=== PATIENT | female | born 1950 | race Caucasian/White ===

== ENCOUNTER → 2022-06-08 12:21 | Outpatient (CLI) | payer MEDICARE, SELFPAY ==
--- NOTE | ~2022-06-08 | DEXA_ITS ---
Bone Density Report Name: TRACY WILL Age: 72 Sex: Female Ethnicity: White Date of : 1950 Indication: postmenopausal; screening for osteoporosis; height loss; Referring Provider: RUBEN, LUNA Moore Study: Bone densitometry was performed. Exam Date: June 08, 2022 Accession number: [id number] Bone Density: Region BMD T-score Z-score Classification AP Spine (L1-L4) 0.742 -2.8 -0.5 Osteoporosis Femoral Neck (Left) 0.603 -2.2 -0.3 Osteopenia Total Hip (Left) 0.644 -2.4 -0.8 Osteopenia Femoral Neck (Right) 0.598 -2.3 -0.3 Osteopenia Total Hip (Right) 0.679 -2.2 -0.5 Osteopenia Total Hip Mean 0.662 -2.3 -0.7 Osteopenia World Health Organization criteria for BMD impression classify patients as: Normal (T-score at or above -1.0), Osteopenia (T-score between -1.0 and -2.5), or Osteoporosis (T-score at or below -2.5). 10-year Fracture Risk: FRAX not reported because: Some T-score for Spine Total or Hip Total or Femoral Neck at or below -2.5 Clinical Information Provided by Patient: Has used the following medications: Vitamin D, Calcium, MTV Patient maximum height was 67 Menopause Age: 50 Drinks caffeinated beverages Onset of menses at age 13 Number of children 0 Impression: The patient has osteoporosis, based on the Total Spine T-score. Discussion: INCREASED RISK OF FRACTURE. BONE DENSITY IS UNDESIRABLY LOW AT ONE OR MORE SKELETAL SITES, CONSISTENT WITH POSTMENOPAUSAL OSTEOPOROSIS. This patient's lowest T-score meets the World Health Organization's (WHO) criteria for osteoporosis at one or more sites (T-score -2.5 or below). In untreated patients, the risk of osteoporotic fracture increases approximately two-fold for each 1.0 SD decrease in T-score. Low bone density is not the only risk factor for fracture; also consider factors such as patient's age, frailty or poor health, risk of falling, risk of injury, previous osteoporotic fracture, family history of osteoporosis, cigarette smoking, low body weight, etc. Not everyone with low bone mineral density has osteoporosis; osteomalacia and other metabolic bone disorders should also be considered. Patients who have osteoporosis should be evaluated for specific diseases and conditions (secondary causes) that may cause or contribute to bone loss. The [place] Association of Clinical Endocrinologists (AACE) and National Osteoporosis Foundation (NOF) recommend pharmacologic intervention for all postmenopausal women whose T-score is in this range. The patient should follow a healthful lifestyle (good nutrition with adequate calcium and vitamin D, and appropriate weight-bearing exercise). Follow-Up: Consider a repeat BMD and Vertebral Fracture Assessment (VFA) exam in 2 years or sooner if medically necessary, to reassess this patient's status. Repor
== END ==
PROVIDERS: PCP Family Medicine; Visit Provider Family Medicine
DX: M81.0 Age-related osteoporosis without current pathological fracture (principal)
CPT/HCPCS: 77080

== ENCOUNTER 2024-02-20 11:15 | Outpatient (CLI) | payer MEDICARE, SELFPAY ==
--- NOTE | ~2024-02-20 | MR_ITS ---
MRI of the lumbar spine Clinical History: Radiculopathy Technique: Axial T2-weighted images, and sagittal T1-weighted, T2-weighted, and and T2 fat-sat images were acquired. Findings: No fracture identified. There is 6 mm anterolisthesis of L4 over L5. No suspicious bone mar row signal reality seen. At L1-L2, there is no disc bulge or herniation. There is mild facet joint hypertrophy. No central can al stenosis or neural foraminal narrowing. At L2-L3, there is minimal disc bulge and mild facet joint hypertrophy. No central canal stenosis. Th ere is minimal bilateral neural foraminal narrowing, right worse than left. At L3-L4, there is mild diffuse disc bulge with moderate facet arthropathy. There is mild central can al stenosis. There is mild to moderate right neural foraminal narrowing, and mild left neural foramin al narrowing. At L4-L5, there is disc bulge/uncovering with severe facet arthropathy. There is moderate central can al stenosis. There is moderate right neural foraminal narrowing. There is minimal left neural foramin al narrowing. At L5-S1, there is moderate degenerative disc narrowing. There is minimal disc bulge with moderate fa cet arthropathy. No central canal stenosis. There is moderate bilateral neural foraminal narrowing, r ight worse than left. Paravertebral soft tissues are unremarkable. Impression: Moderate degenerative spondylosis overall, as detailed above, probably worst at L4-L5. 6 mm anterolisthesis of L4 over L5. Reviewed, dictated and finalized at [facility]. Impression: Moderate degenerative spondylosis overall, as detailed above, probably worst at L4-L5. 6 mm anterolisthesis of L4 over L5.
== END 2024-02-20 11:16 | disposition home or self-care (01) ==
LOC: GOSHIMG 11:16
PROVIDERS: PCP Family Medicine; Visit Provider Physician Assistant Surgical
DX: M47.896 Other spondylosis, lumbar region (principal); M43.16 Spondylolisthesis, lumbar region
CPT/HCPCS: 72148

== ENCOUNTER 2024-09-23 13:53 | Outpatient (CLI) | payer MEDICARE, SELFPAY ==
--- OUTSIDE RECORDS SUMMARY | 2024-09-23 15:17 | XMS_ITS | Clinical Summary ---
Author Organization [facility] Address [address] [place] [id number] Care Team Providers Care Clinical Support Manager Name Role Phone Luis Venegas MD Primary Care Provider [phone] Allergies Active Allergy Reactions Criticality Noted Date Comments Diltiazem Anaphylaxis,Nausea a nd Vomiting,Fatigue High 10/29/2023 Metoprolol Anaphylaxis,Nausea a nd Vomiting,Fatigue High 10/29/2023 Medications apixaban (ELIQUIS) 5 MG tablet Take 1 tablet (5 mg total) by mouth 2 (two) times daily. Active ibandronate (BONIVA) 150 MG tablet Take 1 tablet (150 mg total) by mouth every 30 (thirty) days. Takes on the of the Active levothyroxine (SYNTHROID) 100 MCG tablet Take 1 tablet (100 mcg total) by mouth every morning. Active magnesium oxide (MAG-OX) 400 (240 Mg) MG tablet Take 1 tablet (400 mg total) by mouth daily. Active ferrous sulfate, 65 mg elemental, 325 (65 FE) MG tablet Take 1 tablet (325 mg total) by mouth daily with breakfast. Active omeprazole (PRILOSEC) 40 MG capsule Take 1 capsule (40 mg total) by mouth daily. 90 capsule 1 12/14/2023 Active amiodarone (PACERONE) 200 MG tablet Take 0.5 tablets (100 mg total) by mouth daily. 45 tablet 2 07/01/2024 Active Active Problems Problem Noted Date Diagnosed Date Age-related osteoporosis wit hout current pathological fracture 11/15/2023 Overview (12/14/2023): Last Assessment & Plan: Refill Boniva and check DEXA Atrial fibrillation ([facility]) 09/25/2023 Atrial flutter ([facility]) 09/24/2023 Paroxysmal atrial fibrillation ([facility]) 09/20/2023 Overview (12/14/2023): Last Assessment & Plan: Status post ablation so far doing well remains on anticoagulation and amiodarone at this time recent thyroid labs reviewed Osteoporosis 09/05/2022 Arthralgia of left knee 04/23/2022 Hypothyroidism 01/20/2020 Overview (12/14/2023): Last Assessment & Plan: Recent thyroid labs reviewed Screen for colon cancer 12/21/2017 Overview (12/14/2023): Added automatically from request for surgery [id number] Encounters Date Type Department Care Team Description 07/01/2024 Telephone [facility] [phone] Ana Guerrero CMA Refill Request (Amiodarone/) 07/01/2024 MyChart Message Enc [facility] [phone] Hilda Dowling PA-C amiodarone from Last 3 Months Immunizations Immunization Administration Dates Next Due MODERNA COVID-19 BIVALENT (12+), MRNA, LNP-S, PF 09/16/2022,04/23/2022 MODERNA COVID-19 (12+) MRNA, LNP-S, PF, 100 MCG/ 0.5 ML DOSE 03/23/2021,07/09/2020 MODERNA COVID-19 (12+), MRNA , LNP-S, PF, 50 MCG/0.5 ML (SPIKEVAX) 03/01/2023 MODERNA COVID-19 ([employer] KADE DAMON), MRNA, LNP-S, PF, 50 MCG/ 0.25 ML DOSE 09/04/2021 Family History Medical History Relation Comments Alcohol Abuse Father Heart Father Hypertension Father Arthritis Mother Cancer Mother Miscarriages / Stillbirths Mother Relation Status Comments Father Mother Social History Tobacco Use Types Packs/Day Years Used Date Smoking Tobacco: Never Smokeless Tobacco: Never Tobacco Cessation:Counseling Given: Not Answered Alcohol Use Standard Drinks/Week Comments Yes 1.7 (1 standard drink = 0.6 oz p ure alcohol) one daily glass of wine B1300 Health Literacy Answer Date Recor ded How often do you need to hav e someone help you when you read instructions, pamphlets, or other written material from your doctor or pharmacy? Never 09/24/2023 [facility] Utilities Answer Date Recorded In the past 12 months has e [employer], gas, oil, or water [employer] threatened to shut off services in your home? Patient declined 09/24/2023 Humiliation, Afraid, Rape, and Kick questionnair e Answer Date Recorded Within the last year, have y ou been afraid of your partner or ex-partner? No 09/24/2023 Within the last year, have y ou been humiliated or emotionally abused in other ways by your partner or ex-partner? Patient declined 09/24/2023 Within the last year, have y ou been kicked, hit, slapped, or otherwise physically hurt by your partner or ex-partner? Patient declined 09/24/2023 Within the last year, have y ou been raped or forced to have any kind of sexual activity by your partner or ex-partner? Patient declined 09/24/2023 Social Connection and Isolation Panel [NHANES] A nswer Date Recorded In a typical week, how many times do you talk on the phone with family, friends, or neighbors? Once a week 09/24/2023 How often do you get togethe r with friends or relatives? Once a week 09/24/2023 How often do you attend yazidi or catholic serv ices? Patient declined 09/24/2023 Do you belong to any clubs o r organizations such as yazidi groups, unions, fraternal or athletic groups, or school groups? Patient declined 09/24/2023 How often do you attend meet ings of the clubs or organizations you belong to? Patient declined 09/24/2023 Are you , , di vorced, , never , or living with a partner? 09/24/2023 AUDIT-C Answer Date Recorded Q1: How often do you have a drink containing alcohol? 4 or more times a week 09/24/2023 Q2: How many drinks containi ng alcohol do you have on a typical day when you are drinking? 1 or 2 Q3: How often do you have si x or more drinks on one occasion? Patient declined 09/24/2023 Overall Financial Resource Strain (CARDIA) Answe r Date Recorded How hard is it for you to pa y for the very basics like food, housing, medical care, and heating? Patient declined 09/24/2023 [facility] - Occupational Stress Questionnaire Answer Date Recorded Do you feel stress - tense, restless, nervous, or anxious, or unable to sleep at night because your mind is troubled all the time - these days? Patient declined 09/24/2023 Exercise Vital Sign Answer Date Recorde d On average, how many days pe r week do you engage in moderate to strenuous exercise (like a brisk walk)? 7 days 09/24/2023 On average, how many minutes do you engage in exercise at this level? 50 min 09/24/2023 Hunger Vital Sign Answer Date Recorded Within the past 12 months, y ou worried that your food would run out before you got the money to buy more. Patient declined Within the past 12 months, t he food you bought just didn't last and you didn't have money to get more. Patient declined PRAPARE - Transportation Answer Date Re corded In the past 12 months, has l ack of transportation kept you from medical appointments or from getting medications? Patient declined 09/24/2023 In the past 12 months, has l ack of transportation kept you from meetings, work, or from getting things needed for daily living? Patient declined 09/24/2023 Housing Stability Vital Sign Answer Emeka e Recorded In the last 12 months, was t here a time when you were not able to pay the mortgage or rent on time? Patient declined 09/24/19 24 In the past 12 months, how m any times have you moved where you were living? 1 09/24/2023 At any time in the past 12 m [facility], were you homeless or living in a longterm (including now)? Patient declined 09/24/2023 Comments Unknown Sex and Gender Information Value Date Recorded Sex Assigned at Not on file Legal Sex Female 6:05 PM CDT Gender Identity Not on file Sexual Orientation Lesbian 11/07/2023 2: 50 PM CDT Last Filed Vital Signs Vital Sign Reading Time Taken Comments Blood Pressure 124/72 06/09/2024 2:25 PM [employer] Pulse 88 06/09/2024 2:25 PM [employer] Temperature 36.2 C (97.2 F) 11/13/2023 6:46 AM CDT Respiratory Rate 19 11/13/2023 2:00 PM CDT Oxygen Saturation 93% 06/09/2024 2:25 PM [employer] Inhaled Oxygen Concentration - - Weight 54.3 kg (119 lb 12.8 oz) 06/09/2024 2:25 PM [employer] Height 170.2 cm (5' 7 ) 06/09/2024 2:25 PM [employer] Body Mass Index 18.76 06/09/2024 2:25 PM [employer] Plan of Treatment Upcoming Encounters Date Type Department Care Team (Late st Contact Info) Description 12/08/2024 3:00 PM CDT Office Visit [facility] [address] [place], [place] [phone] Pebbles Nugent MD [facility]. [facility] [address], [place] [id number] Health Maintenance Due Date Last Done Comments Colorectal Cancer Screening Colonoscopy (10 Years) 1950 Hepatitis C 02/27/1968 DTaP, Tdap and Td Vaccines (1 - Tdap) 1969 Annual Medicare Wellness Visit 2015 Dexa Scan (General) 2015 COVID-19 Vaccine ( season) 2024 03/01/2023, 09/16/2022, 04/23/2022, Additional history exists Mammogram Screening 03/02/2025 03/02/2023, 03/07/2022, 01/21/2021, Additional history exists Pneumococcal Vaccine: 50+ Years Completed 12/09/2015, 03/28/2015, 03/28/2006 Zoster Vaccines Completed 03/23/2020, 12/27, 12/09/2015 RSV Immunization or 60+ Years Completed 02/01/2023 Meningococcal B Vaccine Aged Out No l onger eligible based on patient's age to complete this topic Meningococcal Vaccine Aged Out No dede luis e eligible based on patient's age to complete this topic RSV Immunizations Under 20 Months Aged Out No longer eligible based on patient's age to complete this topic Insurance [employer]ET[employer] Advance Directives * Full Code (Latest Code Status on File) Date Activated Date Inactivated Comments 09/25/2023 5:27 PM 09/26/2023 2:00 PM * Full Code Date Activated Date Inactivated Comments 09/24/2023 8:47 PM 09/25/2023 5:27 PM Care Teams Clinical Support Manager Relationship Specialty Start Date End Date Luis Venegas MD [address] [address] PCP - General INTERNAL MEDICINE 09/24/23
--- OUTSIDE RECORDS SUMMARY | 2024-09-23 15:17 | XMS_ITS | Encounter Summary ---
Author Organization [facility] Address [address] [place] [address] Care Team Providers Care Brewmaster Name Role Phone Luis Venegas MD Primary Care Provider [phone] Encounter Details Date Type Department Care Team (Late st Contact Info) Description 09/27/2023 [employer] Message Enc [facility] [address] Hilda Dowling PA-C after surgery question Social History Tobacco Use Types Packs/Day Years Used Date Smoking Tobacco: Never Smokeless Tobacco: Never Alcohol Use Standard Drinks/Week Comments Yes 0 (1 standard drink = 0.6 oz pur e alcohol) 1x wine daily B1300 Health Literacy Answer Date Recor ded How often do you need to hav e someone help you when you read instructions, pamphlets, or other written material from your doctor or pharmacy? Never 09/24/2023 [facility] Utilities Answer Date Recorded In the past 12 months has [facility] [employer], [employer], or water [employer] threatened to shut off services in your [...] week 09/24/2023 How often do you attend anabaptist or adventist serv ices? Patient declined 09/24/2023 Do you belong to any clubs o r organizations such as anabaptist groups, unions, fraternal or athletic groups, or [...] medical care, and heating? Patient declined 09/24/2023 [facility] - Occupational Stress Questionnaire Answer Date Recorded [...] any time in the past 12 m [facility], were you homeless or living in a [place] facility (including now)? Patient declined 09/24/2023 Comments Unknown Sex and Gender Information Value Date Recorded Sex Assigned at Not on file Legal Sex Female 6:05 PM CDT Gender Identity Not on file Sexual Orientation Lesbian 11/07/2023 2: 50 PM CDT documented as of this encounter Functional Status * Are you deaf or do you have serious difficulty hearing Answer Date of Assessment Author Status No 09/24/2023 11:00 PM CDT Zahira Suazo R N Active * Are you blind or do you have serious difficulty seeing, even when wearing glasses? Answer Date of Assessment Author Status No 09/24/2023 11:00 PM KAMRY[employer] Zahira Suazo R N Active * Do you have serious difficulty walking or climbing stairs? Answer Date of Assessment Author Status No 09/24/2023 11:00 PM KAMRYNT Zahira Suazo R N Active * Do you have difficulty dressing or bathing? Answer Date of Assessment Author Status No 09/24/2023 11:00 PM KAMRYNT Zahira Suazo R N Active * Because of a physical, mental, or emotional condition, do you have difficulty doing errands alone such as visiting a doctor's office or shopping? Answer Date of Assessment Author Status No 09/24/2023 11:00 PM CDT Zahira Suazo R N Active documented as of this encounter Mental Status * Because of a physical, mental, or emotional condition, do you have serious difficulty concentrating, remembering, or making decisions? Answer Entry Date Author Status No 09/24/2023 11:00 PM CDT Zahira Suazo R N Active documented in this encounter Plan of Treatment Upcoming Encounters Date Type Department Care Team (Late st Contact Info) Description 12/08/2024 3:00 PM CDT Office Visit [facility] [address] [place] [address] Pebbles Nugent MD [facility]. [facility] [address] [place], [place] [phone] documented as of this encounter Visit Diagnoses Not on filedocumented in this encounter Care Teams Brewmaster Relationship Specialty Start Date End Date Luis Venegas MD [address] [address] PCP - General INTERNAL MEDICINE 09/24/23 documented as of this encounter
--- OUTSIDE RECORDS SUMMARY | 2024-09-23 15:17 | XMS_ITS | Encounter Summary ---
Author Organization [facility] Address [address] [place] [id number] Care Team Providers Care Professional Services Consultant Name Role Phone Luis Venegas MD Primary Care Provider [phone] Reason for Referral * Imaging (Routine) - Closed Specialty Diagnoses / Procedures Referred By Contac t Referred To Contact RADIOLOGY Diagnoses Atrial fibrillation ([facility] HHS/HCC) Procedures XA A-FIB ABLATION Pebbles Nugent MD [address] [address] Phone: tel: fax: Referral ID Status Reason Start Date Expiration Date Visits Re quested Visits Authorized [id number] Closed 10/05/2023 10/04/2024 1 1 * Imaging (Routine) - Authorized Specialty Diagnoses / Procedures Referred By Contac t Referred To Contact RADIOLOGY Diagnoses Atrial fibrillation ([facility] HHS/HCC) Procedures USE TRANSESOPHAGEAL ECHO Pebbles Nugent MD [address] [address] Phone: tel: fax: Referral ID Status Reason Start Date Expiration Date V isits Requested Visits Authorized [id number] Authorized 10/05/2023 10/04/2024 1 1 Encounter Details Date Type Department Care Team (Late st Contact Info) Description 10/03/2023 [employer] Message Enc [facility] [address] [place] [address] Pebbles Nugent MD Three [facility]. [address] [place] [address] Afib Ablation Social History Tobacco Use Types Packs/Day Years [...] from your doctor or pharmacy? Never 09/24/2023 [facility] Utilities Answer Date Recorded In the past 12 months has e [employer], gas, oil, or water [employer] threatened to shut off services in your [...] week 09/24/2023 How often do you attend scientology or tenriism serv ices? Patient declined 09/24/2023 Do you belong to any clubs o r organizations such as scientology groups, unions, fraternal or athletic groups, or [...] medical care, and heating? Patient declined 09/24/2023 [facility] - Occupational Stress [...] any time in the past 12 m [facility], were you homeless or living in a retirement (including now)? Patient declined 09/24/2023 Comments Unknown [...] CDT Zahira Suazo R N Active * Do you have serious difficulty walking or climbing stairs? Answer Date of Assessment Author Status No 09/24/2023 11:00 PM CDT Zahira Suazo R N Active * Do you have difficulty dressing or bathing? Answer Date of Assessment Author Status No 09/24/2023 11:00 PM CDT Zahira Suazo R N Active * Because [...] R N Active documented in this encounter Progress Notes * Kalyani Spencer - 10/05/2023 4:15 PM CDT Patient messaged back. Afib ablation scheduled for 11/13/23 at 7:30 am. Instruction letter sentto patient thru [facility] * Kalyani Spencer - 10/03/2023 11:14 AM CDT [employer] message sent to patient about scheduling afib ablation for Th11/08/23 at 7:30 am with Sherlyn. documented in this encounter Plan of Treatment Upcoming Encounters Date Type Department Care Team (Late st Contact Info) Description 12/08/2024 3:00 PM CDT Office Visit [facility] THREE [facility], [address] [place] [address] Pebbles Nugent MD Three [facility]. 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 Here for A/Fib ablation. Physical Exam: Vitals: Per nursing record. Abdominal: Normal HEENT: Carotid upstroke normal. Lungs: Clear to auscultation bilaterally. CV: PMI normal, S1/S2 normal. No murmurs noted. Extremities: No edema noted Vascular: No aortic/carotid/femoral bruits noted. Pulses: Femoral: 2+ DP: 2+ PT: 2+ Procedure: Consent was obtained from the patient after a full explanation of the risks and benefits of the procedure. The patient was brought to the electrophysiology lab in the fasting state. The patient was prepped and draped in a sterile fashion. General anesthesia administered by the anesthesia service was used for the procedure. Local anesthesia was infiltrated subcutaneously at the access site. Ultrasound guidance was used to access the veins and noted to be patent. Image was saved and archived Two 8Fr sheaths were inserted into the right femoral vein; two sheaths (7 and 9 Fr) were inserted into the left femoral vein. Invasive blood pressure was monitored with a 20Ga left radial arterial sheath. Vein was accessed with ultrasound and noted to be patent. Images were saved and archived. One decapolar catheter was advanced through the 7Fr sheaths under 3D mapping/ICE guidance into the coronary sinus. An 8Fr phased array ICE catheter was advanced to the heart through the 9Fr vascular sheath. Transseptal access: After initiating a heparin bolus and drip to achieve an ACT >350ms, dual transseptal punctures were performed using 3d Mapping/ICE guidance. Both transseptal sheaths were positioned in the left atrium to facilitate mapping and ablation. There were no immediate complications of transseptal access. An 8F Vizigo/Thermocool STSF catheter was inserted via the right femoral vein sheath and advanced across the interatrial septum to the left atrium. An 8F Octaray catheter was inserted via the right femoral vein sheath and advanced across the interatrial septum to the left atrium. Catheters/wires were advanced to the heart under 3d mapping/ICE guidance. CARTO 3D electroanatomic mapping was utilized. EP study: Baseline values: AH 110 HV 45 ms. VA conduction present at baseline, VAWCL < 400 ms. ICE study: Intracardiac echocardiography was used to facilitate a transseptal catheterization, monitor pulmonary vein flow, assist in ablation catheter positioning, assess in suspected or unusual anatomic features and monitor for procedural complications. AV: The aortic valve is tri-leaflet/sclerotic. There is trace aortic regurgitation. LA: The left atrium is dilated. The LA diameter = 5.5 cm. The left atrial appendage is normal. MV: The mitral valve is normal. There is mild mitral regurgitation. RA: The right atrium is normal. RV: The right ventricle is normal with normal function. TV: The tricuspid valve is normal. There is mild tricuspid regurgitation. PV: The pulmonic valve is normal. There is trace pulmonic regurgitation. Interatrial septum: The IAS is patent with no defect. Two transseptal punctures were performed to access the left atrium. LV: The left ventricle is normal with normal function. Pericardium: There is no pericardial effusion. Post procedure: There is no pericardial effusion. Ablation: Atrial fibrillation: A detailed electroanatomic map of the left atrium was created. The left pulmonary drainage pattern has two ostia and the right has two ostia to the LA. Pre-ablation baseline rhythm was normal sinus rhythm. An esophageal temperature probe was used and energy delivery was titrated accordingly. During ablation of the right sided veins, high output pacing was performed to map to the course of the phrenic nerve and ensure lack of phrenic nerve capture at sites of ablation. A right circumferential and left circumferential pulmonary vein isolation was performed. Multiple additional lesions were required for block in the LPV and RPV at the carinas. Entry and exit block were demonstrated after ablation. Adenosine was given and acute reconnection was noted in the LPV. Additional lesions were delivered here with achievement of entrance/exit block. After shutting off the medication, the ablation catheter was taken back to the right atrium and Heparin was discontinued. A redo cavotricuspid isthmus ablation was performed. Bidirectional block was achieved. Heparin was discontinued, sheaths and catheters were pulled back to the right atrium. Final ICE was performed with no changes from baseline (as noted above). Vascade MVP used for hemostasis and TR band applied for radial hemostasis. The patient was transported to the holding area in stable condition. Complications: None. Estimated blood loss: < 5 ml. Summary: Successful pulmonary vein isolation. Successful RA flutter ablation with cavotricuspid isthmus ablation. Recommendations: Resume Eliquis in PACU. Resume Xarelto tonight. Bed rest for 2 hours post sheath pull. PPI x 45 days for prophylaxis. Followup in clinic in 4-6 weeks. Pebbles Nugent MD PS/vs Interpreted: 11/13/23 Transcribed: 11/13/23 Pebbles Nugent MD [employer]OCI[employer] JUDGE Final Result * TYPE & SCREEN (11/13/2023 6:20 AM CDT) ABO/RH A POSITIVE 11/13/2023 7:33 AM CDT [facility] ANTIBODY SCREEN NEGATIVE 11/13/2023 7:33 AM CDT [facility] SAMPLE EXPIRATION 11/16/2023,2 359 11/13/2023 7:33 AM CDT [facility] 11/13/2023 6:20 AM CDT us Pebbles Nugent MD BLOOD BANK TEST ORDERABLES Final Result Performing Organization Address City/[facility]/ZIP Co de Phone Number [facility] [address] [place] [address], [place] [phone] * (ABNORMAL) PROTIME/INR, VENOUS (11/13/2023 6:20 AM CDT) Pathologist [facility] PROTIME 13.1(H) 10.2 - 12.9 SEC 11/13/2023 7:12 AM CDT [facility] INR 1.1 11/13/2023 7:12 AM CDT [facility] Comment: Recommended INR Therapeutic Goals: 2.0-3.0 Routine Therapy 2.5-3.5 Mechanical Prosthetic Valves (High Risk) 11/13/2023 6:20 AM CDT us Pebbles Nugent MD LABORATORY Final Result [facility] [address] [place] [address], [place] [phone] * (ABNORMAL) CBC W/DIFF AUTOMATED (11/13/2023 6:20 AM CDT) WBC 3.08(L) 4.5 - 11.0 x10'3/uL 11/13/2023 6:54 AM CDT [facility] RBC 4.40 4.20 - 5.40 x10'6/uL 11/13/2023 6:54 AM CDT [facility] HGB 14.0 12.0 - 16.0 G/DL 11/13/2023 6:54 AM CDT [facility] HCT 43.0 38.0 - 48.0 % 11/13/2023 6:54 AM CDT [facility] MCV 97.7 81.0 - 99.0 FL 11/13/2023 6:54 AM CDT [facility] MCH 31.8(H) 27.0 - 31.0 PG 11/13/2023 6:54 AM CDT [facility] MCHC 32.6 32.0 - 36.0 G/DL 11/13/2023 6:54 AM CDT [facility] RDW 13.1 11.5 - 14.5 % 11/13/2023 6:54 AM CDT [facility] PLT 259 130 - 400 x10'3/uL 11/13/2023 6:54 AM CDT [facility] MPV 9.3 9.3 - 12.2 FL 11/13/2023 6:54 AM CDT [facility] DIFFERENTIAL TYPE AUTOMATED DIFFERENTIAL 11/13/2023 6:54 AM CDT [facility] NEUTROPHILS % 55.3 % 11/13/2023 6:54 AM CDT [facility] LYMPHOCYTES % 29.5 % 11/13/2023 6:54 AM CDT [facility] MONOCYTES % 11.4 % 11/13/2023 6:54 AM CDT [facility] EOSINOPHILS 1.9 % 11/13/2023 6:54 AM CDT [facility] BASOPHILS 1.6 % 11/13/2023 6:54 AM CDT [facility] IMMATURE GRANS % 0.3 % 11/13/19 6:54 AM CDT [facility] ABS. NEUTROPHILS 1.70(L) 1.80 - 7.70 x10'3/uL 11/13/2023 6:54 AM CDT [facility] ABS. LYMPHOCYTES 0.91(L) 1.00 - 4.80 x10'3/uL 11/13/2023 6:54 AM CDT [facility] ABS. MONOCYTES 0.35 0.24 - 0.86 x10'3/uL 11/13/2023 6:54 AM CDT [facility] ABS. EOSINOPHILS 0.06 0.04 - 0.36 x10'3/uL 11/13/2023 6:54 AM CDT [facility] ABS. BASOPHILS 0.05 0.01 - 0.08 x10'3/uL 11/13/2023 6:54 AM CDT [facility] ABS. IMMATURE GRANULOCYTES 0.01 0.00 - 0.49 x10'3/uL 11/13/2023 6:54 AM CDT [facility] 11/13/2023 6:20 AM CDT Pebbles Nugent MD LABORATORY Final Result [facility] [address] [place] [address], * (ABNORMAL) BASIC METABOLIC PANEL (11/13/2023 6:20 AM CDT) Pathologist [facility] GLUCOSE 87 70 - 99 MG/DL 11/13/2023 7:08 AM CDT [facility] BUN 21(H) 7 - 18 MG/DL 11/13/2023 7:08 AM CDT [facility] CREATININE S/P/B 0.96 0.55 - 1.02 MG/DL 11/13/2023 7:08 AM CDT [facility] SODIUM S/P/B 142 136 - 145 MMOL/L 11/13/2023 7:08 AM CDT [facility] POTASSIUM S/P/B 4.2 3.5 - 5.1 MMOL/L 11/13/2023 7:08 AM CDT [facility] CHLORIDE S/P/B 108 100 - 108 MMOL/L 11/13/2023 7:08 AM CDT [facility] CO2 30.0 21 - 32 MMOL/L 11/13/2023 7:08 AM T [facility] CALCIUM S/P/B 9.2 8.5 - 10.1 MG/DL 11/13/2023 7:08 AM CDT [facility] ANION GAP 4.0(L) 5 - 15 MMOL/L 11/13/2023 7:08 AM T [facility] BUN CREATININE RATIO 21.9 6 - 26 11/13/2023 7:08 AM T [facility] GFR ESTIMATE 62(L) >90 ML/MIN/1.7 3 M2 11/13/2023 7:08 AM T [facility] Comment: NOTE: eGFR is not calculated for patients <18 years of age. This is an estimated GFR calculation using the new CKD EPI creatinine equation without race and so does not require a correction factor for race. This estimated GFR should not be used for calculating drug doses. 11/13/2023 6:20 AM CDT Pebbles Nugent MD LABORATORY Final Result [facility] [address] [place] [address], documented in this encounter Visit Diagnoses Diagnosis Atrial fibrillation (CMS/HCC HHS/HCC)- Primary Atrial fibrillation Atrial fibrillation (CMS/HCC HHS/HCC) Atrial fibrillation documented in this encounter Care Teams Professional Services Consultant Relationship Specialty Start Date End Date Luis Venegas MD [address] [address] PCP - General INTERNAL MEDICINE 09/24/23 documented as of this encounter
--- OUTSIDE RECORDS SUMMARY | 2024-09-23 15:17 | XMS_ITS | Encounter Summary ---
Author Organization [facility] Care Team Providers Care Title Insurance Agent Name Role Phone Dorian Hill MD Primary Care Provider + Aldair Buchanan MD Primary Care Provider [phone] Luis Venegas MD Primary Care Provider [phone] Encounter Details Date Type Department Care Team (Latest Contact Info) Description 03/05/2018 Orders Only [facility] CLINCONV ProviderEulogio MD [address] [place] [address] Social History Tobacco Use Types Packs/Day Years Used Date Smoking Tobacco: Never Smokeless Tobacco: Never Alcohol Use Standard Drinks/Week Comments Yes 7 (1 standard drink = 0.6 oz pur e alcohol) Comments No Sex and Gender Information Value Date Recorded Sex Assigned at Not on file Legal Sex Female 8:36 PM 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 Historical Provider Final Res ult documented in this encounter Visit Diagnoses Not on filedocumented in this encounter Care Teams Title Insurance Agent Relationship Specialty Start Date End Date Dorian Hill MD [address] [place] [id number] PCP - General 01/03/17 12/29/21 Aldair Buchanan MD [facility] [place] [address] PCP - General Family Medicine 12/30/21 11/12/22 Luis Venegas MD [address] [address] PCP - General Internal Medicine 11/13/22 documented as of this encounter
--- OUTSIDE RECORDS SUMMARY | 2024-09-23 15:18 | XMS_ITS | Data Portability ---
Author Organization [place] [facility], Main Office Address [address] [place] [address] Care Team Providers Care First Responder Name Role Phone SOHAIL SHIN Primary Care Provider [phone] SOHAIL SHIN Referring Provider Assessment Encounter Date Assessment Date Assessment LastModified by Organization Details LastModified Time 08/18/2022 08/18/2022 HPI: Patient returns. I saw her in March last year she has moderately severe medial compartment osteoarthritis. She has recently been dealing with plantar fasciitis in the right foot and has been limping and overloading the left knee where the arthritis is. This started to bother the knee. She came in today wanting a cortisone injection because the knee has been fairly symptomatic for her. She has been taking ibuprofen 200 mg once a day. Her plantar fasciitis has improved at this point is asymptomatic. Physical exam: 72-year-old female alert pleasant. She walks well. She has a mild effusion in the left knee. Range of motion is from 3-135 degrees. Mild tenderness over the medial joint line palpation. No lateral joint line tenderness. Minimal pain patellofemoral grind. No increased swelling in either lower extremity. ChloraPrep was used on skin 20 mg Kenalog and 3 cc of 0.5% ropivacaine was injected into the left knee. Risk factors discussed. Impression: 72-year-old female who has moderately severe medial compartment osteoarthritis in the left knee. This has recently been aggravated from having an episode of plantar fasciitis in right foot. I discussed with her that she may want to utilize the ibuprofen on more regular basis. She is very active individual and by taking the anti-inflammatori es on a more regular basis may help control any symptoms today she gets in the left knee. We discussed that she can repeat cortisone injections often as every 3 months in the future as needed. She will keep that in mind. We will see her back as needed. 20 minutes was spent treatment patient with more than half of this in atna-vr-snym conversation Not available 08/18/2022 12:13:43 06/13/2023 06/13/2023 HPI: Patient returns. Patient is here for cortisone injection left knee. Last shot was in July of this year. Patient was recently diagnosed with AFib late last year and has been on Eliquis. because of that patient has not been able to use anti-inflammatori es. Shot in July did give some relief and patient wished to have today. She did wish to discuss surgical options knee Physical exam: 73-year-old female she is 5 ft 5 118 lb. Has mild effusion left knee. Mild varus alignment. Range of motion is from 7-130 degrees. Mild tenderness over the medial joint line palpation. Hip range of motion causes no discomfort. No swelling in either lower extremity. She walks well without limp today. After ChloraPrep was used on skin 20 mg Kenalog and 3 cc of 0.5% ropivacaine was injected into the left knee. Impression: A 73-year-old female who has severe medial compartment osteoarthritis left knee. The I reminded her she can have cortisone injection as often as every 3 months and she would like to make an appointment for this we will set this up. At some point she may need to have total knee arthroplasty as well we discussed this briefly. 20 minutes was spent in treatment patient more than half of this pkjv-ig-uqmc conversation Not available 06/13/2023 16:38:17 09/12/2023 09/12/2023 HPI: Patient returns. She is here for cortisone injection left knee. Last shot was 3 months ago. She gets good relief. She has moderately severe medial compartment osteoarthritis in the knee. She would like to have another injection today. She is on Eliquis and therefore not a candidate for anti-inflammatori es. She is on for AFib. Physical exam: 73-year-old female very alert pleasant. She has no definite effusion in left knee. Mild varus alignment to the knee. Range motion is from 3-135 degrees. Mild tenderness over the medial joint line to palpation. After alcohol prep 20 mg Kenalog and 3 cc of 0.5% ropivacaine was injected into the left knee. Impression: 73-year-old female who has moderately severe medial compartment osteoarthritis in the left knee. Shots continue give her good benefit. I will see her in 3 months. [email or web address] Not available 09/12/2023 15:27:17 Plan of Treatment Reminders Order Date Submit Date Provider Last Modified By Organization Details Last Modified Time Details Appointments None recorded. Lab None recorded. Referral None recorded. Procedures injection/a spiration joint/bursa (PROC) 2023 024 [email or web address] In-Office Order, Internal Use Only DO Not Attach Compendium DO Not Attach Compendium, Do Not Delete/merge, [id number] 14:56:02 injection/a spiration joint/bursa (PROC) - in office procedure, administere d by provider 2023 024 In-Office Order, Internal Use Only DO Not Attach Compendium DO Not Attach Compendium, Do Not Delete/merge, [id number] 15:53:30 injection/a spiration joint/bursa (PROC) - in office procedure, administere d by provider 2022 023 [email or web address] In-Office Order, Internal Use Only DO Not Attach Compendium DO Not Attach Compendium, Do Not Delete/merge, [id number] 12:10:37 Surgeries None recorded. Imaging XR, knee 2023 024 [email or web address] [facility], [facility] [facility] [address], [place], [address], 4 14:42:37 Medication Orders bupivacaine HCl 0.5 % (5 mg/mL) injection solution 2023 024 [facility] #[id number], [address] [facility], [place], [place], [id number], 4 15:48:29 Kenalog 10 mg/mL suspension for injection 2023 024 [facility]40, [address] [place], [place], [id number], 4 15:48:29 Kenalog 10 mg/mL suspension for injection [address] [facility]80, [address] [place], [place], [id number], 4 16:34:32 ropivacaine (PF) 5 mg/mL (0.5 %) injection solution [address] [facility]55775, [address] [place], [place], [id number], 4 16:34:32 Kenalog 10 mg/mL suspension for injection [address] [facility]76231, [address] [place], [place], [id number], 3 13:34:52 ropivacaine (PF) 5 mg/mL (0.5 %) injection solution [address] [facility]35279, [address] [place], [place], [id number], 3 13:34:52 Patient TargetsNo targets recorded. Patient InstructionsNo instructions recorded. Reason for Referral None Reported. Results Created Date Observation Date Name Description Value Unit Range Abnormal Flag Note LastModifiedBy Organization Detail LastModifiedTime 03/09/20 22 03/07/2022 MAMMO , scree cecilia, bilat eral No observ ation record ed. [id number] [facility] [address] [address], [place], [address], 07/26/2022 22:08:42 04/10/20 22 04/10/2022 elect teresa bernal am ne ECG, 12 leads min No observ ation record ed. [id number] Not Available 07/26/2022 22:08:42 04/24/20 22 XR, knee No observ ation record ed. [id number] [facility] [address] [facility] [address], [place], [address], 07/26/2022 22:08:42 06/09/19 23 06/08/2022 DEXA No observ ation record ed. [id number] [facility] [address] [facility] [address], [place], [address], 07/26/2022 22:08:42 06/13/19 24 XR, knee No observ ation record ed. [facility] [address] [facility] [address], [place], [address], 06/13/2023 16:36:18 02/20/20 24 02/20/2024 MRI, lumba r spine , w/wo contr ast No observ ation record ed. [email or web address] [facility] [address] [facility] [address], [place], [address], 02/20/2024 13:52:56 Result Notes None recorded. Problems Name Problem SNOMED Code Status Onset Date Resolution Date Notes Provider Name and Address Organization Details Recorded Time Hypothyroi dism 93240582 Active 2019 Not Available [facility] 3 22:07:18 Pain of left knee joint 7107894762031 07 Active 2021 Not Available [facility] 3 22:07:18 Osteoporos is 85747315 Active 2022 Adlair Buchanan MD [address] [place] [address] [address], [place], [address] , [facility] 3 08:45:04 Problem Notes None recorded. Procedures Surgical History Date Name Laterality Status Provider Name and Address Organization Details Recorded Time Carpal tunnel completed Not Available [facility] 07/26/2022 22:06:27 Imaging Results Imaging Date Name Status LastModified by Organiz ation Details LastModified Time 06/08/2022 DEXA completed [id number] [facility] [address] [facility] [address], [place], [address], 07/26/2022 22:08:42 04/10/2022 electrocardiog yady, routine ECG, 12 leads min completed [id number] Information not available 07/26/2022 22:08:42 04/24/2022 XR, knee completed [id number] 026 [facility] [address] [facility] [address], [place], [address], 07/26/2022 22:08:42 03/07/2022 MAMMO, screening, bilateral completed [id number] [facility] [address], [place], [address], 07/26/2022 22:08:42 06/13/2023 XR, knee completed [facility] [address] [facility] [address], [place], [address], 06/13/2023 16:36:18 02/20/2024 MRI, lumbar spine, w/wo contrast completed [address] [facility] [address] [facility] [address], [place], [address], 02/20/2024 13:52:56 Procedure Notes None recorded. Medical Equipment None Reported. Allergies No known drug allergies Medications Name Sig Start Date Stop Date Status Note LastModified by Organization Details LastModified Time amoxicillin 500 mg capsule TAKE ONE CAPSULE BY MOUTH EVERY 8 HOURS 06/13 completed Not Available Not Available Not Available ofloxacin 0.3 % eye drops 03/08 completed Not Available Not Available Not Available metoprolol succinate ER 50 mg tablet,exte nded release 24 hr active Not Available Not Available Not Available meloxicam 15 mg tablet TAKE 1 TABLET BY MOUTH EVERY DAY 08/18 completed Not Available Not Available Not Available bupivacaine HCl 0.5 % (5 mg/mL) injection solution Take 15 mg by injection route. 2023 active Not Available Not Available Not Avai lable ketorolac 0.5 % eye drops 03/08 completed Not Available Not Available Not Available levothyroxi ne 100 mcg tablet TAKE 1 TABLET BY MOUTH DAILY active Not Available Not Available No t Available prednisolon e acetate 1 % eye drops,suspe nsion 03/08 completed Not Available Not Available Not Available Kenalog 10 mg/mL suspension for injection Take 20 mg by injection route. 2023 active [facility]: [phone] Not Available Not Available Not Available metoprolol tartrate 50 mg tablet active Not Available Not Available No t Available diltiazem 30 mg tablet Take 1 tablet 3 times a day by oral route. active Not Available Not Available No t Available diltiazem 60 mg tablet active Not Available Not Available Not Available neomycin 3.5 mg/g-polymy stefania B 10,000 unit/g-dexa meth 0.1 % eye oint ADMINISTE R A THIN RIBBON INTO THE RIGHT LOWER EYELID AND BLINK EYE FOUR TIMES DAILY FOR 1 WEEK. active Not Available Not Available No t Available metoprolol tartrate 25 mg tablet active Not Available Not Available No t Available ibandronate 150 mg tablet Take 1 tablet every month by oral route. active Not Available Not Available No t Available ropivacaine (PF) 5 mg/mL (0.5 %) injection solution in office 2023 active Not Available Not Available Not Avai lable Eliquis 5 mg tablet active Not Available Not Available No t Available Shingrix (PF) 50 mcg/0.5 mL intramuscul ar suspension, kit 01/19 completed Not Available Not Available Not Available Fluzone High-Dose 2018- (PF) 180 mcg/0.5 mL intramuscul ar syringe ADM 0.5ML IM UTD 01/19 completed Not Available Not Available Not Available Fluad Quad (6 5yr up)(PF) 60 mcg (15 mcg x 4)/0.5mL IM syringe ADM 0.5ML IM UTD 08/19 completed Not Available Not Available Not Available BinaxNOW COVID-19 Ag Self Test kit TEST DIRECTED TODAY 03/08 completed Not Available Not Available Not Available Paxlovid 300 mg (150 mg x 2)-100 mg tablets in a dose pack FOLLOW PACKAGE DIRECTION S active Not Available Not Available No t Available Vitals Date Recorded Body mass index (BMI) Body height Oxygen saturation Oxygen saturation in Arterial blood by Pulse oximetry Heart rate Body temperature Body weight Systolic blood pressure Diastolic blood pressure Provider Name and Address Organization Details Last Updated DateTime 2 17.7 kg/m2 170.18 cm 97 % 97 % 86 /min 96.8 [degF] 05800.9 4 g 156 mm[Hg] 80 mm[Hg] Not Available [facility] 22:06:35 Date Recorded Body mass index (BMI) Body height Body weight Provider Name and Address Organization Details Last Updated DateTime 04/24/2022 19.3 kg/m2 165.1 cm 45021.71 g Not Available [facility] 07/26/2022 22:06:36 Date Recorded Body height Provider Name an d Address Organization Details Last Updated DateTime 08/18/2022 165.1 cm ALYSSA Atkins [facility] 08/18/2022 11:09:47 Date Recorded Body height Body mass index (BMI) Body weight Provider Name and Address Organization Details Last Updated DateTime 06/13/2023 165.1 cm 19.6 kg/m2 48582.9 g ALYSSA [facility] 06/13/2023 15:30:00 Date Recorded Body height Provider Name an d Address Organization Details Last Updated DateTime 09/12/2023 165.1 cm Zoila Mckinney [facility] 09/12/2023 14:53:04 Social History Question Answer Notes LastModified by Organizat ion Details LastModified Time Tobacco Smoking Status Never Smoker Not Available [facility] 07/26/2022 22:06:06 What Is Your Level Of Alcohol Consumption? None [id number] Information not available 07/26/2022 What Is Your Level Of Caffeine Consumption? Occasional [id number].[id number] Information not available 07/26/2022 In The 14 Days Before Symptom Onset, Have You Had Close Contact With A Laboratory-confirm ed COVID-19 While That Case Was Ill? No [id number].[id number] Information not available 07/26/2022 In The 14 Days Before Symptom Onset, Have You Had Close Contact With A Person Who Is Under Investigation For COVID-19 While That Person Was Ill? No MIGRATION.[id number] Information not available 07/26/2022 What Type Of Diet Are You Following? REGULAR MIGRATION.[id number] Information not available 07/26/2022 Do You Use Any Illicit Or Recreational Drugs? No MIGRATION.[id number] 7314 Information not available 07/26/2022 Has Tobacco Cessation Counseling Been Provided? No MIGRATION.[id number] Information not available 07/26/2022 Do You Have Any Dietary Restrictions? No MIGRATION.[id number] Information not available 07/26/2022 Do You Or Have You Ever Used Any Other Forms Of Tobacco Or Nicotine? No MIGRATION.[id number] Information not available 07/26/2022 Sex: Unknown Functional Status Question Answer Note LastModified by Organizat ion Details LastModified Time What is your exercise level? Moderate [id number] Information not available 07/26/2022 Mental Status None recorded. Family History Relationship Description Onset Age of this Age Resolved Age Notes LastModified by Organization Details LastModified Time Father Hypertensive disorder [id number] Not available 07/26/2022 22:06:28 Father Congestive heart failure [id number] Not available 07/26/2022 22:06:28 Mother Malignant neoplasm of ovary [id number] Not available 07/26/2022 22:06:28 Medical History Condition Response BLINDNESS N RHEUMATIC FEVER N KIDNEY STONES N BLADDER PROBLEMS N MRSA N OTHER # 1 N POLIO N LUNG DISEASE/DISORDER N RADIATION / CHEMOTHERAPY N COPD N Other # 2 N BLOOD DISEASES N SURGERY N EAR OR HEARING PROBLEMS N MUMPS N BOWEL PROBLEMS N FEMALE PROBLEMS / INFECTIONS N DEPRESSION (INCLUDING POST ) N STROKE/TIA N THYROID DISEASE N ULCERS N BENIGN PROSTATIC HYPERPLASIA N MEASLES N CERVICALGIA N TB SKIN TEST N MYOCARDIAL INFARCTION N PARAPELGIA N OBESITY N GERD/NAUSEA N ANEURYSM N URINARY/BLADDER/KIDNEY PROBLEMS N CORONARY ARTERY DISEASE (CAD) N MENIERE'S DISEASE N ADDICTION CONCERNS N ENDOMETRIOSIS N USE OF BLOOD THINNERS N SKIN PROBLEMS N EMPHYSEMA N GASTROINTESTINAL DISORDER N MUSCLE,JOINT OR BONE PROBLEMS N GASTROINTESTINAL BLEEDING N BLOOD CLOTS N ASTHMA N CATARACTS N ERECTILE DYSFUNCTION N GI PROBLEMS N CHF N Low Testosterone N NEUROPATHY N INFERTILITY N AIDS/HIV N FRACTURES N CHEMOTHERAPY / RADIATION N VISION/EYE PROBLEMS N LIVER DISEASE N MALE HYPOGONADISM N HYPERTENSION N ANXIETY DISORDER N BLOOD TRANSFUSION N ANEMIA/BLOOD DISORDER Y CHRONIC EAR INFECTIONS N BRONCHITIS N TUBERCULOSIS N GLAUCOMA N FOOT PROBLEM N DIVERTICULITIS N CHICKENPOX N SLEEP APNEA N ALLERGIES/HAYFEVER N INFECTIOUS DISEASE N HEART ARRHYTHMIA N PROSTATE N INSOMNIA N HIGH CHOLESTEROL / HYPERLIPIDEMIA N HYPERTHYROIDISM N EYE PROBLEMS N EATING DISORDER N NEUROLOGICAL PROBLEMS N EDEMA N CHRONIC PAIN SYNDROME N HYPOTHYROIDISM N CAROTID BLOCKAGE N CONSTIPATION N BACK / NECK PROBLEMS N HAVE YOU BEEN HOSPITALIZED OR SEEN IN [facility] ER IN THE PAST YEAR ? N ATHEROSCLEROSIS N BREAST PROBLEMS N DIALYSIS N ECZEMA N FIBROMYALGIA N OSTEOPOROSIS N ARTHRITIS Y NO SIGNIFICANT PAST MEDICAL HISTORY N APPENDICITIS N DIABETES, TYPE N BAD TEETH N HEARTBURN / REFLUX N ADD/ADHD N AUTISM SPECTRUM DISORDER (ASD) N HEPATITIS / LIVER DISEASE N PULMONARY DISEASE N GOUT N SLEEP DISORDER N ALZHEIMER'S DISEASE N PAIN N HERPES N DEMENTIA N HEADACHES/MIGRAINES N SEIZURES/EPILEPSY N VASCULAR DISEASE N PACEMAKER N DIZZINESS N HEART DISEASE/HEART PROBLEMS N KIDNEY DISEASE N DEVELOPMENTAL OR BEHAVIORAL DISORDERS N MULTIPLE SCLEROSIS N SCARLET FEVER N MENTAL DISORDER/ILLNESS N CARDIAC ARRHYTHMIA N CANCER: SPECIFY N PNEUMONIA N ATRIAL FIBRILLATION N Gall Stones N PULMONARY EMBOLISM N AUTOIMMUNE DISEASE N Gynecological History Statement/Question Response Dislike of Light during Menstrual Headac he N Menses Monthly N Abnormal Pap N Current Control Method None Weight gain N Obstetrics History GPAL:G 0 P 0 0 0 0 Immunizations Vaccine Type Date Status Note Provider Nam e and Address Organization Details Recorded Time COVID-19, mRNA, LNP-S, PF, 100 mcg/0.5mL dose or 50 mcg/0.25mL dose 08/06/2020 completed Not Available [facility] 3 22:08:34 Past Encounters Encounter ID Performer Location Encounter Start Date Encounter Closed Date Diagnosis/Indication Diagnosis SNOMED-CT Code Diagnosis ICD10 Code Diagnosis Note [id number] [facility] [place] [address] 08/19/2020 00:00:00 08/20/2020 05:48:10 [id number] [facility] [place] [address] 02/21/2021 00:00:00 02/21/2021 22:08:46 [id number] [facility] [place] [address] [place] [address] 03/08/2022 00:00:00 05/24/2022 13:29:58 [id number] [facility] [place] [address] [place] [address] 04/07/2022 00:00:00 04/10/2022 08:26:25 [id number] [facility] [address] [place] [address] 04/24/2022 00:00:00 04/24/2022 16:51:10 [id number] POLO Thapa [facility] [address] [place] [address] 08/18/2022 11:06:50 08/18/2022 12:19:04 Pain of left knee joint 1733939912 49871 M25.238 [id number] POLO Thapa [facility] [address] [place] [address] 06/13/2023 15:05:29 06/18/2023 14:42:37 Pain of left knee joint 8320488420 50811 M25.238 [id number] POLO Thapa [facility] [address] [place] [address] 09/12/2023 14:49:27 09/12/2023 15:29:00 Pain of left knee joint 7415699770 90415 M25.562 Health Concerns Section Related Observation LastModified by Organization Detai ls LastModified Time None Recorded Concern Status LastModified by Organization Details LastModified Time None Recorded Advance Directives Directive None Recorded Payers Encounter Date Sequence Insurance Name Policy Number Policy [place] Covered Member ID [place] Member ID Guarantor Name 08/18/2022 1 [employer] (MEDICARE REPLACEMENT PPO) [id number] Fide Cueto [id number] Fide Cueto 06/13/2023 1 [employer] (MEDICARE REPLACEMENT PPO) [id number] Fide Cueto [id number] Fide Cueto 09/12/2023 1 [employer] (MEDICARE REPLACEMENT PPO) [id number] Fide Cueto [id number] Fide Cueto OBGyn Episode No OBEpisode recorded.
--- OUTSIDE RECORDS SUMMARY | 2024-09-23 15:18 | XMS_ITS | Data Portability ---
Author Organization [facility] Address [address] [place] [address] Assessment Encounter Date Assessment Date Assessment LastModified by Organization Details LastModified Time 09/24/2023 09/24/2023 Laboratories don e 04/20/2023 glucose 104 BUN 20, creatinine 0.88, sodium 139 potassium 4.5, chloride 99, carbon 26, calcium 9.5, protein 6.8, albumin 4.7, bilirubin 0.5, alkaline phosphatase 474, AST 26, ALT 20, white blood cell count 5100, hemoglobin 12.0, platelet count 303,000 ECG: On 09/24/2023 shows atrial flutter with rapid ventricular response with a ventricular rate of [address] abnormality. ASSESSMENT History of paroxysmal atrial fibrillation and now currently in atrial flutter with rapid ventricular response, [id number] score of 2 History of intolerance to rate controlling drugs including diltiazem CD 120 mg daily and metoprolol 25 mg tabs. Hypothyroidism on levothyroxine Plan with this degree of tachycardia I recommend that she be admitted to the hospital and because of her intolerance to rate controlling drugs particularly metoprolol she would not be a good candidate for sotalol. I spoke with Dr. Nugent the EP service over at [facility]. He would like her to go to the ER which I agree and he would like to perform atrial flutter ablation on her and cardioversion tomorrow and may later do a atrial fibrillation ablation. This is her best long-term option with her intolerance to rate controlling drugs. She will get an echo in the hospital and my concern that she could have a tachycardia induced cardiomyopathy. She is soft with some Gatorade. CARDIAC TESTING STRESS ECHOCARDIOGRAM 01/02/2023 maximal exercise stress echocardiogram negative for myocardial ischemia Exercise tolerance for age and gender appropriate blood pressure response to exercise Not available 09/24/2023 18:20:56 10/11/2023 10/11/2023 no labs Laboratories done 04/20/2023 glucose 104 BUN 20, creatinine 0.88, sodium 139 potassium 4.5, chloride 99, carbon 26, calcium 9.5, protein 6.8, albumin 4.7, bilirubin 0.5, alkaline phosphatase 474, AST 26, ALT 20, white blood cell count 5100, hemoglobin 12.0, platelet count 303,000 ECG: On 09/24/2023 shows atrial flutter with rapid ventricular response with a ventricular rate of [address] abnormality. ASSESSMENT History of paroxysmal atrial fibrillation and now currently in atrial flutter with rapid ventricular response, [id number] score of 2 Status post atrial flutter ablation on 09/25/2023 remains on amiodarone and Eliquis anticoagulation with paroxysmal atrial fibrillation with resolution of her atrial flutter scheduled for atrial fibrillation on 11/13/2023 Dr. Nugent Aortic regurgitation, moderate by echocardiogram done on 09/26/2023 Mild pulmonary hypertension by echocardiogram done on 09/26/2023 Moderate to severe tricuspid regurgitation echocardiogram done on 09/26/2023 Small pericardial effusion by echocardiogram done on 09/26/2023 History of intolerance to rate controlling drugs including diltiazem CD 120 mg daily and metoprolol 25 mg tabs, tolerating amiodarone. Hypothyroidism on levothyroxine Plan I did speak with Dr. Nugent of the EP service about her duration of her amiodarone he would like her to stay on it 200 milligrams daily and we will plan to discontinue it about 3 months after her atrial fibrillation ablation which is scheduled for 11/13/2023. She is doing much better since her atrial flutter ablation but still having some breakthrough atrial fibrillation by symptoms. She is scheduled to follow up with the EP nurse practitioner on the 29 of October and scheduled for her atrial fibrillation ablation on the 12 of November. She is able to exercise and is feeling much better. I would like her to return in 3 months' time by that time the EP service should have performed her ablation and hopefully she will have much less atrial fibrillation we will re-evaluate her at that time. I did tell her to continue on her Eliquis uninterrupted although they told her to stop it on the morning of the ablation. I would like her to get a CBC, basic metabolic profile and a TSH with reflex prior to her follow-up visit in 3 months' time. I asked her to return sooner if she has any cardiac issues or problems. CARDIAC TESTING ECHOCARDIOGRAM 09/26/2023 performed at [facility] which shows the left ventricle is small with normal LV function with ejection fraction of 60 to 65% RV is normal in size and systolic function, moderate to severe tricuspid regurgitation, moderate aortic regurgitation, mild pulmonary hypertension and a small pericardial effusion without tamponade physiology. STRESS ECHOCARDIOGRAM 01/02/2023 maximal exercise stress echocardiogram negative for myocardial ischemia Exercise tolerance for age and gender appropriate blood pressure response to exercise [email or web address] Not available 10/11/2023 17:19:07 01/14/2024 01/14/2024 LABS: 01/09/24. Glucose 107, BUN 20, creatinine 0.97, EGFR 62, sodium 134, potassium 4.4, chloride 95, carbon dioxide 26, calcium 9.2, TSH 1.610, WBC 4.2, hemoglobin 11.5, hematocrit 35.1, platelet count 237. Laboratories done 04/20/2023 glucose 104 BUN 20, creatinine 0.88, sodium 139 potassium 4.5, chloride 99, carbon 26, calcium 9.5, protein 6.8, albumin 4.7, bilirubin 0.5, alkaline phosphatase 474, AST 26, ALT 20, white blood cell count 5100, hemoglobin 12.0, platelet count 303,000 ECG performed on 01/14/2024 shows sinus rhythm with rate of 73 beats per minute, a normal EKG. Compared to the previous EKG which was last done on 09/24/2023 sinus rhythm has replaced atrial flutter with rapid ventricular response. ASSESSMENT History of paroxysmal atrial fibrillation and now currently in atrial flutter with rapid ventricular response, [id number] score of 2 Status post atrial flutter ablation on 09/25/2023 remains on amiodarone and Eliquis anticoagulation with paroxysmal atrial fibrillation with resolution of her atrial flutter scheduled for atrial fibrillation on 11/13/2023 Dr. Nugent And remains on amiodarone but reduced from 200 mg down to 100 mg daily as managed by EP Aortic regurgitation, moderate by echocardiogram done on 09/26/2023 Mild pulmonary hypertension by echocardiogram done on 09/26/2023 Moderate to severe tricuspid regurgitation echocardiogram done on 09/26/2023 Small pericardial effusion by echocardiogram done on 09/26/2023 History of intolerance to rate controlling drugs including diltiazem CD 120 mg daily and metoprolol 25 mg tabs, tolerating amiodarone. Hypothyroidism on levothyroxine Plan I recommend she keep doing her regular exercise with her swimming. She is scheduled to see Dr. Nugent of the EP service on June 02 and we will discuss amiodarone and possibly cessation of the amiodarone. I asked her to continue for now on amiodarone 100 mg daily and Eliquis 5 mg p.o. b.i.d. she will address the amiodarone with Dr. Nugent in May when she sees him next.. I asked her to return sooner if she has any cardiac issues or problems. I will have her get a complete metabolic profile, CBC and a TSH with reflex prior to her follow-up visit in 6 months' time. I will plan to repeat an echocardiogram to reevaluate her TR in September of 2024 CARDIAC TESTING ECHOCARDIOGRAM 09/26/2023 performed at [facility] which shows the left ventricle is small with normal LV function with ejection fraction of 60 to 65% RV is normal in size and systolic function, moderate to severe tricuspid regurgitation, moderate aortic regurgitation, mild pulmonary hypertension and a small pericardial effusion without tamponade physiology. STRESS ECHOCARDIOGRAM 01/02/2023 maximal exercise stress echocardiogram negative for myocardial ischemia Exercise tolerance for age and gender appropriate blood pressure response to exercise Not available 01/14/2024 17:45:11 07/22/2024 07/22/2024 Laboratories performed on 07/14/2024 TSH 0.832, free T4 1.6 glucose 124, BUN 23, creatinine 0.88, GFR 69, sodium 139, potassium 4.3, chloride 100, bicarb 26, calcium 9.4, total protein 6.9 albumin 4.5, bilirubin 0.2, alkaline phosphatase 109, AST 25, ALT 18, white blood cell count 6300, hemoglobin 13.2, platelet count [id number] LABS: 01/09/24. Glucose 107, BUN 20, creatinine 0.97, EGFR 62, sodium 134, potassium 4.4, chloride 95, carbon dioxide 26, calcium 9.2, TSH 1.610, WBC 4.2, hemoglobin 11.5, hematocrit 35.1, platelet count 237. Laboratories done 04/20/2023 glucose 104 BUN 20, creatinine 0.88, sodium 139 potassium 4.5, chloride 99, carbon 26, calcium 9.5, protein 6.8, albumin 4.7, bilirubin 0.5, alkaline phosphatase 474, AST 26, ALT 20, white blood cell count 5100, hemoglobin 12.0, platelet count 303,000 ECG performed on 07/22/2024 shows sinus rhythm with a rate of 80 beats per minute, 1 isolated PAC, compared to the previous EKG done on 01/14/2024, an isolated PAC is now seen. ASSESSMENT Preoperative cardiac evaluation prior to left total knee arthroplasty, or EKG is normal, she swims for 45 minutes a day without any chest pain or shortness of breath and had a normal stress echocardiogram done on 01/02/2023 with normal LV function she has no cardiac contraindication to the procedure. History of paroxysmal atrial fibrillation and now currently in atrial flutter with rapid ventricular response, [id number] score of 2 Status post atrial flutter ablation on 09/25/2023 Paroxysmal atrial fibrillation with atrial fibrillation ablation on 11/13/[address] Nugent and was taken off of amiodarone on 06/16/2024 by [facility] EP service. Aortic regurgitation, moderate by echocardiogram done on 09/26/2023 Mild pulmonary hypertension by echocardiogram done on 09/26/2023 Moderate to severe tricuspid regurgitation echocardiogram done on 09/26/2023 Small pericardial effusion by echocardiogram done on 09/26/2023 History of intolerance to rate controlling drugs including diltiazem CD 120 mg daily and metoprolol 25 mg tabs, tolerating amiodarone. Hypothyroidism on levothyroxine Plan I recommend she keep doing her regular exercise with her swimming. She has no cardiac contraindication to a left total knee arthroplasty. She will just need to stop her Eliquis 48 hours prior to the procedure and then resume it postop when okay with Orthopedic surgery. I will place her on metoprolol succinate 25 mg daily in light of her history of atrial fibrillation to try to prevent recurrence of atrial fibrillation/flutt er. I recommend she continue on Eliquis 5 mg p.o. b.i.d.. I would like her to return in 3 months' time and we will obtain a 2D echo Doppler prior to her follow-up visit to re-evaluate her aortic and tricuspid regurgitation. I would like her to return in 3 months' time for re-evaluation. I will have her get a screening lipid profile. I asked her to return sooner if she has any cardiac issues or problems or has recurrence of atrial fibrillation. I did ask her since she does have an Apple watch to monitor telemetry at least once every 48 hours and to call me if she goes in atrial fibrillation or flutter. CARDIAC TESTING ECHOCARDIOGRAM 09/26/2023 performed at [facility] which shows the left ventricle is small with normal LV function with ejection fraction of 60 to 65% RV is normal in size and systolic function, moderate to severe tricuspid regurgitation, moderate aortic regurgitation, mild pulmonary hypertension and a small pericardial effusion without tamponade physiology. STRESS ECHOCARDIOGRAM 01/02/2023 maximal exercise stress echocardiogram negative for myocardial ischemia Exercise tolerance for age and gender appropriate blood pressure response to [email or web address] Not available 07/22/2024 17:51:53 Plan of Treatment Reminders Order Date Submit Date Provider Last Modified By Organization Details Last Modified Time Details Appointments ANY 15 2024 03:00P Casey Weinberg MD Not available Not available Not available Lab lipid panel, serum 2024 025 [email or web address] [facility], [address], [place], [address], 08/12/2024 07:34:21 CBC 2023 025 OTIS [facility], [address], [place], [address], 07/15/2024 07:40:52 CMP, serum or plasma 2023 025 OTIS [facility], [address], [place], [address], 07/15/2024 07:40:51 TSH + free T4, serum 2023 024 [email or web address] [facility], [address], [place], [address], 01/29/2024 16:36:40 CBC 2023 024 [facility], [address], [place], [address], 01/10/2024 08:31:24 BMP, serum or plasma 2023 024 [facility], [address], [address], [place], [address], 01/10/2024 08:31:23 TSH, serum, reflex free T4 2023 024 [facility], [address], [place], [address], 01/04/2024 03:05:02 Referral None record ed. Procedures None record ed. Surgeries None record ed. Imaging electr ocardi ogram 2024 025 [email or web address] In-Office Order, Internal Use Only DO Not Attach Compendium DO Not Attach Compendium, Do Not Delete/merge, [id number] 07/23/2024 11:00:47 US, byron ledesmaioanton amveronica c, enrrique te, w/ color flow 2024 025 [facility], [address], [address], [place], [address], 07/23/2024 11:00:47 electr ocardi ogram 2023 024 [email or web address] In-Office Order, Internal Use Only DO Not Attach Compendium DO Not Attach Compendium, Do Not Delete/merge, [id number] 01/16/2024 12:59:15 Medication Orders metopr olol succin ate ER 25 mg tablet ,exten ded releas e 24 hr 2024 025 LIN[facility] #[id number], [address], [place], [place], [id number], 07/22/2024 17:52:23 amioda melodie 200 mg tablet 2023 024 [email or web address] [id number], [address], [place], [place], [phone], 01/14/2024 17:30:26 Patient TargetsNo targets recorded. Patient InstructionsNo instructions recorded. Reason for Referral None Reported. Results Created Date Observation Date Name Description Value Unit Range Abnormal Flag Note LastModifiedBy Organization Detail LastModifiedTime 09/24/19 24 09/24/2023 Thyro tropi n [Unit s/vol ume] in Serum or Plasm a thyrotropin [units/volum e] in serum or plasma 1.45 text: 0.358 - 3.74 uIU/mL TSH 1.450 0.358 - 3.74 uIU/M L 09/23 7:52 PM CDT [facility] Not Available Not Available 07/23/2024 11:03:56 09/24/19 24 09/24/2023 Magne sium [Mass /volu me] in Serum or Plasm a magnesium [mass/volume ] in serum or plasma 2.6 text: 1.8 - 2.4 mg/dL high MAGNE SIUM 2.6 (H) 1.8 - 2.4 MG/DL 09/23 7:52 PM CDT [facility] Not Available Not Available 07/23/2024 11:03:56 09/24/19 24 09/24/2023 Magne sium [Mass /volu me] in Serum or Plasm a interpretati on and review of laboratory results Abnorm al Not Available Not Available 11:03:56 09/24/19 24 09/24/2023 Compr ehens angelita metab olic 2000 panel - Serum or Plasm a glucose [mass/volume ] in serum or plasma 96 text: 70 - 99 mg/dL GLUCO SE 96 70 - 99 MG/DL 09/23 7:52 PM CDT [facility] Not Available Not Available 07/23/2024 11:03:56 09/24/19 24 09/24/2023 Compr ehens angelita metab olic 1999 panel - Serum or Plasm a urea nitrogen [mass/volume ] in serum or plasma 20 text: 7 - 18 mg/dL high BUN 20 (H) 7 - 18 MG/DL 09/23 7:52 PM CDT [facility] Not Available Not Available 07/23/2024 11:03:56 09/24/19 24 09/24/2023 Compr ehens angelita metab olic 1999 panel - Serum or Plasm a creatinine [mass/volume ] in serum or plasma 0.86 text: 0.55 - 1.02 mg/dL CREAT ININE S/P/B 0.86 0.55 - 1.02 MG/DL 09/23 7:52 PM CDT [facility] Not Available Not Available 07/23/2024 11:03:56 09/24/19 24 09/24/2023 Compr ehens angelita metab olic 1999 panel - Serum or Plasm a sodium [moles/volum e] in serum or plasma 137 text: 136 - 145 mmol/L SODIU M S/P/B 137 136 - 145 MMOL/ L 09/23 7:52 PM CDT [facility] Not Available Not Available 07/23/2024 11:03:56 09/24/19 24 09/24/2023 Compr ehens angelita metab olic 1999 panel - Serum or Plasm a potassium [moles/volum e] in serum or plasma 4.1 text: 3.5 - 5.1 mmol/L POTAS SIUM S/P/B 4.1 3.5 - 5.1 MMOL/ L 09/23 7:52 PM CDT [facility] Not Available Not Available 07/23/2024 11:03:56 09/24/19 24 09/24/2023 Compr ehens angelita metab olic 2000 panel - Serum or Plasm a chloride [moles/volum e] in serum or plasma 107 text: 100 - 108 mmol/L CHLOR MONTY S/P/B 107 100 - 108 MMOL/ L 09/23 7:[address] [facility] Not Available Not Available 07/23/2024 11:03:56 09/24/19 24 09/24/2023 Compr ehens angelita metab olic 2000 panel - Serum or Plasm a carbon dioxide, total [moles/volum e] in serum or plasma 27.4 text: 21 - 32 mmol/L CO2 27.4 21 - 32 MMOL/ L 09/23 7:52 PM CDT [facility] Not Available Not Available 07/23/2024 11:03:56 09/24/19 24 09/24/2023 Compr ehens angelita metab olic 2000 panel - Serum or Plasm a calcium [mass/volume ] in serum or plasma 9.4 text: 8.5 - 10.1 mg/dL CALCI UM S/P/B 9.4 8.5 - 10.1 MG/DL 09/23 7:[address] [facility] Not Available Not Available 07/23/2024 11:03:56 09/24/19 24 09/24/2023 Compr ehens angelita metab olic 2000 panel - Serum or Plasm a bilirubin.to khoa [mass/volume ] in serum or plasma 0.7 text: 0.2 - 1.2 mg/dL BILIR UBIN TOTAL S/P/B 0.7 0.2 - 1.2 MG/DL 09/23 7:[address] [facility] Not Available Not Available 07/23/2024 11:03:56 09/24/19 24 09/24/2023 Compr ehens angelita metab olic 2000 panel - Serum or Plasm a protein [mass/volume ] in serum or plasma 7.9 text: 6.4 - 8.2 g/dL TOTAL PROTE IN S/P/B 7.9 6.4 - 8.2 G/DL 09/23 7:[address] [facility] Not Available Not Available 07/23/2024 11:03:56 09/24/19 24 09/24/2023 Compr ehens angelita metab olic 1999 panel - Serum or Plasm a albumin [mass/volume ] in serum or plasma 3.9 text: 3.4 - 5.0 g/dL ALBUM IN S/P/B 3.9 3.4 - 5.0 G/DL 09/23 7:52 PM CDT [facility] Not Available Not Available 07/23/2024 11:03:56 09/24/19 24 09/24/2023 Compr ehens angelita metab olic 1999 panel - Serum or Plasm a aspartate aminotransfe rase [enzymatic activity/vol ume] in serum or plasma 51 U/L low: 15U/Lh igh: 37U/L high AST 51 (H) 15 - 37 U/L 09/23 7:52 PM CDT [facility] Not Available Not Available 07/23/2024 11:03:56 09/24/19 24 09/24/2023 Compr ehens angelita metab olic 1999 panel - Serum or Plasm a alanine aminotransfe rase [enzymatic activity/vol ume] in serum or plasma 73 U/L low: 14U/Lh igh: 55U/L high ALT 73 (H) 14 - 55 U/L 09/23 7:52 PM CDT [facility] Not Available Not Available 07/23/2024 11:03:56 09/24/19 24 09/24/2023 Compr ehens angelita metab olic 1999 panel - Serum or Plasm a alkaline phosphatase [enzymatic activity/vol ume] in serum or plasma 159 U/L low: 50U/Lh igh: 136U/L high ALKAL INE PHOSP HATAS E S/P/B 159 (H) 50 - 136 U/L 09/23 7:52 PM CDT [facility] Not Available Not Available 07/23/2024 11:03:56 09/24/19 24 09/24/2023 Compr ehens angelita metab olic 1999 panel - Serum or Plasm a anion gap in serum or plasma 2.6 text: 5 - 15 mmol/L low ANION GAP 2.6 (L) 5 - 15 MMOL/ L 09/23 7:52 PM CDT [facility] Not Available Not Available 07/23/2024 11:03:56 09/24/19 24 09/24/2023 Compr ehens angelita metab olic 1999 panel - Serum or Plasm a urea nitrogen/cre atinine [mass ratio] in serum or plasma 23.3 low: 6high: 26 BUN CREAT ININE RATIO 23.3 6 - 26 09/23 7:52 PM CDT [facility] Not Available Not Available 07/23/2024 11:03:56 09/24/19 24 09/24/2023 Compr ehens angelita metab olic 2000 panel - Serum or Plasm a albumin/glob ulin [mass ratio] in serum or plasma 1 text: 1.0 - 2.0 ratio A/G RATIO 1.0 1.0 - 2.0 RATIO 09/23 7:52 PM CDT [facility] Not Available Not Available 07/23/2024 11:03:56 09/24/19 24 09/24/2023 Compr ehens angelita metab olic 2000 panel - Serum or Plasm a glomerular filtration rate/1.73 sq M.predicted [volume rate/area] in serum, plasma or blood by creatinine-b ased formula (CKD-epi 2020) 71 text: >90 mL/min /1.73 M2 low GFR ESTIM ATE 71 (L) >90 ML/DE N/1.7 3 M2 09/23 7:52 PM CDT [facility] Not Available Not Available 07/23/2024 11:03:56 09/24/19 24 09/24/2023 Compr ehens angelita metab olic 2000 panel - Serum or Plasm a interpretati on and review of laboratory results Abnorm al Not Available Not Available 11:03:56 09/24/19 24 09/24/2023 aPTT in Plate let poor plasm a by Coagu latio n assay APTT in platelet poor plasma by coagulation assay 36.2 text: 25.1 - 36.5 sec PTT 36.2 25.1 - 36.5 SEC 09/23 7:37 PM CDT [facility] Not Available Not Available 07/23/2024 11:03:56 09/24/19 24 09/24/2023 Proth rombi n time (PT) prothrombin time (PT) 16.2 text: 10.2 - 12.9 sec high PROTI ME 16.2 (H) 10.2 - 12.9 SEC 09/23 7:37 PM CDT [facility] Not Available Not Available 07/23/2024 11:03:56 09/24/19 24 09/24/2023 Proth rombi n time (PT) INR in platelet poor plasma by coagulation assay 1.4 INR 1.4 09/23 7:37 PM CDT [facility] Not Available Not Available 07/23/2024 11:03:56 09/24/19 24 09/24/2023 Proth rombi n time (PT) interpretati on and review of laboratory results Abnorm al Not Available Not Available 11:03:56 09/24/19 24 09/24/2023 CBC W Auto Diffe renti al panel - Blood leukocytes [#/volume] in blood by automated count 5.31 text: 4.5 - 11.0 x10'3/ uL WBC 5.31 4.5 - 11.0 x10'3 /uL 09/23 7:22 PM CDT [facility] Not Available Not Available 07/23/2024 11:03:56 09/24/19 24 09/24/2023 CBC W Auto Diffe renti al panel - Blood erythrocytes [#/volume] in blood by automated count 4.46 text: 4.20 - 5.40 x10'6/ uL RBC 4.46 4.20 - 5.40 x10'6 /uL 09/23 7:22 PM CDT [facility] Not Available Not Available 07/23/2024 11:03:56 09/24/19 24 09/24/2023 CBC W Auto Diffe renti al panel - Blood hemoglobin [mass/volume ] in blood 14.2 text: 12.0 - 16.0 g/dL HGB 14.2 12.0 - 16.0 G/DL 09/23 7:22 PM CDT [facility] Not Available Not Available 07/23/2024 11:03:56 09/24/19 24 09/24/2023 CBC W Auto Diffe renti al panel - Blood hematocrit [volume fraction] of blood 43.2 % low: 38%hig h: 48% HCT 43.2 38.0 - 48.0 % 09/23 7:22 PM CDT [facility] Not Available Not Available 07/23/2024 11:03:56 09/24/19 24 09/24/2023 CBC W Auto Diffe renti al panel - Blood MCV [entitic volume] 96.9 text: 81.0 - 99.0 fL MCV 96.9 81.0 - 99.0 FL 09/23 7:22 PM CDT [facility] Not Available Not Available 07/23/2024 11:03:56 09/24/19 24 09/24/2023 CBC W Auto Diffe renti al panel - Blood MCH [entitic mass] 31.8 pg low: 27pghi gh: 31pg high MCH 31.8 (H) 27.0 - 31.0 PG 09/23 7:22 PM CDT [facility] Not Available Not Available 07/23/2024 11:03:56 09/24/19 24 09/24/2023 CBC W Auto Diffe renti al panel - Blood MCHC [mass/volume ] 32.9 text: 32.0 - 36.0 g/dL MCHC 32.9 32.0 - 36.0 G/DL 09/23 7:22 PM CDT [facility] Not Available Not Available 07/23/2024 11:03:56 09/24/19 24 09/24/2023 CBC W Auto Diffe renti al panel - Blood erythrocyte distribution width [entitic volume] by automated count 12.7 % low: 11.5%h igh: 14.5% RDW 12.7 11.5 - 14.5 % 09/23 7:22 PM CDT [facility] Not Available Not Available 07/23/2024 11:03:56 09/24/19 24 09/24/2023 CBC W Auto Diffe renti al panel - Blood platelets [#/volume] in blood 275 text: 130 - 400 x10'3/ uL PLT 275 130 - 400 x10'3 /uL 09/23 7:22 PM CDT [facility] Not Available Not Available 07/23/2024 11:03:56 09/24/19 24 09/24/2023 CBC W Auto Diffe renti al panel - Blood platelet mean volume [entitic volume] in blood 9.4 text: 9.3 - 12.2 fL MPV 9.4 9.3 - 12.2 FL 09/23 7:22 PM CDT [facility] Not Available Not Available 07/23/2024 11:03:56 09/24/19 24 09/24/2023 CBC W Auto Diffe renti al panel - Blood differential cell count method - blood AUTOMA DARLEEN DIFFER ENTIAL DIFFE RENTI AL TYPE AUTOM ATED DIFFE RENTI AL 09/23 7:22 PM CDT [facility] Not Available Not Available 07/23/2024 11:03:56 09/24/19 24 09/24/2023 CBC W Auto Diffe renti al panel - Blood neutrophils/ 100 leukocytes in blood by automated count 72 % NEUTR OPHIL S % 72.0 % 09/23 7:22 PM CDT [facility] Not Available Not Available 07/23/2024 11:03:56 09/24/19 24 09/24/2023 CBC W Auto Diffe renti al panel - Blood lymphocytes/ 100 leukocytes in blood by automated count 16.8 % LYMPH OCYTE S % 16.8 % 09/23 7:22 PM CDT [facility] Not Available Not Available 07/23/2024 11:03:56 09/24/19 24 09/24/2023 CBC W Auto Diffe renti al panel - Blood monocytes/10 0 leukocytes in blood by automated count 9.2 % MONOC YTES % 9.2 % 09/23 7:22 PM CDT [facility] Not Available Not Available 07/23/2024 11:03:56 09/24/19 24 09/24/2023 CBC W Auto Diffe renti al panel - Blood eosinophils/ 100 leukocytes in blood by automated count 0.6 % EOSIN OPHIL S 0.6 % 09/23 7:22 PM CDT [facility] Not Available Not Available 07/23/2024 11:03:56 09/24/19 24 09/24/2023 CBC W Auto Diffe renti al panel - Blood basophils/10 0 leukocytes in blood by automated count 0.8 % BASOP HILS 0.8 % 09/23 7:22 PM CDT [facility] Not Available Not Available 07/23/2024 11:03:56 09/24/19 24 09/24/2023 CBC W Auto Diffe renti al panel - Blood immature granulocytes /100 leukocytes in blood by automated count 0.6 % IMMAT URE GRANS % 0.6 % 09/23 7:22 PM CDT [facility] Not Available Not Available 07/23/2024 11:03:56 09/24/19 24 09/24/2023 CBC W Auto Diffe renti al panel - Blood neutrophils [#/volume] in blood 3.83 text: 1.80 - 7.70 x10'3/ uL ABS. NEUTR OPHIL S 3.83 1.80 - 7.70 x10'3 /uL 04/29 /2024 7:22 PM CDT [facility] Not Available Not Available 07/23/2024 11:03:56 09/24/19 24 09/24/2023 CBC W Auto Diffe renti al panel - Blood lymphocytes [#/volume] in blood 0.89 text: 1.00 - 4.80 x10'3/ uL low ABS. LYMPH OCYTE S 0.89 (L) 1.00 - 4.80 x10'3 /uL 09/23 7:22 PM CDT [facility] Not Available Not Available 07/23/2024 11:03:56 09/24/19 24 09/24/2023 CBC W Auto Diffe renti al panel - Blood monocytes [#/volume] in blood 0.49 text: 0.24 - 0.86 x10'3/ uL ABS. MONOC YTES 0.49 0.24 - 0.86 x10'3 /uL 09/23 7:22 PM CDT [facility] Not Available Not Available 07/23/2024 11:03:56 09/24/19 24 09/24/2023 CBC W Auto Diffe renti al panel - Blood eosinophils [#/volume] in blood 0.03 text: 0.04 - 0.36 x10'3/ uL low ABS. EOSIN OPHIL S 0.03 (L) 0.04 - 0.36 x10'3 /uL 09/23 7:22 PM CDT [facility] Not Available Not Available 07/23/2024 11:03:56 09/24/19 24 09/24/2023 CBC W Auto Diffe renti al panel - Blood basophils [#/volume] in blood 0.04 text: 0.01 - 0.08 x10'3/ uL ABS. BASOP HILS 0.04 0.01 - 0.08 x10'3 /uL 09/23 7:22 PM CDT [facility] Not Available Not Available 07/23/2024 11:03:56 09/24/19 24 09/24/2023 CBC W Auto Diffe renti al panel - Blood immature granulocytes [#/volume] in blood 0.03 text: 0.00 - 0.49 x10'3/ uL ABS. IMMAT URE GRANU LOCYT ES 0.03 0.00 - 0.49 x10'3 /uL 09/23 7:22 PM CDT [facility] Not Available Not Available 07/23/2024 11:03:56 09/24/19 24 09/24/2023 CBC W Auto Diffe renti al panel - Blood interpretati on and review of laboratory results Abnorm al Not Available Not Available 11:03:56 09/25/19 24 09/25/2023 Gluco se [Mass /volu me] in Blood by Autom ated test strip glucose [mass/volume ] in blood by automated test strip 93 mg/dL low: 70mg/d Lhigh: 99mg/d L GLUCO SE POC 93 70 - 99 mg/dL 09/24 8:51 PM CDT [facility] Not Available Not Available 07/23/2024 11:03:57 09/25/19 24 09/25/2023 Magne sium [Mass /volu me] in Serum or Plasm a magnesium [mass/volume ] in serum or plasma 2.5 text: 1.8 - 2.4 mg/dL high MAGNE SIUM 2.5 (H) 1.8 - 2.4 MG/DL 09/24 7:46 AM CDT [facility] Not Available Not Available 07/23/2024 11:03:57 09/25/19 24 09/25/2023 Magne sium [Mass /volu me] in Serum or Plasm a interpretati on and review of laboratory results Abnorm al Not Available Not Available 11:03:57 09/25/19 24 09/25/2023 Compr ehens angelita metab olic 2000 panel - Serum or Plasm a glucose [mass/volume ] in serum or plasma 101 text: 70 - 99 mg/dL high GLUCO SE 101 (H) 70 - 99 MG/DL 09/24 7:46 AM CDT [facility] Not Available Not Available 07/23/2024 11:03:57 09/25/19 24 09/25/2023 Compr ehens angelita metab olic 1999 panel - Serum or Plasm a urea nitrogen [mass/volume ] in serum or plasma 18 text: 7 - 18 mg/dL BUN 18 7 - 18 MG/DL 09/24 7:46 AM CDT [facility] Not Available Not Available 07/23/2024 11:03:57 09/25/19 24 09/25/2023 Compr ehens angelita metab olic 1999 panel - Serum or Plasm a creatinine [mass/volume ] in serum or plasma 0.86 text: 0.55 - 1.02 mg/dL CREAT ININE S/P/B 0.86 0.55 - 1.02 MG/DL 09/24 7:46 AM CDT [facility] Not Available Not Available 07/23/2024 11:03:57 09/25/19 24 09/25/2023 Compr ehens angelita metab olic 1999 panel - Serum or Plasm a sodium [moles/volum e] in serum or plasma 140 text: 136 - 145 mmol/L SODIU M S/P/B 140 136 - 145 MMOL/ L 09/24 7:46 AM CDT [facility] Not Available Not Available 07/23/2024 11:03:57 09/25/19 24 09/25/2023 Compr ehens angelita metab olic 2000 panel - Serum or Plasm a potassium [moles/volum e] in serum or plasma 3.9 text: 3.5 - 5.1 mmol/L POTAS SIUM S/P/B 3.9 3.5 - 5.1 MMOL/ L 09/24 7:46 AM CDT [facility] Not Available Not Available 07/23/2024 11:03:57 09/25/19 24 09/25/2023 Compr ehens angelita metab olic 2000 panel - Serum or Plasm a chloride [moles/volum e] in serum or plasma 109 text: 100 - 108 mmol/L high CHLOR MONTY S/P/B 109 (H) 100 - 108 MMOL/ L 09/24 7:46 AM CDT [facility] Not Available Not Available 07/23/2024 11:03:57 09/25/19 24 09/25/2023 Compr ehens angelita metab olic 2000 panel - Serum or Plasm a carbon dioxide, total [moles/volum e] in serum or plasma 28.1 text: 21 - 32 mmol/L CO2 28.1 21 - 32 MMOL/ L 09/24 7:46 AM CDT [facility] Not Available Not Available 07/23/2024 11:03:57 09/25/19 24 09/25/2023 Compr ehens angelita metab olic 2000 panel - Serum or Plasm a calcium [mass/volume ] in serum or plasma 9.1 text: 8.5 - 10.1 mg/dL CALCI UM S/P/B 9.1 8.5 - 10.1 MG/DL 09/24 7:46 AM CDT [facility] Not Available Not Available 07/23/2024 11:03:57 09/25/19 24 09/25/2023 Compr ehens angelita metab olic 2000 panel - Serum or Plasm a bilirubin.to khoa [mass/volume ] in serum or plasma 0.7 text: 0.2 - 1.2 mg/dL BILIR UBIN TOTAL S/P/B 0.7 0.2 - 1.2 MG/DL 09/24 7:[address] [facility] Not Available Not Available 07/23/2024 11:03:57 09/25/19 24 09/25/2023 Compr ehens angelita metab olic 2000 panel - Serum or Plasm a protein [mass/volume ] in serum or plasma 7.2 text: 6.4 - 8.2 g/dL TOTAL PROTE IN S/P/B 7.2 6.4 - 8.2 G/DL 09/24 7:46 AM CDT [facility] Not Available Not Available 07/23/2024 11:03:57 09/25/19 24 09/25/2023 Compr ehens angelita metab olic 1999 panel - Serum or Plasm a albumin [mass/volume ] in serum or plasma 3.6 text: 3.4 - 5.0 g/dL ALBUM IN S/P/B 3.6 3.4 - 5.0 G/DL 09/24 7:46 AM CDT [facility] Not Available Not Available 07/23/2024 11:03:57 09/25/19 24 09/25/2023 Compr ehens angelita metab olic 1999 panel - Serum or Plasm a aspartate aminotransfe rase [enzymatic activity/vol ume] in serum or plasma 42 U/L low: 15U/Lh igh: 37U/L high AST 42 (H) 15 - 37 U/L 09/24 7:46 AM CDT [facility] Not Available Not Available 07/23/2024 11:03:57 09/25/19 24 09/25/2023 Compr ehens angelita metab olic 1999 panel - Serum or Plasm a alanine aminotransfe rase [enzymatic activity/vol ume] in serum or plasma 62 U/L low: 14U/Lh igh: 55U/L high ALT 62 (H) 14 - 55 U/L 09/24 7:46 AM CDT [facility] Not Available Not Available 07/23/2024 11:03:57 09/25/19 24 09/25/2023 Compr ehens angelita metab olic 2000 panel - Serum or Plasm a alkaline phosphatase [enzymatic activity/vol ume] in serum or plasma 143 U/L low: 50U/Lh igh: 136U/L high ALKAL INE PHOSP HATAS E S/P/B 143 (H) 50 - 136 U/L 09/24 7:46 AM CDT [facility] Not Available Not Available 07/23/2024 11:03:57 09/25/19 24 09/25/2023 Compr ehens angelita metab olic 1999 panel - Serum or Plasm a anion gap in serum or plasma 2.9 text: 5 - 15 mmol/L low ANION GAP 2.9 (L) 5 - 15 MMOL/ L 09/24 7:46 AM CDT [facility] Not Available Not Available 07/23/2024 11:03:57 09/25/19 24 09/25/2023 Compr ehens angelita metab olic 1999 panel - Serum or Plasm a urea nitrogen/cre atinine [mass ratio] in serum or plasma 21.1 low: 6high: 26 BUN CREAT ININE RATIO 21.1 6 - 26 09/24 7:46 AM CDT [facility] Not Available Not Available 07/23/2024 11:03:57 09/25/19 24 09/25/2023 [facility] [employer] angelita metab olic 2000 panel - Serum or Plasm a albumin/glob ulin [mass ratio] in serum or plasma 1 text: 1.0 - 2.0 ratio A/G RATIO 1.0 1.0 - 2.0 RATIO 09/24 7:46 AM T [facility] Not Available Not Available 07/23/2024 11:03:57 09/25/19 24 09/25/2023 [facility] [employer] angelita [employer] olic 2000 panel - Serum or Plasm a glomerular filtration rate/1.73 sq M.predicted [volume rate/area] in serum, plasma or blood by creatinine-b ased formula (CKD-epi 2020) 71 text: >90 mL/min /1.73 M2 low GFR ESTIM ATE 71 (L) >90 ML/DE N/1.7 3 M2 09/24 7:46 AM CDT [facility] Not Available Not Available 07/23/2024 11:03:57 09/25/19 24 09/25/2023 [facility] [employer] angelita metab olic 2000 panel - Serum or Plasm a interpretati on and review of laboratory results Abnorm al Not Available Not Available 11:03:57 09/25/19 24 09/25/2023 CBC W Auto Diffe renti al panel - Blood leukocytes [#/volume] in blood by automated count 4.72 text: 4.5 - 11.0 x10'3/ uL WBC 4.72 4.5 - 11.0 x10'3 /uL 09/24 7:23 AM CDT [facility] Not Available Not Available 07/23/2024 11:03:56 09/25/19 24 09/25/2023 CBC W Auto Diffe renti al panel - Blood erythrocytes [#/volume] in blood by automated count 4.35 text: 4.20 - 5.40 x10'6/ uL RBC 4.35 4.20 - 5.40 x10'6 /uL 09/24 7:23 AM CDT [facility] Not Available Not Available 07/23/2024 11:03:56 09/25/19 24 09/25/2023 CBC W Auto Diffe renti al panel - Blood hemoglobin [mass/volume ] in blood 14 text: 12.0 - 16.0 g/dL HGB 14.0 12.0 - 16.0 G/DL 09/24 7:23 AM CDT [facility] Not Available Not Available 07/23/2024 11:03:56 09/25/19 24 09/25/2023 CBC W Auto Diffe renti al panel - Blood hematocrit [volume fraction] of blood 42.6 % low: 38%hig h: 48% HCT 42.6 38.0 - 48.0 % 09/24 7:23 AM CDT [facility] Not Available Not Available 07/23/2024 11:03:56 09/25/19 24 09/25/2023 CBC W Auto Diffe renti al panel - Blood MCV [entitic volume] 97.9 text: 81.0 - 99.0 fL MCV 97.9 81.0 - 99.0 FL 09/24 7:23 AM CDT [facility] Not Available Not Available 07/23/2024 11:03:56 09/25/19 24 09/25/2023 CBC W Auto Diffe renti al panel - Blood MCH [entitic mass] 32.2 pg low: 27pghi gh: 31pg high MCH 32.2 (H) 27.0 - 31.0 PG 09/24 7:23 AM CDT [facility] Not Available Not Available 07/23/2024 11:03:56 09/25/19 24 09/25/2023 CBC W Auto Diffe renti al panel - Blood MCHC [mass/volume ] 32.9 text: 32.0 - 36.0 g/dL MCHC 32.9 32.0 - 36.0 G/DL 09/24 7:23 AM CDT [facility] Not Available Not Available 07/23/2024 11:03:56 09/25/19 24 09/25/2023 CBC W Auto Diffe renti al panel - Blood erythrocyte distribution width [entitic volume] by automated count 13 % low: 11.5%h igh: 14.5% RDW 13.0 11.5 - 14.5 % 09/24 7:23 AM CDT [facility] Not Available Not Available 07/23/2024 11:03:56 09/25/19 24 09/25/2023 CBC W Auto Diffe renti al panel - Blood platelets [#/volume] in blood 272 text: 130 - 400 x10'3/ uL PLT 272 130 - 400 x10'3 /uL 09/24 7:23 AM CDT [facility] Not Available Not Available 07/23/2024 11:03:56 09/25/19 24 09/25/2023 CBC W Auto Diffe renti al panel - Blood platelet mean volume [entitic volume] in blood 9.4 text: 9.3 - 12.2 fL MPV 9.4 9.3 - 12.2 FL 09/24 7:23 AM CDT [facility] Not Available Not Available 07/23/2024 11:03:56 09/25/19 24 09/25/2023 CBC W Auto Diffe renti al panel - Blood differential cell count method - blood AUTOMA DARLEEN DIFFER ENTIAL DIFFE RENTI AL TYPE AUTOM ATED DIFFE RENTI AL 09/24 7:23 AM CDT [facility] Not Available Not Available 07/23/2024 11:03:56 09/25/19 24 09/25/2023 CBC W Auto Diffe renti al panel - Blood neutrophils/ 100 leukocytes in blood by automated count 69.3 % NEUTR OPHIL S % 69.3 % 09/24 7:23 AM CDT [facility] Not Available Not Available 07/23/2024 11:03:56 09/25/19 24 09/25/2023 CBC W Auto Diffe renti al panel - Blood lymphocytes/ 100 leukocytes in blood by automated count 18 % LYMPH OCYTE S % 18.0 % 09/24 7:23 AM CDT [facility] Not Available Not Available 07/23/2024 11:03:56 09/25/19 24 09/25/2023 CBC W Auto Diffe renti al panel - Blood monocytes/10 0 leukocytes in blood by automated count 10.6 % MONOC YTES % 10.6 % 09/24 7:23 AM CDT [facility] Not Available Not Available 07/23/2024 11:03:56 09/25/19 24 09/25/2023 CBC W Auto Diffe renti al panel - Blood eosinophils/ 100 leukocytes in blood by automated count 0.8 % EOSIN OPHIL S 0.8 % 09/24 7:23 AM CDT [facility] Not Available Not Available 07/23/2024 11:03:56 09/25/19 24 09/25/2023 CBC W Auto Diffe renti al panel - Blood basophils/10 0 leukocytes in blood by automated count 1.1 % BASOP HILS 1.1 % 09/24 7:23 AM CDT [facility] Not Available Not Available 07/23/2024 11:03:56 09/25/19 24 09/25/2023 CBC W Auto Diffe renti al panel - Blood immature granulocytes /100 leukocytes in blood by automated count 0.2 % IMMAT URE GRANS % 0.2 % 09/24 7:23 AM CDT [facility] Not Available Not Available 07/23/2024 11:03:56 09/25/19 24 09/25/2023 CBC W Auto Diffe renti al panel - Blood neutrophils [#/volume] in blood 3.27 text: 1.80 - 7.70 x10'3/ uL ABS. NEUTR OPHIL S 3.27 1.80 - 7.70 x10'3 /uL 09/24 7:23 AM CDT [facility] Not Available Not Available 07/23/2024 11:03:56 09/25/19 24 09/25/2023 CBC W Auto Diffe renti al panel - Blood lymphocytes [#/volume] in blood 0.85 text: 1.00 - 4.80 x10'3/ uL low ABS. LYMPH OCYTE S 0.85 (L) 1.00 - 4.80 x10'3 /uL 09/24 7:23 AM CDT [facility] Not Available Not Available 07/23/2024 11:03:56 09/25/19 24 09/25/2023 CBC W Auto Diffe renti al panel - Blood monocytes [#/volume] in blood 0.5 text: 0.24 - 0.86 x10'3/ uL ABS. MONOC YTES 0.50 0.24 - 0.86 x10'3 /uL 09/24 7:23 AM CDT [facility] Not Available Not Available 07/23/2024 11:03:56 09/25/19 24 09/25/2023 CBC W Auto Diffe renti al panel - Blood eosinophils [#/volume] in blood 0.04 text: 0.04 - 0.36 x10'3/ uL ABS. EOSIN OPHIL S 0.04 0.04 - 0.36 x10'3 /uL 09/24 7:23 AM CDT [facility] Not Available Not Available 07/23/2024 11:03:56 09/25/19 24 09/25/2023 CBC W Auto Diffe renti al panel - Blood basophils [#/volume] in blood 0.05 text: 0.01 - 0.08 x10'3/ uL ABS. BASOP HILS 0.05 0.01 - 0.08 x10'3 /uL 09/24 7:23 AM CDT [facility] Not Available Not Available 07/23/2024 11:03:56 09/25/19 24 09/25/2023 CBC W Auto Diffe renti al panel - Blood immature granulocytes [#/volume] in blood 0.01 text: 0.00 - 0.49 x10'3/ uL ABS. IMMAT URE GRANU LOCYT ES 0.01 0.00 - 0.49 x10'3 /uL 09/24 7:23 AM CDT [facility] Not Available Not Available 07/23/2024 11:03:56 09/25/19 24 09/25/2023 CBC W Auto Diffe renti al panel - Blood interpretati on and review of laboratory results Abnorm al Not Available Not Available 11:03:56 09/26/19 24 09/26/2023 Gluco se [Mass /volu me] in Blood by Autom ated test strip glucose [mass/volume ] in blood by automated test strip 91 mg/dL low: 70mg/d Lhigh: 99mg/d L GLUCO SE POC 91 70 - 99 mg/dL 09/25 6:34 AM T [facility] Not Available Not Available 07/23/2024 11:03:57 11/13/19 24 11/13/2023 Activ ated clott ing time (ACT) of Blood by [place] lat[place] n assay activated clotting time (act) of blood by coagulation assay 253 text: 74 - 125 sec high ACTIV ATED CLOTT ING TIME (ACT) 253 (H) 74 - 125 SEC 11/12 9:36 AM CDT [facility] Not Available Not Available 07/23/2024 11:03:50 11/13/19 24 11/13/2023 Activ ated clott ing time (ACT) of Blood by [place] lat[place] n assay tech code [id number] TECH CODE 603,3 41 11/12 9:36 AM CDT [facility] Not Available Not Available 07/23/2024 11:03:50 11/13/19 24 11/13/2023 Activ ated clott ing time (ACT) of Blood by [place] lat[place] n assay interpretati on and review of laboratory results Abnorm al Not Available Not Available 11:03:50 11/13/19 24 11/13/2023 Gas panel - Arter ial blood service comment [id number] TECH CODE 603,3 41 11/12 9:32 AM CDT [facility] Not Available Not Available 07/23/2024 11:03:50 11/13/19 24 11/13/2023 Gas panel - Arter ial blood pH of blood 7.44 low: 7.35hi gh: 7.45 PH ARTER IAL 7.44 7.35 - 7.45 11/12 9:32 AM CDT [facility] Not Available Not Available 07/23/2024 11:03:50 11/13/19 24 11/13/2023 Gas panel - Arter ial blood carbon dioxide [partial pressure] in blood 35.3 text: 35.0 - 45.0 mm hg PCO2 35.3 35.0 - 45.0 MM HG 11/12 9:32 AM CDT [facility] Not Available Not Available 07/23/2024 11:03:50 11/13/19 24 11/13/2023 Gas panel - Arter ial blood oxygen [partial pressure] in blood 338 text: 80.0 - 100.0 mm hg high PO2 338 (H) 80.0 - 100.0 MM HG 11/12 9:32 AM T [facility] Not Available Not Available 07/23/2024 11:03:50 11/13/19 24 11/13/2023 Gas panel - Arter ial blood base excess in arterial blood by calculation 0 text: mEq/L BE/BA SE EXCES S 0.0 MEQ/L 11/12 9:32 AM T [facility] Not Available Not Available 07/23/2024 11:03:50 11/13/19 24 11/13/2023 Gas panel - Arter ial blood bicarbonate [moles/volum e] in arterial blood 24.1 text: 22.0 - 26.0 mEq/L BICAR B ARTER IAL 24.1 22.0 - 26.0 MEQ/L 11/12 9:32 AM T [facility] Not Available Not Available 07/23/2024 11:03:50 11/13/19 24 11/13/2023 Gas panel - Arter ial blood carbon dioxide, total [moles/volum e] in arterial blood 25 text: mEq/L TOTAL CO2 CAPIL SNEHAL 25 MEQ/L 11/12 9:32 AM T [facility] Not Available Not Available 07/23/2024 11:03:50 11/13/19 24 11/13/2023 Gas panel - Arter ial blood oxygen saturation in arterial blood 100 % low: 90%hig h: 100% O2 Satur ation 100.0 90.0 - 100.0 % 11/12 9:32 AM T [facility] Not Available Not Available 07/23/2024 11:03:50 11/13/19 24 11/13/2023 Gas panel - Arter ial blood sodium [moles/volum e] in arterial blood 142 text: 135.0 - 145.0 mmol/L SODIU M BLOOD GAS 142 135.0 - 145.0 MMOL/ L 11/12 9:32 AM T [facility] Not Available Not Available 07/23/2024 11:03:50 11/13/19 24 11/13/2023 Gas panel - Arter ial blood potassium [moles/volum e] in arterial blood 4.1 text: 3.5 - 4.5 mmol/L POTAS SIUM BLOOD GAS 4.1 3.5 - 4.5 MMOL/ L 11/12 9:32 AM CDT [facility] Not Available Not Available 07/23/2024 11:03:50 11/13/19 24 11/13/2023 Gas panel - Arter ial blood calcium.ioni zed [moles/volum e] in blood 1.2 text: 1.1 - 1.3 mmol/L CALCI UM BLOOD GAS 1.2 1.1 - 1.3 MMOL/ L 11/12 9:32 AM CDT [facility] Not Available Not Available 07/23/2024 11:03:50 11/13/19 24 11/13/2023 Gas panel - Arter ial blood glucose [mass/volume ] in arterial blood 95 text: 70 - 110 mg/dL GLUCO SE POC 95 70 - 110 MG/DL 11/12 9:32 AM T [facility] Not Available Not Available 07/23/2024 11:03:50 11/13/19 24 11/13/2023 Gas panel - Arter ial blood hematocrit [volume fraction] of blood 36 % low: 38%hig h: 48% low HEMAT OCRIT BLOOD GAS 36.0 (L) 38.0 - 48.0 % 11/12 9:32 AM T [facility] Not Available Not Available 07/23/2024 11:03:50 11/13/19 24 11/13/2023 Gas panel - Arter ial blood hemoglobin [mass/volume ] in blood 12.2 text: 12.0 - 16.0 g/dL HEMOG LOBIN BLOOD GAS 12.2 12.0 - 16.0 G/DL 11/12 9:32 AM CDT [facility] Not Available Not Available 07/23/2024 11:03:50 11/13/19 24 11/13/2023 Gas panel - Arter ial blood interpretati on and review of laboratory results Abnorm al Not Available Not Available 11:03:50 11/13/19 24 11/13/2023 Gas panel - Arter ial blood service comment [id number] TECH CODE 603,3 41 11/12 9:15 AM CDT [facility] Not Available Not Available 07/23/2024 11:03:50 11/13/19 24 11/13/2023 Gas panel - Arter ial blood pH of blood 7.43 low: 7.35hi gh: 7.45 PH ARTER IAL 7.43 7.35 - 7.45 11/12 9:15 AM CDT [facility] Not Available Not Available 07/23/2024 11:03:50 11/13/19 24 11/13/2023 Gas panel - Arter ial blood carbon dioxide [partial pressure] in blood 37.3 text: 35.0 - 45.0 mm hg PCO2 37.3 35.0 - 45.0 MM HG 11/12 9:15 AM CDT [facility] Not Available Not Available 07/23/2024 11:03:50 11/13/19 24 11/13/2023 Gas panel - Arter ial blood oxygen [partial pressure] in blood 327 text: 80.0 - 100.0 mm hg high PO2 327 (H) 80.0 - 100.0 MM HG 11/12 9:15 AM CDT [facility] Not Available Not Available 07/23/2024 11:03:50 11/13/19 24 11/13/2023 Gas panel - Arter ial blood base excess in arterial blood by calculation 0 text: mEq/L BE/BA SE EXCES S 0.0 MEQ/L 11/12 9:15 AM CDT [facility] Not Available Not Available 07/23/2024 11:03:50 11/13/19 24 11/13/2023 Gas panel - Arter ial blood bicarbonate [moles/volum e] in arterial blood 24.7 text: 22.0 - 26.0 mEq/L BICAR B ARTER IAL 24.7 22.0 - 26.0 MEQ/L 11/12 9:15 AM CDT [facility] Not Available Not Available 07/23/2024 11:03:50 11/13/19 24 11/13/2023 Gas panel - Arter ial blood carbon dioxide, total [moles/volum e] in arterial blood 26 text: mEq/L TOTAL CO2 CAPIL SNEHAL 26 MEQ/L 11/12 9:15 AM CDT [facility] Not Available Not Available 07/23/2024 11:03:50 11/13/19 24 11/13/2023 Gas panel - Arter ial blood oxygen saturation in arterial blood 100 % low: 90%hig h: 100% O2 Satur ation 100.0 90.0 - 100.0 % 11/12 9:15 AM CDT [facility] Not Available Not Available 07/23/2024 11:03:50 11/13/19 24 11/13/2023 Gas panel - Arter ial blood sodium [moles/volum e] in arterial blood 141 text: 135.0 - 145.0 mmol/L SODIU M BLOOD GAS 141 135.0 - 145.0 MMOL/ L 11/12 9:15 AM CDT [facility] Not Available Not Available 07/23/2024 11:03:50 11/13/19 24 11/13/2023 Gas panel - Arter ial blood potassium [moles/volum e] in arterial blood 4 text: 3.5 - 4.5 mmol/L POTAS SIUM BLOOD GAS 4.0 3.5 - 4.5 MMOL/ L 11/12 9:15 AM CDT [facility] Not Available Not Available 07/23/2024 11:03:50 11/13/19 24 11/13/2023 Gas panel - Arter ial blood calcium.ioni zed [moles/volum e] in blood 1.1 text: 1.1 - 1.3 mmol/L CALCI UM BLOOD GAS 1.1 1.1 - 1.3 MMOL/ L 11/12 9:15 AM CDT [facility] Not Available Not Available 07/23/2024 11:03:50 11/13/19 24 11/13/2023 Gas panel - Arter ial blood glucose [mass/volume ] in arterial blood 96 text: 70 - 110 mg/dL GLUCO SE POC 96 70 - 110 MG/DL 11/12 9:15 AM CDT [facility] Not Available Not Available 07/23/2024 11:03:50 11/13/19 24 11/13/2023 Gas panel - Arter ial blood hematocrit [volume fraction] of blood 36 % low: 38%hig h: 48% low HEMAT OCRIT BLOOD GAS 36.0 (L) 38.0 - 48.0 % 11/12 9:15 AM CDT [facility] Not Available Not Available 07/23/2024 11:03:50 11/13/19 24 11/13/2023 Gas panel - Arter ial blood hemoglobin [mass/volume ] in blood 12.2 text: 12.0 - 16.0 g/dL HEMOG LOBIN BLOOD GAS 12.2 12.0 - 16.0 G/DL 11/12 9:15 AM CDT [facility] Not Available Not Available 07/23/2024 11:03:50 11/13/19 24 11/13/2023 Gas panel - Arter ial blood interpretati on and review of laboratory results Abnorm al Not Available Not Available 11:03:50 11/13/19 24 11/13/2023 Activ ated clott ing time (ACT) of Blood by [employer] lat[employer] n assay activated clotting time (act) of blood by coagulation assay 236 text: 74 - 125 sec high ACTIV ATED CLOTT ING TIME (ACT) 236 (H) 74 - 125 SEC 11/12 9:18 AM CDT [facility] Not Available Not Available 07/23/2024 11:03:50 11/13/19 24 11/13/2023 Activ ated clott ing time (ACT) of Blood by [employer] n assay tech code 802063 TECH CODE 603,3 41 11/12 9:18 AM CDT [facility] Not Available Not Available 07/23/2024 11:03:50 11/13/19 24 11/13/2023 Activ ated clott ing time (ACT) of Blood by [employer]agu latio n assay interpretati on and review of laboratory results Abnorm al Not Available Not Available 11:03:50 11/13/19 24 11/13/2023 Blood type and Indir ect antib adam scree n panel - Blood ABO and Rh group panel - blood A POSITI VE ABO/R H A POSIT ANGELITA 11/12 7:33 AM CDT [facility] Not Available Not Available 07/23/2024 11:03:52 11/13/19 24 11/13/2023 Blood type and Indir ect antib adam scree n panel - Blood blood group antibody screen [presence] in serum or plasma NEGATI VE ANTIB ADAM SCREE N NEGAT ANGELITA 11/12 7:33 AM CDT [facility] Not Available Not Available 07/23/2024 11:03:52 11/13/19 24 11/13/2023 Blood type and Indir ect antib adam scree n panel - Blood specimen expiration date of blood 2023,2 359 SAMPL E EXPIR ATION 11/15 ,2359 11/12 7:33 AM CDT [facility] Not Available Not Available 07/23/2024 11:03:52 11/13/19 24 11/13/2023 Proth rombi n time (PT) prothrombin time (PT) 13.1 text: 10.2 - 12.9 sec high PROTI ME 13.1 (H) 10.2 - 12.9 SEC 11/12 7:[address] [facility] Not Available Not Available 07/23/2024 11:03:52 11/13/19 24 11/13/2023 Proth rombi n time (PT) INR in platelet poor plasma by coagulation assay 1.1 INR 1.1 11/12 7:[address] [facility] Not Available Not Available 07/23/2024 11:03:52 11/13/19 24 11/13/2023 Proth rombi n time (PT) interpretati on and review of laboratory results Abnorm al Not Available Not Available 11:03:52 11/13/19 24 11/13/2023 CBC W Auto Diffe renti al panel - Blood leukocytes [#/volume] in blood by automated count 3.08 text: 4.5 - 11.0 x10'3/ uL low WBC 3.08 (L) 4.5 - 11.0 x10'3 /uL 11/12 6:[address] [facility] Not Available Not Available 07/23/2024 11:03:52 11/13/19 24 11/13/2023 CBC W Auto Diffe renti al panel - Blood erythrocytes [#/volume] in blood by automated count 4.4 text: 4.20 - 5.40 x10'6/ uL RBC 4.40 4.20 - 5.40 x10'6 /uL 11/12 6:[address] [facility] Not Available Not Available 07/23/2024 11:03:52 11/13/19 24 11/13/2023 CBC W Auto Diffe renti al panel - Blood hemoglobin [mass/volume ] in blood 14 text: 12.0 - 16.0 g/dL HGB 14.0 12.0 - 16.0 G/DL 11/12 6:[address] [facility] Not Available Not Available 07/23/2024 11:03:52 11/13/19 24 11/13/2023 CBC W Auto Diffe renti al panel - Blood hematocrit [volume fraction] of blood 43 % low: 38%hig h: 48% HCT 43.0 38.0 - 48.0 % 11/12 6:54 AM CDT [facility] Not Available Not Available 07/23/2024 11:03:52 11/13/19 24 11/13/2023 CBC W Auto Diffe renti al panel - Blood MCV [entitic volume] 97.7 text: 81.0 - 99.0 fL MCV 97.7 81.0 - 99.0 FL 11/12 6:54 AM CDT [facility] Not Available Not Available 07/23/2024 11:03:52 11/13/19 24 11/13/2023 CBC W Auto Diffe renti al panel - Blood MCH [entitic mass] 31.8 pg low: 27pghi gh: 31pg high MCH 31.8 (H) 27.0 - 31.0 PG 11/12 6:54 AM CDT [facility] Not Available Not Available 07/23/2024 11:03:52 11/13/19 24 11/13/2023 CBC W Auto Diffe renti al panel - Blood MCHC [mass/volume ] 32.6 text: 32.0 - 36.0 g/dL MCHC 32.6 32.0 - 36.0 G/DL 11/12 6:54 AM CDT [facility] Not Available Not Available 07/23/2024 11:03:52 11/13/19 24 11/13/2023 CBC W Auto Diffe renti al panel - Blood erythrocyte distribution width [entitic volume] by automated count 13.1 % low: 11.5%h igh: 14.5% RDW 13.1 11.5 - 14.5 % 11/12 6:54 AM CDT [facility] Not Available Not Available 07/23/2024 11:03:52 11/13/19 24 11/13/2023 CBC W Auto Diffe renti al panel - Blood platelets [#/volume] in blood 259 text: 130 - 400 x10'3/ uL PLT 259 130 - 400 x10'3 /uL 11/12 6:54 AM CDT [facility] Not Available Not Available 07/23/2024 11:03:52 11/13/19 24 11/13/2023 CBC W Auto Diffe renti al panel - Blood platelet mean volume [entitic volume] in blood 9.3 text: 9.3 - 12.2 fL MPV 9.3 9.3 - 12.2 FL 11/12 6:54 AM CDT [facility] Not Available Not Available 07/23/2024 11:03:52 11/13/19 24 11/13/2023 CBC W Auto Diffe renti al panel - Blood differential cell count method - blood AUTOMA DARLEEN DIFFER ENTIAL DIFFE RENTI AL TYPE AUTOM ATED DIFFE RENTI AL 11/12 6:54 AM CDT [facility] Not Available Not Available 07/23/2024 11:03:52 11/13/19 24 11/13/2023 CBC W Auto Diffe renti al panel - Blood neutrophils/ 100 leukocytes in blood by automated count 55.3 % NEUTR OPHIL S % 55.3 % 11/12 6:54 AM CDT [facility] Not Available Not Available 07/23/2024 11:03:52 11/13/19 24 11/13/2023 CBC W Auto Diffe renti al panel - Blood lymphocytes/ 100 leukocytes in blood by automated count 29.5 % LYMPH OCYTE S % 29.5 % 11/12 6:54 AM CDT [facility] Not Available Not Available 07/23/2024 11:03:52 11/13/19 24 11/13/2023 CBC W Auto Diffe renti al panel - Blood monocytes/10 0 leukocytes in blood by automated count 11.4 % MONOC YTES % 11.4 % 11/12 6:54 AM CDT [facility] Not Available Not Available 07/23/2024 11:03:52 11/13/19 24 11/13/2023 CBC W Auto Diffe renti al panel - Blood eosinophils/ 100 leukocytes in blood by automated count 1.9 % EOSIN OPHIL S 1.9 % 11/12 6:54 AM CDT [facility] Not Available Not Available 07/23/2024 11:03:52 11/13/19 24 11/13/2023 CBC W Auto Diffe renti al panel - Blood basophils/10 0 leukocytes in blood by automated count 1.6 % BASOP HILS 1.6 % 11/12 6:54 AM CDT [facility] Not Available Not Available 07/23/2024 11:03:52 11/13/19 24 11/13/2023 CBC W Auto Diffe renti al panel - Blood immature granulocytes /100 leukocytes in blood by automated count 0.3 % IMMAT URE GRANS % 0.3 % 11/12 6:54 AM CDT [facility] Not Available Not Available 07/23/2024 11:03:52 11/13/19 24 11/13/2023 CBC W Auto Diffe renti al panel - Blood neutrophils [#/volume] in blood 1.7 text: 1.80 - 7.70 x10'3/ uL low ABS. NEUTR OPHIL S 1.70 (L) 1.80 - 7.70 x10'3 /uL 11/12 6:54 AM CDT [facility] Not Available Not Available 07/23/2024 11:03:52 11/13/19 24 11/13/2023 CBC W Auto Diffe renti al panel - Blood lymphocytes [#/volume] in blood 0.91 text: 1.00 - 4.80 x10'3/ uL low ABS. LYMPH OCYTE S 0.91 (L) 1.00 - 4.80 x10'3 /uL 11/12 6:54 AM CDT [facility] Not Available Not Available 07/23/2024 11:03:52 11/13/19 24 11/13/2023 CBC W Auto Diffe renti al panel - Blood monocytes [#/volume] in blood 0.35 text: 0.24 - 0.86 x10'3/ uL ABS. MONOC YTES 0.35 0.24 - 0.86 x10'3 /uL 11/12 6:54 AM CDT [facility] Not Available Not Available 07/23/2024 11:03:52 11/13/19 24 11/13/2023 CBC W Auto Diffe renti al panel - Blood eosinophils [#/volume] in blood 0.06 text: 0.04 - 0.36 x10'3/ uL ABS. EOSIN OPHIL S 0.06 0.04 - 0.36 x10'3 /uL 11/12 6:54 AM CDT [facility] Not Available Not Available 07/23/2024 11:03:52 11/13/19 24 11/13/2023 CBC W Auto Diffe renti al panel - Blood basophils [#/volume] in blood 0.05 text: 0.01 - 0.08 x10'3/ uL ABS. BASOP HILS 0.05 0.01 - 0.08 x10'3 /uL 11/12 6:54 AM CDT [facility] Not Available Not Available 07/23/2024 11:03:52 11/13/19 24 11/13/2023 CBC W Auto Diffe renti al panel - Blood immature granulocytes [#/volume] in blood 0.01 text: 0.00 - 0.49 x10'3/ uL ABS. IMMAT URE GRANU LOCYT ES 0.01 0.00 - 0.49 x10'3 /uL 11/12 6:54 AM CDT [facility] Not Available Not Available 07/23/2024 11:03:52 11/13/19 24 11/13/2023 CBC W Auto Diffe renti al panel - Blood interpretati on and review of laboratory results Abnorm al Not Available Not Available 11:03:52 11/13/19 24 11/13/2023 Basic metab olic 1999 panel - Serum or Plasm a glucose [mass/volume ] in serum or plasma 87 text: 70 - 99 mg/dL GLUCO SE 87 70 - 99 MG/DL 11/12 7:08 AM T [facility] Not Available Not Available 07/23/2024 11:03:51 11/13/19 24 11/13/2023 Basic metab olic 1999 panel - Serum or Plasm a urea nitrogen [mass/volume ] in serum or plasma 21 text: 7 - 18 mg/dL high BUN 21 (H) 7 - 18 MG/DL 11/12 7:08 AM T [facility] Not Available Not Available 07/23/2024 11:03:51 11/13/19 24 11/13/2023 Basic metab olic 1999 panel - Serum or Plasm a creatinine [mass/volume ] in serum or plasma 0.96 text: 0.55 - 1.02 mg/dL CREAT ININE S/P/B 0.96 0.55 - 1.02 MG/DL 11/12 7:08 AM T [facility] Not Available Not Available 07/23/2024 11:03:51 11/13/19 24 11/13/2023 Basic metab olic 1999 panel - Serum or Plasm a sodium [moles/volum e] in serum or plasma 142 text: 136 - 145 mmol/L SODIU M S/P/B 142 136 - 145 MMOL/ L 11/12 7:08 AM T [facility] Not Available Not Available 07/23/2024 11:03:51 11/13/19 24 11/13/2023 Basic metab olic 1999 panel - Serum or Plasm a potassium [moles/volum e] in serum or plasma 4.2 text: 3.5 - 5.1 mmol/L POTAS SIUM S/P/B 4.2 3.5 - 5.1 MMOL/ L 11/12 7:08 AM CDT [facility] Not Available Not Available 07/23/2024 11:03:51 11/13/19 24 11/13/2023 Basic metab olic 1999 panel - Serum or Plasm a chloride [moles/volum e] in serum or plasma 108 text: 100 - 108 mmol/L CHLOR MONTY S/P/B 108 100 - 108 MMOL/ L 11/12 7:08 AM CDT [facility] Not Available Not Available 07/23/2024 11:03:51 11/13/19 24 11/13/2023 Basic metab olic 1999 panel - Serum or Plasm a carbon dioxide, total [moles/volum e] in serum or plasma 30 text: 21 - 32 mmol/L CO2 30.0 21 - 32 MMOL/ L 11/12 7:08 AM T [facility] Not Available Not Available 07/23/2024 11:03:51 11/13/19 24 11/13/2023 Basic metab olic 1999 panel - Serum or Plasm a calcium [mass/volume ] in serum or plasma 9.2 text: 8.5 - 10.1 mg/dL CALCI UM S/P/B 9.2 8.5 - 10.1 MG/DL 11/12 7:08 AM [facility] Not Available Not Available 07/23/2024 11:03:51 11/13/19 24 11/13/2023 Basic metab olic 1999 panel - Serum or Plasm a anion gap in serum or plasma 4 text: 5 - 15 mmol/L low ANION GAP 4.0 (L) 5 - 15 MMOL/ L 11/12 7:08 AM T [facility] Not Available Not Available 07/23/2024 11:03:51 11/13/19 24 11/13/2023 Basic metab olic 1999 panel - Serum or Plasm a urea nitrogen/cre atinine [mass ratio] in serum or plasma 21.9 low: 6high: 26 BUN CREAT ININE RATIO 21.9 6 - 26 11/12 /2024 7:08 AM CDT [facility] Not Available Not Available 07/23/2024 11:03:51 11/13/1911/13/2023 Basic metab olic 2000 panel - Serum or Plasm a glomerular filtration rate/1.73 sq M.predicted [volume rate/area] in serum, plasma or blood by creatinine-b ased formula (CKD-epi 2020) 62 text: >90 mL/min /1.73 M2 low GFR ESTIM ATE 62 (L) >90 ML/DE N/1.7 3 M2 11/12 7:08 AM CDT [facility] Not Available Not Available 07/23/2024 11:03:51 11/13/19 24 11/13/2023 Basic metab olic 1999 panel - Serum or Plasm a interpretati on and review of laboratory results Abnorm al Not Available Not Available 11:03:51 01/09/20 24 01/10/2024 TSH REFLE X TO T4F TSH 1.610 uIU/m L 0.450- 4.500 Not Available [facility] ([facility]) [address] [place], [address], 01/10/2024 08:31:22 01/09/20 24 01/10/2024 BASIC METAB OLIC PANEL (8) glucose 107 mg/dL 70-99 above high normal Not Available [facility] ([facility]) [address] [place], [address], 01/10/2024 08:31:23 01/09/20 24 01/10/2024 BASIC METAB OLIC PANEL (8) BUN 20 mg/dL 8-27 Not Available [facility] ([facility]) [address] [place], [address], 01/10/2024 08:31:23 01/09/20 24 01/10/2024 BASIC METAB OLIC PANEL (8) creatinine 0.97 mg/dL 0.57-1 .00 Not Available [facility] ([facility]) [address], [place], [address], 01/10/2024 08:31:23 01/09/20 24 01/10/2024 BASIC METAB OLIC PANEL (8) eGFR 62 mL/mi n/1.7 3 >59 Not Available [facility] ([facility]) [address], [place], [address], 01/10/2024 08:31:23 01/09/20 24 01/10/2024 BASIC METAB OLIC PANEL (8) BUN/creatini ne ratio 21 12-28 Not Available [facility] ([facility]) [address], [place], [address], 01/10/2024 08:31:23 01/09/20 24 01/10/2024 BASIC METAB OLIC PANEL (8) sodium 134 mmol/ L 134-14 4 Not Available [facility] ([facility]) [address] [facility], [place], [address], 01/10/2024 08:31:23 01/09/20 24 01/10/2024 BASIC METAB OLIC PANEL (8) potassium 4.4 mmol/ L 3.5-5. 2 Not Available [facility] ([facility]) [address], [place], [address], 01/10/2024 08:31:23 01/09/2001/10/2024 BASIC METAB OLIC PANEL (8) chloride 95 mmol/ L 96-106 below low normal Not Available [facility] ([facility]) [address] [facility], [place], [address], 01/10/2024 08:31:23 01/09/20 24 01/10/2024 BASIC METAB OLIC PANEL (8) carbon dioxide, total 26 mmol/ L 20-29 Not Available [facility] ([facility]) [address] [facility] [place], [address], 01/10/2024 08:31:23 01/09/20 24 01/10/2024 BASIC METAB OLIC PANEL (8) calcium 9.2 mg/dL 8.7-10 .3 Not Available [facility] ([facility]) [address] [facility], [place], [address], 01/10/2024 08:31:23 01/09/20 24 01/10/2024 CBC, PLATE LET, NO DIFFE RENTI AL WBC 4.2 x10e3 /uL 3.4-10 .8 Not Available [facility] ([facility]) [address] [facility], [place], [address], 01/10/2024 08:31:24 01/09/20 24 01/10/2024 CBC, PLATE LET, NO DIFFE RENTI AL RBC 3.55 x10e6 /uL 3.77-5 .28 below low normal Not Available [facility] ([facility]) [address] [facility], [place], [address], 01/10/2024 08:31:24 01/09/20 24 01/10/2024 CBC, PLATE LET, NO DIFFE RENTI AL hemoglobin 11.5 g/dL 11.1-1 5.9 Not Available [facility] ([facility]) [address] [facility], [place], [address], 01/10/2024 08:31:24 01/09/2001/10/2024 CBC, PLATE LET, NO DIFFE RENTI AL hematocrit 35.1 % 34.0-4 6.6 Not Available [facility] ([facility]) [address] [facility], [place], [address], 01/10/2024 08:31:24 01/09/2001/10/2024 CBC, PLATE LET, NO DIFFE RENTI AL MCV 99 fL 79-97 above high normal Not Available [facility] ([facility]) [address] [facility], [place], [address], 01/10/2024 08:31:24 01/09/20 24 01/10/2024 CBC, PLATE LET, NO DIFFE RENTI AL MCH 32.4 pg 26.6-3 3.0 Not Available [facility] ([facility]) [address] [place], [address], 01/10/2024 08:31:24 01/09/20 24 01/10/2024 CBC, PLATE LET, NO DIFFE RENTI AL MCHC 32.8 g/dL 31.5-3 5.7 Not Available [facility] ([facility]) [address] [facility], [place], [address], 01/10/2024 08:31:24 01/09/2001/10/2024 CBC, PLATE LET, NO DIFFE RENTI AL RDW 13.2 % 11.7-1 5.4 Not Available [facility] ([facility]) [address] [place], [address], 01/10/2024 08:31:24 01/09/2001/10/2024 CBC, PLATE LET, NO DIFFE RENTI AL platelets 237 x10e3 /uL 150-45 0 Not Available [facility] ([facility]) [address] [place], [address], 01/10/2024 08:31:24 07/14/1907/15/2024 TSH+F REE T4 TSH 0.832 uIU/m L 0.450- 4.500 Not Available [facility] ([facility]) [address] [place], [address], 07/15/2024 07:40:49 07/14/1907/15/2024 TSH+F REE T4 T4,free(dire ct) 1.60 NG/dL 0.82-1 .77 Not Available [facility] ([facility]) [address] [place], [address], 07/15/2024 07:40:49 07/14/19 25 07/15/2024 CMP14 +EGFR glucose 124 mg/dL 70-99 above high normal Not Available [facility] ([facility]) [address] [place], [address], 07/15/2024 07:40:50 07/14/19 25 07/15/2024 CMP14 +EGFR BUN 23 mg/dL 8-27 Not Available [facility] ([facility]) [address] [place], [address], 07/15/2024 07:40:50 07/14/19 25 07/15/2024 CMP14 +EGFR creatinine 0.88 mg/dL 0.57-1 .00 Not Available [facility] ([facility]) [address] [place], [address], 07/15/2024 07:40:50 07/14/19 25 07/15/2024 CMP14 +EGFR eGFR 69 mL/mi n/1.7 3 >59 Not Available [facility] ([facility]) [address] [place], [address], 07/15/2024 07:40:50 07/14/19 25 07/15/2024 CMP14 +EGFR BUN/creatini ne ratio 26 12-28 Not Available [facility] ([facility]) [address] [place], [address], 07/15/2024 07:40:50 07/14/19 25 07/15/2024 CMP14 +EGFR sodium 139 mmol/ L 134-14 4 Not Available [facility] ([facility]) [address] [place], [address], 07/15/2024 07:40:50 07/14/19 25 07/15/2024 CMP14 +EGFR potassium 4.3 mmol/ L 3.5-5. 2 Not Available [facility] ([facility]) [address] [place], [address], 07/15/2024 07:40:50 07/14/19 25 07/15/2024 CMP14 +EGFR chloride 100 mmol/ L 96-106 Not Available [facility] ([facility]) [address] [place], [address], 07/15/2024 07:40:50 07/14/19 25 07/15/2024 CMP14 +EGFR carbon dioxide, total 26 mmol/ L 20-29 Not Available [facility] ([facility]) [address] [place], [address], 07/15/2024 07:40:50 07/14/19 25 07/15/2024 CMP14 +EGFR calcium 9.4 mg/dL 8.7-10 .3 Not Available [facility] ([facility]) [address] [facility], [place], [address], 07/15/2024 07:40:50 07/14/19 25 07/15/2024 CMP14 +EGFR protein, total 6.9 g/dL 6.0-8. 5 Not Available [facility] ([facility]) [address] [place], [address], 07/15/2024 07:40:50 07/14/19 25 07/15/2024 CMP14 +EGFR albumin 4.5 g/dL 3.8-4. 8 Not Available [facility] ([facility]) [address] [place], [address], 07/15/2024 07:40:50 07/14/19 25 07/15/2024 CMP14 +EGFR globulin, total 2.4 g/dL 1.5-4. 5 Not Available [facility] ([facility]) [address] [place], [address], 07/15/2024 07:40:50 07/14/19 25 07/15/2024 CMP14 +EGFR bilirubin, total 0.2 mg/dL 0.0-1. 2 Not Available [facility] ([facility]) [address] [facility], [place], [address], 07/15/2024 07:40:50 07/14/19 25 07/15/2024 CMP14 +EGFR alkaline phosphatase 109 IU/L 44-121 Not Available [facility] ([facility]) [address] [facility], [place], [address], 07/15/2024 07:40:50 07/14/19 25 07/15/2024 CMP14 +EGFR AST (SGOT) 25 IU/L 0-40 Not Available [facility] ([facility]) [address] [facility], [place], [address], 07/15/2024 07:40:50 07/14/19 25 07/15/2024 CMP14 +EGFR ALT (SGPT) 18 IU/L 0-32 Not Available [facility] ([facility]) [address] [facility], [place], [address], 07/15/2024 07:40:50 07/14/19 25 07/15/2024 CBC, PLATE LET, NO DIFFE RENTI AL WBC 6.3 x10e3 /uL 3.4-10 .8 Not Available [facility] ([facility]) [address] [facility], [place], [address], 07/15/2024 07:40:52 07/14/19 25 07/15/2024 CBC, PLATE LET, NO DIFFE RENTI AL RBC 3.99 x10e6 /uL 3.77-5 .28 Not Available [facility] ([facility]) [address] [place], [address], 07/15/2024 07:40:52 07/14/19 25 07/15/2024 CBC, PLATE LET, NO DIFFE RENTI AL hemoglobin 13.2 g/dL 11.1-1 5.9 Not Available [facility] ([facility]) [address] [place], [address], 07/15/2024 07:40:52 07/14/1907/15/2024 CBC, PLATE LET, NO DIFFE RENTI AL hematocrit 38.9 % 34.0-4 6.6 Not Available [facility] ([facility]) [address] [facility], [place], [address], 07/15/2024 07:40:52 07/14/1907/15/2024 CBC, PLATE LET, NO DIFFE RENTI AL MCV 98 fL 79-97 above high normal Not Available [facility] ([facility]) [address] [place], [address], 07/15/2024 07:40:52 07/14/1907/15/2024 CBC, PLATE LET, NO DIFFE RENTI AL MCH 33.1 pg 26.6-3 3.0 above high normal Not Available [facility] ([facility]) [address] [facility], [place], [address], 07/15/2024 07:40:52 07/14/1907/15/2024 CBC, PLATE LET, NO DIFFE RENTI AL MCHC 33.9 g/dL 31.5-3 5.7 Not Available [facility] ([facility]) [address] [facility], [place], [address], 07/15/2024 07:40:52 07/14/1907/15/2024 CBC, PLATE LET, NO DIFFE RENTI AL RDW 12.1 % 11.7-1 5.4 Not Available [facility] ([facility]) [address] [place], [address], 07/15/2024 07:40:52 07/14/1907/15/2024 CBC, PLATE LET, NO DIFFE RENTI AL platelets 293 x10e3 /uL 150-45 0 Not Available [facility] ([facility]) [address] [place], [address], 07/15/2024 07:40:52 04/17/20 25 09/12/2024 LIPID PANEL cholesterol, total 189 mg/dL 100-19 9 Not Available [facility] ([facility]) [address] [place], [address], 09/12/2024 09:13:44 09/12/19 25 09/12/2024 LIPID PANEL triglyceride s 105 mg/dL 0-149 Not Available [facility] ([facility]) [address] [facility], [place], [address], 09/12/2024 09:13:44 09/12/19 25 09/12/2024 LIPID PANEL HDL cholesterol 76 mg/dL >39 Not Available [facility] ([facility]) [address] [facility], [place], [address], 09/12/2024 09:13:44 09/12/19 25 09/12/2024 LIPID PANEL VLDL cholesterol josr 18 mg/dL 5-40 Not Available [facility] ([facility]) [address] [facility], [place], [address], 09/12/2024 09:13:44 09/12/19 25 09/12/2024 LIPID PANEL LDL chol calc ([facility]) 95 mg/dL 0-99 Not Available [facility] ([facility]) [address] [facility], [place], [address], 09/12/2024 09:13:44 09/25/19 elect rocjeff raymondgr am No observ ation record ed. [email or web address] In-Office Order Internal Use Only DO Not Attach Compendium DO Not Attach Compendium, Do Not Delete/merge, [id number] 09/25/2023 08:47:36 01/14/20 24 01/14/2024 elect carlos graff am No observ ation record ed. OTIS In-Office Order Internal Use Only DO Not Attach Compendium DO Not Attach Compendium, Do Not Delete/merge, [id number] 01/14/2024 17:58:03 01/15/20 24 01/14/2024 [facility] rocar diogr am No observ ation record ed. BARCODE In-Office Order Internal Use Only DO Not Attach Compendium DO Not Attach Compendium, Do Not Delete/merge, [id number] 01/15/2024 15:17:45 07/22/1907/23/2024 elect rocar diogr am No observ ation record ed. OTIS In-Office Order Internal Use Only DO Not Attach Compendium DO Not Attach Compendium, Do Not Delete/merge, [id number] 07/23/2024 07:25:34 07/22/19 [facility] rocjeff diogr am No observ ation record ed. [email or web address] Not Available 07/23 07:29:40 Result Notes None recorded. Problems Name Problem SNOMED Code Status Onset Date Resolution Date Notes Provider Name and Address Organization Details Recorded Time Paroxysmal atrial fibrillatio n 876555263 Active 2023 Saad Weinberg MD Attn: Corrina desir,[address] [place], [address], [place] - [facility] 4 18:09:07 Paroxysmal atrial flutter 149286897 Active 2023 Saad Weinberg MD Attn: Corrina desir,[address] [place], [address], [place] [facility] 4 18:09:08 Hypothyroid ism 03402409 Active 2023 Saad Weinberg MD Attn: Corrina desir,[address] [place], [address], [place] [facility] 4 18:09:09 Atrial fibrillatio n with rapid ventricular response 7394067668324 09 Active 2023 Saad Weinberg MD Attn: Corrina desir,[address] [place], [address], [place] [facility] 4 18:21:53 Aortic valve regurgitati on 16740109 Active 2023 Saad Weinberg MD Attn: Corrina desir[address] [place], [address], [place] [facility] 4 17:17:50 Pulmonary hypertensio n [id number] Active 2023 Saad Weinberg MD Attn: Beckatoni desir,[address] [facility], [place], [address], [place] [facility] 4 17:17:52 Tricuspid valve regurgitati on 993307981 Active 2023 Saad Weinberg MD Attn: Corrina karlee,[address] [facility], [place], [address], [place] [facility] 4 17:17:53 Long-term current use of anticoagula nt 410668638 Active 2023 Saad Weinberg MD Attn: Corrina karlee,[address] [facility], [place], [address], [place] [facility] 4 17:36:38 Long-term current use of amiodarone 4446783984085 06 Active 2023 Saad Weinberg MD Attn: Corrina karlee,[address] [facility], [place], [address], [place] [facility] 4 17:37:03 Pericardial effusion 556481751 Active 2024 Saad Weinberg MD Attn: Corrina karlee,[address] [facility], [place], [address], [place] [facility] 5 17:51:31 Hyperlipide vin screening Active 2024 Saad Weinberg MD Attn: Corrina desir,[address] [facility], [place], [address], [place] [facility] 5 17:52:06 Problem Notes None recorded. Procedures Surgical History None recorded. Imaging Results Imaging Date Name Status LastModified by Organization Details LastModified Time 09/25/2023 electrocardiogram completed [facility] Order Internal Use Only DO Not Attach Compendium DO Not Attach Compendium, Do Not Delete/merge, [id number] 09/25/2023 08:47:36 01/14/2024 electrocardiogram completed [facility] In-Offi ce Order Internal Use Only DO Not Attach Compendium DO Not Attach Compendium, Do Not Delete/merge, [id number] 01/14/2024 17:58:03 01/14/2024 electrocardiogram completed [facility] In-Offi ce Order Internal Use Only DO Not Attach Compendium DO Not Attach Compendium, Do Not Delete/merge, [id number] 01/15/2024 15:17:45 07/23/2024 electrocardiogram completed [facility] In-Offi ce Order Internal Use Only DO Not Attach Compendium DO Not Attach Compendium, Do Not Delete/merge, [id number] 07/23/2024 07:25:34 07/22/2024 electrocardiogram completed [email or web address] Informa tion not available 07/23/2024 07:29:40 Procedure Notes None recorded. Medical Equipment None Reported. Allergies No known drug allergies Medications Name Sig Start Date Stop Date Status Note LastModified by Organization Details LastModified Time amiodarone 200 mg tablet TAKE 1 TABLET BY MOUTH EVERY DAY 01/13 completed Not Available Not Available Not Available metoprolol succinate ER 50 mg tablet,exte nded release 24 hr 10/10 completed Not Available Not Available Not Available omeprazole 40 mg capsule,del ayed release Take by oral route for 90 days. 07/22 completed Not Available Not Available Not Available levothyroxi ne 100 mcg tablet TAKE 1 TABLET DAILY BEFORE BREAKFAST active Not Available Not Available No t Available metoprolol tartrate 50 mg tablet 10/10 completed Not Available Not Available Not Available metoprolol succinate ER 25 mg tablet,exte nded release 24 hr TAKE 1 TABLET BY MOUTH EVERY DAY AT BEDTIME active Not Available Not Available No t Available methylpredn isolone 4 mg tablets in a dose pack FOLLOW PACKAGE DIRECTION S 07/22 completed Not Available Not Available Not Available diltiazem 30 mg tablet Take by oral route for 30 days. 10/10 completed Not Available Not Available Not Available diltiazem 60 mg tablet 10/10 completed Not Available Not Available Not Available neomycin 3.5 mg/g-polymy stefania B 10,000 unit/g-dexa meth 0.1 % eye oint ADMINISTE R A THIN RIBBON INTO THE RIGHT LOWER EYELID AND BLINK EYE FOUR TIMES DAILY FOR 1 WEEK. 09/23 completed Not Available Not Available Not Available amiodarone 100 mg tablet Take 1 tablet every day by oral route. 07/22 completed Not Available Not Available Not Available metoprolol tartrate 25 mg tablet 10/10 completed Not Available Not Available Not Available ibandronate 150 mg tablet TAKE 1 TABLET EVERY 30 DAYS. TAKE IN THE MORNING WITH GLASS OF WATER PRIOR TO FOOD. DON'T LIE DOWN FOR 30 MINUTES. active Not Available Not Available No t Available Eliquis 5 mg tablet TAKE 1 TABLET TWICE A DAY active Not Available Not Available No t Available Vitals Date Recorded Body height Body mass index (BMI) Body weight Heart rate Respiratory rate Oxygen saturation Oxygen saturation in Arterial blood by Pulse oximetry Systolic blood pressure Diastolic blood pressure Provider Name and Address Organization Details Last Updated DateTime 4 170.18 cm 17.6 kg/m2 72883.7 g 136 /min 18 /min 98 % 98 % 130 mm[Hg] 64 mm[Hg] Gaby raza MA [facility] 4 17:13:25 Date Recorded Body height Body mass index (BMI) Body weight Heart rate Oxygen saturation Oxygen saturation in Arterial blood by Pulse oximetry Systolic blood pressure Diastolic blood pressure Provider Name and Address Organization Details Last Updated DateTime 4 170.18 cm 17.6 kg/m2 79978.0 6 g 72 /min 98 % 98 % 110 mm[Hg] 68 mm[Hg] Treasure [place] MA [facility] 4 16:28:09 Date Recorded Body height Body mass index (BMI) Body weight Respiratory rate Heart rate Oxygen saturation Oxygen saturation in Arterial blood by Pulse oximetry Systolic blood pressure Diastolic blood pressure Provider Name and Address Organization Details Last Updated DateTime 4 170.18 cm 18.5 kg/m2 38096.9 g 18 /min 75 /min 99 % 99 % 122 mm[Hg] 76 mm[Hg] Sridhar Banda MA [facility] 4 16:46:20 Date Recorded Body height Provider Name an d Address Organization Details Last Updated DateTime 07/22/2024 170.18 cm Treasure [place] MA [facility] 025 17:06:11 Date Recorded Body mass index (BMI) Body weight Heart rate Oxygen saturation Oxygen saturation in Arterial blood by Pulse oximetry Systolic blood pressure Diastolic blood pressure Provider Name and Address Organization Details Last Updated DateTime 18.5 kg/m2 76030.9 g 83 /min 98 % 98 % 122 mm[Hg] 78 mm[Hg] Ed Jenkins MA [facility] 5 17:18:52 Social History Question Answer Notes LastModified by Organizat ion Details LastModified Time Tobacco Smoking Status Never Smoker Gaby Gama MA null, [facility] 09/24/2023 17:14:16 What Is Your Level Of Alcohol Consumption? None Information not available 10/11/2023 What Is Your Level Of Caffeine Consumption? None Information not available 10/11/2023 What Was The Date Of Your Most Recent Tobacco Screening? 07/22/2024 Information not available 07/22/2024 Do You Use Any Illicit Or Recreational Drugs? No Information not available 10/11/2023 Do You Or Have You Ever Used Any Other Forms Of Tobacco Or Nicotine? No Information not available 10/11/2023 Sex: Unknown Functional Status None recorded. Mental Status None recorded. Family History Nothing Reported. Medical History No medical history recorded. Gynecological HistoryNo gynecological history recorded. Obstetrics History GPAL:G 0 P 0 0 0 0 Past Encounters Encounter ID Performer Location Encounter Start Date Encounter Closed Date Diagnosis/Indication Diagnosis SNOMED-CT Code Diagnosis ICD10 Code Diagnosis Note [id number] Saad Weinberg MD [facility] [place] [facility] [address] [place] [address] 09/24/2023 16:19:41 09/25/2023 11:27:16 Paroxysmal atrial fibrillation 251954754 I48.0 Paroxysmal atrial flutter 338713450 I48.92 Hypothyroidism 19905654 E03.9 Atrial fib rillation with rapid ventricular response 6996816196 34750 I48.91 [id number] Saad Weinberg MD [facility] [place] [facility] [address] [place] [address] 10/11/2023 16:19:25 10/15/2023 09:30:33 Paroxysmal atrial fibrillation 536687146 I48.0 Paroxysmal atrial flutter 466093206 I48.92 Hypothyroidism 99485654 E03.9 Long-term current use of anticoagulant 142592921 Z79.01 Aortic syd ve regurgitation 92999716 I35.1 Pulmonary hypertension 44573483 I27.20 Tricuspid valve regurgitation 080956244 I07.1 [id number] Saad Weinberg MD [facility] [place] [facility] [address] [place] [address] 01/14/2024 16:22:01 01/16/2024 12:59:14 Aortic valve regurgitation 03727855 I35.1 Paroxysmal atrial fibrillation 410424777 I48.0 Paroxysmal atrial flutter 318711711 I48.92 Tricuspid valve regurgitation 328590138 I07.1 Long-term current use of anticoagulant 095322083 Z79.01 Long-term current use of amiodarone 1629996828 92817 Z79.678 [id number] Saad Weinberg MD [facility] [place] [facility] [address] [place] [address] 07/22/2024 16:39:06 07/23/2024 11:00:47 Aortic valve regurgitation 66523312 I35.1 Long-term current use of anticoagulant 031806691 Z79.01 Paroxysmal atrial fibrillation 406775129 I48.0 Paroxysmal atrial flutter 718540649 I48.92 Tricuspid valve regurgitation 408077681 I07.1 Pericardial effusion 373 939320 I31.39 Hyperlipid emia screening 129366329 Z13.220 Health Concerns Section Related Observation LastModified by Organization Detai ls LastModified Time None Recorded Concern Status LastModified by Organization Details LastModified Time None Recorded Advance Directives Directive None Recorded Payers Encounter Date Sequence Insurance Name Policy Number Policy [place] Covered Member ID [place] Member ID Guarantor Name 09/24/2023 1 [employer] (MEDICARE REPLACEMENT PPO) [id number] Fide Cueto [id number] Fide Cueto 10/11/2023 1 [employer] (MEDICARE REPLACEMENT PPO) [id number] Fide Cueto [id number] Fide Cueto 01/14/2024 1 [employer] (MEDICARE REPLACEMENT PPO) [id number] Fide Cueto [id number] Fide Cueto 07/22/2024 1 [employer] (MEDICARE REPLACEMENT PPO) [id number] Fide Cueto [id number] Fide Cueto Notes Date Note Type Note Provider Name and Address Organization Details Recorded Time 09/24/2023 text/html Ms. Cueto i s a 73 year old who was referred for cardiac evaluation and treatment. She is seeing me for second opinion. She has a known history of paroxysmal atrial fibrillation at least since spring of last year. She has paroxysms of atrial fibrillation but she tells me now more more she is in atrial fibrillation that she has normal sinus rhythm. She was symptomatic with some dyspnea and decreased exercise tolerance. To see Dr. Martínez on 09/20/2023 and her heart rate was 140 at that time. I do not have the EKG available to me but he had set her up for an outpatient cardioversion after being placed on antiarrhythmic therapy so I assume they are talking about putting her on sotalol and then cardioverting her. However here in my office today her heart rate is 136 bpm and she is currently in atrial flutter. She complains of some chest tightness when she is on metoprolol but she has not been taking it as she feels poorly when taking the metoprolol. She was felt to have poorly on initial diltiazem CD 120 mg daily. She has been on Eliquis since the fall of last year and assures me she has not missed any doses for more than a month. She tells me she right lower leg exercises rides a bike and and swims and walks her dog but she has now noticed that her exercise capacity is significantly diminished this to what it was just back in the fall . She tells me she seems to go back in and out of the rapid rhythm. She has significant side effects from the rate controlling drugs. She denies any dizziness, syncope, orthopnea, paroxysmal nocturnal dyspnea or lower extremity edema. Saad Weinberg MD Attn: [address] [facility], [place], [address], [facility] 09/24/2023 18:22:07 10/11/2023 text/html Ms. Nory renee a 73 year old returns for follow-up visit . After being sent to [facility] at time of her last visit she did undergo atrial flutter ablation and was converted back to sinus rhythm. However she does have episodes about once a day lasting anywhere from 1 to 2 hours of palpitations which is consistent with her history of atrial fibrillation. She is scheduled to undergo a pulmonary vein isolation/atrial fibrillation with Dr Nugent on November 12 she is now on amiodarone 200 milligrams daily after being loaded with amiodarone with the intent to discontinue in 3 months after her atrial fibrillation ablation. She did have an echocardiogram done at [facility] on 09/26/2023 which shows the left ventricle is small with normal LV function with ejection fraction of 60 to 65% RV is normal in size and systolic function, there is moderate aortic regurgitation, mild pulmonary hypertension moderate to severe tricuspid regurgitation and a small pericardial effusion without tamponade physiology. She is also on Eliquis 5 milligrams 1 p.o. b.i.d. without any significant bleeding although, she does acknowledge she bruises fairly easily. She swims every day for 45 minutes and does run and walk regularly for a couple of miles at a time without any chest pain or any shortness of breath. She is feeling much better since the ablation. She is compliant with her medications. She has not missed any doses of her Eliquis. She denies any dizziness, syncope, orthopnea, paroxysmal nocturnal dyspnea or lower extremity edema. Saad Weinberg MD Attn: Accounting,[address] [facility], [place], [address], [place] [facility] 10/11/2023 17:19:10 01/14/2024 text/html Ms. Nory renee a 73 year old returns for follow-up visit. She did have a pulmonary vein isolation with Dr. Nugent on November 12 and her amiodarone was reduced from 200 mg daily down to 100 mg daily and eventually they plan to discontinue it. she has not had any palpitations consistent with atrial fibrillation and does have a apple watch and does monitor her rhythm on a daily basis without recurrence of atrial fibrillation. She continues on Eliquis 5 mg p.o. b.i.d. without any significant bleeding. She does complain of bruising. She denies any falls or any neurologic complaints. She continues to swim for 45 minutes daily . She is contemplating any a left total knee arthroplasty. She is compliant with her medications. She denies any dizziness, syncope, orthopnea, paroxysmal nocturnal dyspnea or lower extremity edema. Saad Weinberg MD Attn: [address] [place], [address], [facility] 01/14/2024 17:45:26 07/22/2024 text/html Ms. Nory gleason s a 73 year old returns for follow-up visit. She was taken off of amiodarone by the EP service over at [facility] about 4 weeks ago as she had had a atrial fibrillation ablation in October and had an atrial flutter ablation in August of last year. She has not had any palpitations consistent with the atrial fibrillation or flutter. She continues on Eliquis 5 mg p.o. b.i.d. without any significant bleeding. She denies any falls or any neurologic complaints. She continues to swim for 45 minutes daily . She is contemplating any a left total knee arthroplasty. She is compliant with her medications. She denies any dizziness, syncope, orthopnea, paroxysmal nocturnal dyspnea or lower extremity edema. Saad Weinberg MD Attn: [address] [place], [address], [facility] 07/22/2024 17:53:09 OBGyn Episode No OBEpisode recorded.
--- OUTSIDE RECORDS SUMMARY | 2024-09-23 15:18 | XMS_ITS | Encounter Summary ---
Author Organization [facility] Healthcare Address [address] [place] [address] Care Team Providers Care Car Wrecker Name Role Phone Dorian Hill MD Primary Care Provider + Aldair Buchanan MD Primary Care Provider [phone] Luis Venegas MD Primary Care Provider [phone] Encounter Details Date Type Department Care Team (Late st Contact Info) Description 01/21/2020 Telephone [facility] [address] [phone] Viki Dinero, [place] Social History Tobacco Use Types Packs/Day Years Used Date Smoking Tobacco: Never Smokeless Tobacco: Never Alcohol Use Standard Drinks/Week Comments Yes 7 (1 standard drink = 0.6 oz pur e alcohol) Comments No Sex and Gender Information Value Date Recorded Sex Assigned at Not on file Legal Sex Female 8:36 PM [employer] Gender Identity Female 01/22/2024 8:14 PM CDT Sexual Orientation Choose not to disclose 2023 8:14 PM CDT documented as of this encounter Plan of Treatment Not on file documented as of this encounter Visit Diagnoses Not on filedocumented in this encounter Care Teams Car Wrecker Relationship Specialty Start Date End Date Dorian Hill MD [address] [address] PCP - General 01/03/17 12/29/21 Aldair Buchanan MD [facility] [place] [address] PCP - General Family Medicine 12/30/21 11/12/22 Luis Venegas MD [address] [address] PCP - General Internal Medicine 11/13/22 documented as of this encounter
--- OUTSIDE RECORDS SUMMARY | 2024-09-23 15:18 | XMS_ITS | Referral Summary ---
Author Organization [facility] Address [address] [place] [address] Care Team Providers Care Software Educator Name Role Phone Luis Venegas MD Primary Care Provider Encounters Date Type Department Care Team Description 08/03/2024 Results Follow-Up [facility] [address] [place] [address] [address] [facility] [place] [id number] Luis Venegas MD 08/01/2024 2:28 PM INSIGHTS MANAGER - 08/01/2024 11:59 PM INSIGHTS MANAGER Hospital Encounter [facility] at the [address] [id number] Age-related osteoporosis without current pathological fracture Discharge Disposition: Discharge to home or self care from Last 3 Months Allergies Active Allergy Reactions Criticality Noted Date Comments Diltiazem Anaphylaxis,Fatigue, Nausea And Vomiting High 10/29/2023 Metoprolol Anaphylaxis,Fatigue, Nausea And Vomiting High 10/29/2023 Medications apixaban (ELIQUIS) 5 mg tabletIndications :atrial fibrillation Take 1 tablet (5 mg total) by mouth 2 (two) times a day 180 tablet 3 4 Active omeprazole (PriLOSEC) 40 mg capsule Take 1 capsule (40 mg total) by mouth daily 4 Active ferrous sulfate 325 mg (65 mg of elemental iron) tablet Take 1 tablet (325 mg total) by mouth daily Active amiodarone (PACERONE) 200 mg tablet Take 1 tablet (200 mg total) by mouth daily 4 Active magnesium oxide 400 mg magnesium tablet Take 400 mg by mouth daily Active levothyroxine (SYNTHROID) 100 mcg tablet Take 1 tablet (100 mcg total) by mouth daily before breakfast 90 tablet 3 4 04/18/20 25 Active ibandronate (BONIVA) 150 mg tablet TAKE 1 TABLET EVERY 30 DAYS. TAKE IN THE MORNING WITH GLASS OF WATER PRIOR TO FOOD. DON'T LIE DOWN FOR 30 MINUTES. 3 tablet 1 5 Active Active Problems Problem Noted Date Diagnosed Date Hypothyroidism 11/15/2023 Assessment & Plan (11/15/2023 10:19 AM CDT): Recent thyroid labs reviewed Age-related osteoporosis wit hout current pathological fracture 11/15/2023 Assessment & Plan (11/15/2023 10:19 AM CDT): Refill Boniva and check DEXA Paroxysmal atrial fibrillation 09/20/2023 Assessment & Plan (11/15/2023 10:19 AM CDT): Status post ablation so far doing well remains on anticoagulation and amiodarone at this time recent thyroid labs reviewed Screen for colon cancer 12/21/2017 Overview (12/21/2017): Added automatically from request for surgery [id number] Immunizations Immunization Administration Dates Next Due COVID-19 MRNA (MODERNA) .5 M L (50 MCG) VACCINE (12 YEARS AND UP) 03/01/2023 Influenza, Quad, Adjuvantate d, Intramuscular 2020 Influenza, Trivalent, Adjuva nted, Intramuscular 03/16/2018 Influenza, Trivalent, High D ose, Split, Preservative Free, Intramuscular 03/23/2019,03/06/2017,03/16/2016,03/02 Influenza, Trivalent, IM (MDV) 03/27/2012 Influenza, Trivalent, Preser vative Free, Intramuscular 03/28/2006 Influenza, Unspecified 03/01/2023 Moderna Sars-cov-2 Bivalent Vaccine 50 Mcg/0.5 mL (12+ YRS)-Blue/Damico 09/16/2022,04/23/2022 Pneumococcal Conjugate PCV 13 03/28/2015 Pneumococcal Polysaccharide PPV23 12/09/2015,05/2005 ZOSTER LIVE 12/09/2015 ZOSTER Recombinant 03/23/2020,01/18/2020 Social History Tobacco Use Types Packs/Day Years Used Date Smoking Tobacco: Never Smokeless Tobacco: Never Tobacco Cessation:Counseling Given: Not Answered Alcohol Use Standard Drinks/Week Comments Yes 7 (1 standard drink = 0.6 oz pur e alcohol) PHQ-2 Answer Date Recorded PHQ-2 Total Score (If total score is 3 or more points, staff should administer the PHQ-9) 0 04/09/2023 Personal Safety Answer Date Recorded Have you ever been in or are you currently in a harmful physical or emotional relationship or is someone making you feel afraid or unsafe? Denies 01/12/2023 Comments No Sex and Gender Information Value Date Recorded Sex Assigned at Not on file Legal Sex Female 8:36 PM INSIGHTS MANAGER Gender Identity Female 01/22/2024 8:14 PM CDT Sexual Orientation Choose not to disclose 2023 8:14 PM CDT Last Filed Vital Signs Vital Sign Reading Time Taken Comments Blood Pressure 122/74 05/23/2024 11:09 AM INSIGHTS MANAGER Pulse 80 05/23/2024 10:45 AM INSIGHTS MANAGER Temperature 36.4 C (97.6 F) 03/01/2018 2:19 PM CDT Respiratory Rate 16 12/31/2017 11:40 AM CDT Oxygen Saturation 98% 09/20/2023 3:05 PM CDT Inhaled Oxygen Concentration - - Weight 53.5 kg (118 lb) 05/23/2024 10:45 AM INSIGHTS MANAGER Height 170.2 cm (5' 7 ) 05/23/2024 10:45 AM INSIGHTS MANAGER Body Mass Index 18.48 05/23/2024 10:45 AM INSIGHTS MANAGER Plan of Treatment Not on file Procedures Procedure Name Priority Date/Time Associated Diagnosis Comments DEXA AXIAL SKELETON BONE DENSITY 1 OR MORE SITES Schedule Routine, Read Routine (OP Routine) 08/01/2024 2:53 PM INSIGHTS MANAGER Age-related osteoporosis without current pathological fracture SCREENING MAMMOGRAM BILATERAL W HAYES Schedule Routine, Read Routine (OP Routine) 03/03/2024 2:06 PM CDT Screening mammogram, encounter for COLONOSCOPY 12/31/2017 11:09 AM CDT from Last 3 Months or Most Recently Relevant to Health Maintenance Results * Dexa Axial Skeleton Bone Density 1 or 2 Site (08/01/2024 2:53 PM INSIGHTS MANAGER) Anatomical Region Laterality Modality Body N/A Digital Radiogra phy 08/01/2024 3:00 PM INSIGHTS MANAGER Impressions 08/01/2024 4:14 PM INSIGHTS MANAGER 1. The bone mineral density of the lumbar spine is mildly decreased. 2. The bone mineral density of the left femoral neck is mildly decreased. 3. The bone mineral density of the left total hip is mildly decreased. 4. Overall, the above findings are diagnostic of low bone mass (osteopenia) by WHO criteria. 5. Calculation of fracture risk using the FRAX model is not appropriate in certain settings. It was not performed in this patient because the patient met the following condition(s): Interfering medications. General comments regarding interpretation of bone density measurements: A) In children, premenopausal woman and males under age 50 not at increased risk for fractures only Z-scores, not T-scores are used to indicate risk. A Z-score above -2.0 is defined as within the expected range for age and Z-score at or less than -2.0 is below the expected range for age . A Z-score below the expected range for age in a patient with recent fractures and/or chronic corticosteroid treatment is consistent with a diagnosis of osteoporosis. B) In post menopausal women and males over 50, comparison of the measured bone mineral density with the average value in young normal subjects (the T-score ) has been found to be useful in assessing fracture risk. Fracture risk approximately doubles for each 1.0 standard deviation (SD) in individual's hip or spine bone mineral density is below the average value of young normal subjects. The World Health Organization (WHO) has defined T-scores of -1.0 to -2.5 as diagnostic of low bone mass (OSTEOPENIA), and T-scores of -2.5 or lower to be diagnostic of OSTEOPOROSIS, based on the site of lowest bone density. Note that there will be a change in reporting format and reference databases as patients move from the younger population (group A) to the older population (group B) The National Osteoporosis Foundation (www.nof.org) recommends adequate intake of calcium and vitamin D and regular weight-bearing exercise in all patients. They recommend pharmacologic treatment in postmenopausal women and men age 50 and older presenting with any of the followin) Osteoporosis, after appropriate evaluation to exclude secondary causes. 2) A hip or vertebral (clinical or radiographic) fracture, regardless of the bone density. 3) Low bone mass (Osteopenia) and one or more of: other prior fractures, secondary causes associated with high risk of fracture (such as glucocorticoid use or total immobilization), or computed high risk of fracture (10-yr probability of hip fracture >= 3% or a 10-yr probability of any major osteoporosis-related fracture >= 20% based on the [place].-adapted WHO algorithm), available at http://www.shef.ac.uk/FRAX). Dictated by: Aj Lyons M.D. The radiology attending physician has personally reviewed this study, and had reviewed and/or edited this written report and agrees with it. Electronically signed by: Javier Vera M.D. Narrative 08/01/2024 4:14 PM INSIGHTS MANAGER BONE DENSITOMETRY OF THE SPINE AND HIP DATE OF STUDY: 08/01/2024 HISTORY: 74-year-old postmenopausal woman with arthritis undergoing osteoporosis screening. She is being treated with calcium and vitamin D. She also takes ibandronate. Evaluate bone mineral density. Additional risk factors for fracture: none. FINDINGS (SPINE): The bone mineral density of L1-L4 was assessed by dual-energy x-ray absorptiometry. The average bone mineral density within this region is 0.822 gm/sq-cm. This is 0.3 standard deviations above the mean of the average bone mineral density for age- and gender-matched subjects (the Z-score). It is 2.0 standard deviations below the mean peak bone mineral density in young adults (the T-score). FINDINGS (FEMORAL NECK): The bone mineral density of the left femoral neck was assessed by dual-energy x-ray absorptiometry. The average bone mineral density within the femoral neck region is 0.613 gm/sq-cm. This is 0.1 standard deviations below the mean of the average bone mineral density for age- and gender-matched subjects (the Z-score). It is 2.1 standard deviations below the mean peak bone mineral density in young adults (the T-score). FINDINGS (TOTAL HIP): The bone mineral density of the left hip was assessed by dual-energy x-ray absorptiometry. The average bone mineral density within the total hip region is 0.702 gm/sq-cm. This is 0.2 standard deviations below the mean of the average bone mineral density for age- and gender-matched subjects (the Z-score). It is 2.0 standard deviations below the mean peak bone mineral density in young adults (the T-score). SUMMARY OF CURRENT RESULTS: Region BMD T-score Z-score AP Spine (L1-L4) 0.822 -2.0 0.3 Femoral Neck (Left) 0.613 -2.1 -0.1 Total Hip (Left) 0.702 -2.0 -0.2 Procedure Note Javier Vera MD - 08/01/2024 BONE DENSITOMETRY OF THE SPINE AND HIP DATE OF STUDY: 08/01/2024 HISTORY: 74-year-old postmenopausal woman with arthritis undergoing osteoporosis screening. She is being treated with calcium and vitamin D. She also takes ibandronate. Evaluate bone mineral density. Additional risk factors for fracture: none. FINDINGS (SPINE): The bone mineral density of L1-L4 was assessed by dual-energy x-ray absorptiometry. The average bone mineral density within this region is 0.822 gm/sq-cm. This is 0.3 standard deviations above the mean of the average bone mineral density for age- and gender-matched subjects (the Z-score). It is 2.0 standard deviations below the mean peak bone mineral density in young adults (the T-score). FINDINGS (FEMORAL NECK): The bone mineral density of the left femoral neck was assessed by dual-energy x-ray absorptiometry. The average bone mineral density within the femoral neck region is 0.613 gm/sq-cm. This is 0.1 standard deviations below the mean of the average bone mineral density for age- and gender-matched subjects (the Z-score). It is 2.1 standard deviations below the mean peak bone mineral density in young adults (the T-score). FINDINGS (TOTAL HIP): The bone mineral density of the left hip was assessed by dual-energy x-ray absorptiometry. The average bone mineral density within the total hip region is 0.702 gm/sq-cm. This is 0.2 standard deviations below the mean of the average bone mineral density for age- and gender-matched subjects (the Z-score). It is 2.0 standard deviations below the mean peak bone mineral density in young adults (the T-score). SUMMARY OF CURRENT RESULTS: Region BMD T-score Z-score AP Spine (L1-L4) 0.822 -2.0 0.3 Femoral Neck (Left) 0.613 -2.1 -0.1 Total Hip (Left) 0.702 -2.0 -0.2 IMPRESSION: 1. The bone mineral density of the lumbar spine is mildly decreased. 2. The bone mineral density of the left femoral neck is mildly decreased. 3. The bone mineral density of the left total hip is mildly decreased. 4. Overall, the above findings are diagnostic of low bone mass (osteopenia) by WHO criteria. 5. Calculation of fracture risk using the FRAX model is not appropriate in certain settings. It was not performed in this patient because the patient met the following condition(s): Interfering medications. General comments regarding interpretation of bone density measurements: A) In children, premenopausal woman and males under age 50 not at increased risk for fractures only Z-scores, not T-scores are used to indicate risk. A Z-score above -2.0 is defined as within the expected range for age and Z-score at or less than -2.0 is below the expected range for age . A Z-score below the expected range for age in a patient with recent fractures and/or chronic corticosteroid treatment is consistent with a diagnosis of osteoporosis. B) In post menopausal women and males over 50, comparison of the measured bone mineral density with the average value in young normal subjects (the T-score ) has been found to be useful in assessing fracture risk. Fracture risk approximately doubles for each 1.0 standard deviation (SD) in individual's hip or spine bone mineral density is below the average value of young normal subjects. The World Health Organization (WHO) has defined T-scores of -1.0 to -2.5 as diagnostic of low bone mass (OSTEOPENIA), and T-scores of -2.5 or lower to be diagnostic of OSTEOPOROSIS, based on the site of lowest bone density. Note that there will be a change in reporting format and reference databases as patients move from the younger population (group A) to the older population (group B) The National Osteoporosis Foundation (www.nof.org) recommends adequate intake of calcium and vitamin D and regular weight-bearing exercise in all patients. They recommend pharmacologic treatment in postmenopausal women and men age 50 and older presenting with any of the followin) Osteoporosis, after appropriate evaluation to exclude secondary causes. 2) A hip or vertebral (clinical or radiographic) fracture, regardless of the bone density. 3) Low bone mass (Osteopenia) and one or more of: other prior fractures, secondary causes associated with high risk of fracture (such as glucocorticoid use or total immobilization), or computed high risk of fracture (10-yr probability of hip fracture >= 3% or a 10-yr probability of any major osteoporosis-related fracture >= 20% based on the [place].-adapted WHO algorithm), available at http://www.shef.ac.uk/FRAX). Dictated by: Aj Lynos M.D. The radiology attending physician has personally reviewed this study, and had reviewed and/or edited this written report and agrees with it. Electronically signed by: Javier Vera M.D. us Luis Venegas MD IMG DXA PROCEDURES Final Resu lt * Screening Mammogram Bilateral W Hayes (03/03/2024 2:06 PM CDT) Anatomical Region Laterality Modality Breast Bilateral Mammography Narrative 03/03/2024 3:39 PM CDT Mammogram Technique: Bilateral Digital Breast Tomosynthesis, Bilateral C-view 2D Screening mammogram. Views obtained: bilateral craniocaudal and bilateral mediolateral oblique. Computer Aided Detection was performed. Mammogram Findings: The present examination has been compared to prior imaging studies performed at [facility] on 01/21/2021, 03/07/2022 and 03/02/2023. The breasts are extremely dense, which lowers the sensitivity of mammography. There is no suspicious abnormality in either breast. Impression: There is no mammographic evidence of malignancy. Annual screening mammography is recommended. Consider breast MRI for supplemental screening given the patient's extremely dense breast tissue. OVERALL FINAL ASSESSMENT: BI-RADS CATEGORY 1: Negative. Procedure Note Shayla Hurley MD - 03/03/2024 Mammogram Technique: Bilateral Digital Breast Tomosynthesis, Bilateral C-view 2D Screening mammogram. Views obtained: bilateral craniocaudal and bilateral mediolateral oblique. Computer Aided Detection was performed. Mammogram Findings: The present examination has been compared to prior imaging studies performed at [facility] on 01/21/2021, 03/07/2022 and 03/02/2023. The breasts are extremely dense, which lowers the sensitivity of mammography. There is no suspicious abnormality in either breast. Impression: There is no mammographic evidence of malignancy. Annual screening mammography is recommended. Consider breast MRI for supplemental screening given the patient's extremely dense breasttissue. OVERALL FINAL ASSESSMENT: BI-RADS CATEGORY 1: Negative. us Self Screening Mammogram IMG MAMMO PROCEDURES Fi nal Result * COLONOSCOPY (12/31/2017 11:09 AM CDT) Anatomical Region Laterality Modality Other Narrative Procedure Note Diana Rodriguez MD PhD - 12/31/2017 11:09 AM CDT ENDOSCOPY LAB Patient Name: Fide Cueto Procedure Date: 12/31/2017 11:09 AM Date of : 1950 Admit Type: Outpatient Age: 67 Gender: Female Attending MD: Diana Rodriguez MD,PHD Room: [place] [id number] Note Status: Finalized Procedure Date No Time: 12/31/2017 Procedure: Colonoscopy Indications: Screening for colorectal malignant neoplasm, Last colonoscopy: date unknown (unable to locate last colonoscopy report) Providers: Diana Rodriguez MD, PHD Referring MD: Priscilla Hill M.D. Medicines: Monitored Anesthesia Care Complications: No immediate complications. Estimated Blood Loss: Estimated blood loss: none. Procedure: Pre-Anesthesia Assessment: - Immediately prior to administration of medications,the patient was re-assessed for adequacy to receivesedatives. The benefits, risks and alternatives of the procedureand sedation were discussed and informed consent wasobtained. All questions were answered. Please refer to the signed informed consent document in the medical record. Thescope was passed under direct vision. The [id number] introduced through the anus and advanced to the the terminal ileum. The colonoscopy was performed without difficulty. The patient tolerated the procedure well.The quality of the bowel preparation was good. The qualityof the bowel preparation was evaluated using the BBPS([place] Bowel Preparation Scale) with scores of: Right Colon =2, Transverse Colon = 2 and Left Colon = 3. The total BBPS score equals 7. The bowel preparation used was SUPREP. Bowel prep was administered using a split dose. Findings: The perianal and digital rectal examinations were normal. The terminal ileum appeared normal. The entire colon appeared normal on direct and retroflexion views. Impression: - The examined portion of the ileum was normal. - The entire colon is normal on direct and retroflexion views. Recommendation: - Repeat colonoscopy in 10 years for screeningpurposes. Attending Participation: I personally performed the entire procedure. Electronically signed by Diana Rodriguez MD. 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
--- OUTSIDE RECORDS SUMMARY | 2024-09-23 15:18 | XMS_ITS | Encounter Summary ---
Author Organization [facility] Address [address] [facility] [place] [address] Phone Care Team Providers Care Hydraulic Design Engineer Name Role Phone Luis Venegas MD Primary Care Provider [phone] Encounter Details Date Type Department Care Team (Latest Contact Info) Description 04/20/2023 Orders Only [facility] Scanning, Provider Social History Tobacco Use Types Packs/Day Years [...] on file Legal Sex Female 8:36 PM WALL TAPER Gender Identity Female 01/22/2024 8:14 PM CDT Sexual Orientation Choose not to disclose 2023 8:14 PM CDT documented as of this encounter Plan of Treatment Not on file documented as of this encounter Procedures Procedure Name Priority Date/Time Associated Diagnosis Comments CARDIOLOGY DOCUMENT SCAN 04/20/2023 documented in this encounter Results * Cardiology Document Scan (04/20/2023) Anatomical Region Laterality Modality Other us Provider Scanning [facility] CARDIAC SERVICES PROCEDURES Final Result documented in this encounter Visit Diagnoses Not on filedocumented in this encounter Care Teams Hydraulic Design Engineer Relationship Specialty Start Date End Date Luis Venegas MD [address] [address] PCP - General Internal Medicine 11/13/22 documented as of this encounter
--- OUTSIDE RECORDS SUMMARY | 2024-09-23 15:18 | XMS_ITS | Clinical Summary ---
Author Organization [facility] Address [address] [place] [address] Care Team Providers Care Video Machines Mechanic Name Role Phone Luis Venegas MD Primary Care Provider [phone] Allergies Active Allergy Reactions Criticality Noted Date [...] Recent thyroid labs reviewed Age-related osteoporosis wit thomas current pathological fracture 11/15/2023 Assessment & Plan (11/15/2023 10:19 AM CDT): Refill Boniva and check DEXA Paroxysmal atrial fibrillation 09/20/2023 Assessment & Plan (11/15/2023 10:19 AM CDT): Status post ablation so far doing well remains on anticoagulation and amiodarone at this time recent thyroid labs reviewed Screen for colon cancer 12/21/2017 Overview (12/21/2017): Added automatically from request for surgery [id number] Encounters Date Type Department Care Team Description 08/03/2024 Results Follow-Up [facility] [address] [place] [facility] [place] [address] Luis Venegas MD 08/01/2024 2:28 PM ORE WASHER - 08/01/2024 11:59 PM ORE WASHER Hospital Encounter [facility] the [address] [address] Age-related osteoporosis without current pathological fracture Discharge Disposition: Discharge to home or self care from Last 3 Months Immunizations Immunization Administration Dates Next Due COVID-19 [...] 12/09/2015,05/2005 ZOSTER LIVE 12/09/2015 ZOSTER Recombinant 03/23/2020,01/18/2020 Surgical History Surgery Date Site/Laterality Comments OR RPR 1ST FEM HRNA ANY AGE REDUCIBLE Femoral Hernia Repair - (Added by TW Conv) EYE SURGERY CATARACT EXTRACTION Medical History Medical History Date Comments Asymptomatic menopausal state Po stmenopausal status - 49yo (Added by TW Conv) Hypothyroidism Osteoporosis Atrial fibrillation (HCC) Family History Medical History Relation Name Comments Heart failure Father LISA Hypertension Father LISA Cancer Mother CORAZON Relation Name Status Comments Father LISA Mother CORAZON Social History Tobacco Use Types Packs/Day Years [...] on file Legal Sex Female 8:36 PM ORE WASHER Gender Identity Female 01/22/2024 8:14 PM CDT Sexual Orientation Choose not to disclose 2023 8:14 PM CDT Obstetrics History Last Filed Vital Signs Vital Sign Reading Time Taken Comments Blood Pressure 122/74 05/23/2024 11:09 AM ORE WASHER Pulse 80 05/23/2024 10:45 AM ORE WASHER Temperature 36.4 C (97.6 F) 03/01/2018 2:19 PM CDT Respiratory Rate 16 12/31/2017 11:40 AM CDT Oxygen Saturation 98% 09/20/2023 3:05 PM CDT Inhaled Oxygen Concentration - - Weight 53.5 kg (118 lb) 05/23/2024 10:45 AM ORE WASHER Height 170.2 cm (5' 7 ) 05/23/2024 10:45 AM ORE WASHER Body Mass Index 18.48 05/23/2024 10:45 AM ORE WASHER Plan of Treatment Health Maintenance Due Date Last Done Comments Hepatitis C Screening 1950 DTaP/Tdap/Td Vaccine (1 - Tdap) 1961 Hepatitis B Screening 02/27/1968 Covid-19 Vaccine (8 2023-2 5 season) 2024 03/01/2023, 09/16/2022, 04/23/2022, Additional history exists Depression Screening 04/10/2024 04/10/2023 Fall Risk Assessment 04/10/2024 04/10/2023 Well Visit 65+ 04/10/2024 04/10/2023 Influenza Vaccine (Season Ended) 2025 03/01/2023, 2020, 03/23/2019, Additional history exists Breast Cancer Screening-Mammogram 03/03/2025 03/03/2024, 03/02/2023, 03/02/2023, Additional history exists Osteoporosis Screening-Bone Density Scan 08/01/2026 08/01/2024, 06/08/2022 Colon Cancer Screening-Colonoscopy 01/01/2028 12/31/2017 Pneumococcal vaccine 65+ Completed 016, 03/28/2015, 03/28/2006 Colon Cancer Screening-CT Colonography Discontinued 12/31/2017 Colon Cancer Screening-DNA Stool Discontinued 01/01/20 18 Colon Cancer Screening-FIT Discontinued 12/31/2017 Colon Cancer Screening-Sigmoidoscopy Discontinued 12/31/2017 Zoster Vaccine Completed 03/23/2020, 12/27, 12/09/2015 Procedures Procedure Name Priority Date/Time Associated Diagnosis Comments DEXA AXIAL SKELETON BONE DENSITY 1 OR MORE SITES Schedule Routine, Read Routine (OP Routine) 08/01/2024 2:53 PM ORE WASHER Age-related osteoporosis without current pathological fracture SCREENING MAMMOGRAM BILATERAL W HAYES Schedule Routine, Read Routine (OP Routine) 03/03/2024 2:06 PM CDT Screening mammogram, encounter for COLONOSCOPY 12/31/2017 11:09 AM CDT from Last 3 Months or Most Recently Relevant to Health Maintenance Results * Dexa Axial Skeleton Bone Density 1 or 2 Site (08/01/2024 2:53 PM ORE WASHER) Anatomical Region Laterality Modality Body N/A Digital Radiogra phy 08/01/2024 3:00 PM ORE WASHER Impressions 08/01/2024 4:14 PM ORE WASHER 1. The bone mineral density of the [...] Javier Vera M.D. Narrative 08/01/2024 4:14 PM ORE WASHER BONE DENSITOMETRY OF THE SPINE AND HIP [...] it. Electronically signed by: Javier Vera M.D. Luis Venegas MD IMG DXA PROCEDURES Final [...] to prior imaging studies performed at [facility] on 01/21/2021, 03/07/2022 and 03/02/2023. The [...] to prior imaging studies performed at [facility] on 01/21/2021, 03/07/2022 and 03/02/2023. The [...] Female Attending MD: Diana Rodriguez MD,PHD Room: [place] [id number] Note Status: Finalized Procedure Date No Time: [...] Thescope was passed under direct vision. The [id number] introduced through the anus and advanced to the the terminal ileum. The colonoscopy was performed without difficulty. The patient tolerated the procedure well.The quality of the bowel preparation was good. The qualityof the bowel preparation was evaluated using the BBPS(Maxwell Bowel Preparation Scale) with scores of: Right [...] 0 Note Initiated On: 12/31/2017 11:09 AM Diana Rodriguez MD PhD ENDOSCOPY PROCEDURES Johanny l Result from Last 3 Months or Most Recently Relevant to Health Maintenance Insurance [employer] MEDICARE [facility] MEDICARE [facility] Address: [address] [address] [place] [address] [facility] MEDIC[facility] MEDICARE Advance Directives For more information, please contact: [phone] Documents on File Type Date Recorded 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
[2024-09-23 15:44] LABS: Basophils Absolute Auto 0.1 K/mm3 (0.0-0.1); Eosinophils Absolute Auto 0.1 K/mm3 (0-0.3); Eosinophils Percent Auto 1.5 % (0-4.4); Hematocrit 34.3 % (37.0-47.0); Hemoglobin 11.3 g/dL (12.0-15.0); Immature Granulocyte Absolute 0.02 K/mm3 (0.00-0.031); Immature Granulocyte Percent A 0.4 % (0-0.5); Lymphocytes Absolute Auto 0.98 K/mm3 (0.9-3.2); Lymphocytes Percent Auto 20.5 % (18.3-44.2); Mean Corpuscular HGB Conc 32.9 g/dl (32-36); Mean Corpuscular Hemoglobin 32.3 pg (26-34); Mean Platelet Volume 8.8 fl (7.4-10.4); Monocytes Absolute Auto 0.4 K/mm3 (0.1-0.6); Monocytes Percent Auto 8.2 % (2.6-8.5); Neutrophils Absolute Auto 3.3 K/mm3 (1.3-6.7); Neutrophils Percent Auto 68.4 % (45.5-73.1); Platelet Count Result 289 k/mm3 (150-375); Red Cell Distribution Width 12.5 % (11.5-14.5); White Blood Count 4.8 K/mm3 (4.5-10.0)
[2024-09-23 16:03] LABS: Urine Cotinine NEGATIVE
[2024-09-23 16:11] LABS: Hemoglobin A1C 5.4 % (<5.7)
[2024-09-23 16:12] LABS: Albumin Level 4.6 g/dL (3.5-5.1); Anion Gap 9 mmol/L (4-12); Blood Urea Nitrogen 24 mg/dL (7-17); Carbon Dioxide 27 mmol/L (22-30); Chloride 100 mmol/L (98-107); Estimated Glomerular Filt Rate > 60; Glucose 94 mg/dL (65-110); Potassium 3.9 mmol/L (3.4-5.0); Sodium 136 mmol/L (137-145)
== END 2024-09-23 13:54 | disposition home or self-care (01) ==
LOC: ANHSURGERY 14:00
PROVIDERS: PCP Internal Medicine; Visit Provider Orthopaedic Surgery
DX: Z01.818 Encounter for other preprocedural examination (principal); M17.12 Unilateral primary osteoarthritis, left knee
CPT/HCPCS: 80048; 80307; 82040; 83036; 85025; 87081

== ENCOUNTER 2024-10-14 00:17 | Day surgery (SDC) | payer MEDICARE, SELFPAY ==
--- NOTE | 2024-09-23 14:11 | PC.NURSE ---
Addendum entered by Lima Morton RN 09/23/24 15:22: PT TAKES METOPROLOL AT HS. INSTRUCTED TO TAKE NIGHT BEFORE HER USUAL. SHE RELAYS UNDERSTANDING. Original Note: Report to the Outpatient Waiting Room, entrance under the green pavilion located off [facility], at time ___6:00am____ on date __10/14/24 . Planned Procedure Time: __7:30am .? Time changes happen often and if your time is changed the preop area will call you the afternoon before. - You and your visitor will be asked to self-screen and do not enter if you have any COVID symptoms. Please call surgeon if you need to reschedule. - A mask is optional within the hospital at this time. Patients may have clear liquids (water, carbonated beverages, clear teas, apple juice) until 3 hours prior to surgery (4:30AM) with a maximum of 20 ounces. - No food from midnight until time of surgery and no smoking, or chewing tobacco (or any form of nicotine). No chewing gum, candy or mints. Take only the following medications with a SIP of water on the morning of surgery: LEVOTHYROXINE, METOPROLOL DO NOT STOP ANY OF YOUR OTHER PRESCRIPTION MEDICATIONS PRIOR TO SURGERY EXCEPT THE FOLLOWING Medications to discontinue per physician ____HOLD ELIQUIS 2 DAYS PRE-OP - LAST DOSE 10/11/24 HOLD ALL VITAMINS/SUPPLEMENTS 7 DAYS PRE-OP- LAST DOSE 10/07/23 Please no make-up, nail solomon islander, hairspray, perfume, deodorant, or body powder the day of surgery.? No jewelry (including any body piercings) or valuables the day of surgery, leave them at home.? Please take a shower or bath the night before, or the morning of, surgery with an antibacterial soap.? Wear comfortable, loose fitting clothing.? - Jewelry must be removed prior to entering the operating room.? Rings and piercings that are not removed may be cut off. - The hospital will not accept responsibility for valuables.? - Please leave all valuables, including medications, at home the day of surgery. If you are going home after surgery, a licensed tank wagon driver must drive you home.? - NO public transportation without another adult if you receive anesthesia. - We recommend that an adult stay with you for 24 hours following discharge. - We also recommend that you do not drive, make important decision, drink alcoholic beverages, or take any drugs that were not prescribed by your health care provider for at least 24 hours after your discharge time. Follow any additional instructions given to you from your surgeon. Telephone instructions given to ___PATIENT and asked if any additional questions and then verbalized understanding. Patient advised to call surgeon office or pre surgery nurse liaison [phone] if any additional questions.
[2024-09-23 14:39] VITALS: BP 125/67; PULSE 73; RESP 16; TEMP 36.2; O2SAT 99; BMI 19.5
--- NOTE | 2024-10-13 12:45 | P.HP_ITS ---
H&P: HPI History of Present Illness Date/Time: 10/13/24 12:45 Chief Complaint: Left knee DJD Narrative: 74-year-old female who presents today for a left total knee arthroplasty. Patient has been having symptoms in left knee for years. She has been getting cortisone injections fairly regularly, every 3 months for couple years. Last injections were in March of 2024. She feels this point the cortisone inje ctions are not helping with her symptoms. She does have severe medial compartment osteoarthritis in knee. She is unable take anti-inflammatory medication because she is on Eliquis chronically for a flutter. At this point patient is having symptoms fairly regularly every day and she feels she would like to proceed with total knee arthroplasty rather than continue nonsurgical treatment. Review of Systems Review of Systems: All systems reviewed & are unremarkable except as noted in HPI and below PMFSH Past Medical History Medical History Hypertension Surgical History Surgical History H/O prior ablation treatment Family History Family History Father No problems noted. Mother No problems noted. Sibling No problems noted. Social History Social History (Updated 07/30/24 @ 13:49 by Natalie Manning CMA) Smoking status: Never smoker Second hand tobacco smoke exposure: Yes Alcohol intake: current Drinks per week: 7 Alcohol use details: Occasional Substance use: never Substance use type: does not use Current Housing: Decline to Answer Concerned About Future Housing: Decline to Answer Difficulty Paying Gas/Electric Bills: Decline to Answer Difficulty Paying for Meds: Decline to Answer Currently Unemployed: Decline to Answer Education: Decline to Answer Difficulty w/ Childcare or Family Care: Decline to Answer Living arrangements: with family Additional living arrangements comments: [place] 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 Gender identity (if verbalized by the patient): Female Spiritual care concerns: No Meds Home Medications and Allergies Home Medications ?Medication ?Instructions ?Recorded ?Confirmed ?Type apixaban 5 mg tablet (Eliquis) 5 mg PO Q12H 12/26/23 09/23/24 History ibandronate 150 mg tablet 150 mg PO MONTHLY 12/26/23 09/23/24 History levothyroxine 100 mcg tablet 100 mcg PO QAM 12/26/23 09/23/24 History metoprolol succinate 25 mg 25 mg PO HS 07/30/24 09/23/24 History tablet,extended release 24 hr Juice Plus 1 cap PO BID 09/23/24 09/23/24 History acetaminophen 650 mg 1,300 mg PO Q12H PRN pain 09/23/24 09/23/24 History tablet,extended release (8 Hour Pain Reliever) ascorbic acid (vitamin C) 1,000 mg 1 g PO BID 09/23/24 09/23/24 History capsule calcium carbonate 600 mg PO DAILY 09/23/24 09/23/24 History cholecalciferol (vitamin D3) 50 2,000 unit PO BID 09/23/24 09/23/24 History mcg (2,000 unit) capsule ferrous sulfate 325 mg (65 mg 325 mg PO DAILY 09/23/24 09/23/24 History iron) tablet (Feosol) glucosamine HCl 1,500 mg tablet 1,500 mg PO BID 09/23/24 09/23/24 History lactobacillus combination no.4 3 3,000 mmu cells PO DAILY 09/23/24 09/23/24 History billion cell capsule (Probiotic) magnesium oxide 400 mg PO BID 09/23/24 09/23/24 History omega-3 acid ethyl esters 1 cap PO BID 09/23/24 09/23/24 History turmeric 500 mg PO BID 09/23/24 09/23/24 History vitamin E 268 mg (400 unit) capsule 268 mg PO DAILY 09/23/24 09/23/24 History Allergies Allergy/AdvReac Type Severity Reaction Status Date / Time diltiazem AdvReac Intermediate Difficulty Verified 09/23/24 14:18 Breathing Exam Narrative: 74-year-old female very alert pleasant. She is 5 ft 5 117 lb BMI is 19 3. She walks with a mild limp. Range of motion left knee is from 7-135 degrees. There is a moderate effusion. No medial or lateral joint line tenderness to palpation. Moderate degree of medial pseudolaxity to valgus stress with a solid endpoint. She does have a positive Patricia's. Normal sensation left lower extremity. No edema in extremity. 2+ posterior tibial pulse and 1+ dorsalis pedis pulse palpable. Hip range of motion is full without discomfort, negative Stinchfield maneuver. Resp: Auscultation: clear to auscultation bilaterally Cardio: Rate: regular rate Rhythm: regular rhythm Assessment and Plan Assessment and plan (1) Left knee DJD: Qualifiers: Osteoarthritis type: primary Qualified Code(s): M17.12 - Unilateral primary osteoarthritis, left knee Code(s): M17.12 - Unilateral primary osteoarthritis, left knee Status: Acute Assessment and Plan: 74-year-old female who has severe medial compartment osteoarthritis in the left knee with significant symptoms on a daily basis. Again at this point patient feels she would like to proceed with total knee arthroplasty rather than continue nonsurgical treatment. Surgical procedures well as the risks and complications were discussed in detail questions were answered we will proceed. Patient will see her primary care doctor pre-surgical clearance. She has seen her quality control engineering technician and has been cleared without any additional testing. She will stop her Eliquis 48 hours prior to surgery. We will use a lower dose Eliquis for the 1st week and then resume her normal strength Eliquis dosing after that. Patient's nasal swab was negative. Hemoglobin is 11.3 and platelets were 289. Chem panel is all within normal limits creatinine 0.71. Patient will also be on a monitored bed postop.
[2024-10-14] VITALS (14 sets, daily range): BP systolic 111–134; BP diastolic 53–72; PULSE 67–82; RESP 15–18; TEMP 36.3–37.1; O2SAT 97–100; BMI 19.4; BMI 22.6
--- NOTE | ~2024-10-14 | XR_ITS ---
EXAMINATION: [id number] DATE: 10/14/2024 11:24 INDICATION: Postoperative evaluation following left total knee arthroplasty. TECHNIQUE: Anteroposterior and lateral views of the left knee were obtained. COMPARISON: None. FINDINGS: Left total knee arthroplasty without patellar resurfacing appears well seated and in near anatomic al ignment. No fractures identified. Expected postoperative subcutaneous, intramedullary and intra-tres cular gas. IMPRESSION: 1. Left total knee arthroplasty, negative for postoperative purposes. Reviewed, dictated and finalized at location A.
--- OUTSIDE RECORDS SUMMARY | 2024-10-14 00:19 | XMS_ITS | Clinical Summary ---
Author Organization [facility] Address [address] [place] [address] Care Team Providers Care Supervisor Cooler Service Name Role Phone Luis Venegas MD Primary Care Provider [phone] Allergies Active Allergy Reactions Criticality Noted Date [...] Refill Boniva and check DEXA Atrial fibrillation ([facility]) 09/25/2023 Atrial flutter ([facility]) 09/24/2023 Paroxysmal atrial fibrillation ([facility]) 09/20/2023 Overview (12/14/2023): Last Assessment & Plan: Status post ablation so far doing well remains on anticoagulation and amiodarone at this time recent thyroid labs reviewed Osteoporosis 09/05/2022 Arthralgia of left knee 04/23/2022 Hypothyroidism 01/20/2020 Overview (12/14/2023): Last Assessment & Plan: Recent thyroid labs reviewed Screen for colon cancer 12/21/2017 Overview (12/14/2023): Added automatically from request for surgery [id number] Immunizations Immunization Administration Dates Next Due MODERNA COVID-19 BIVALENT (12+), MRNA, LNP-S, PF 09/16/2022,04/23/2022 MODERNA COVID-19 (12+) MRNA, LNP-S, PF, 100 MCG/ 0.5 ML DOSE 03/23/2021,07/09/2020 MODERNA COVID-19 (12+), MRNA , LNP-S, PF, 50 MCG/0.5 ML (SPIKEVAX) 03/01/2023 MODERNA COVID-19 (CLIENT SERVER DEVELOPER KADE DAMON), MRNA, LNP-S, PF, 50 MCG/ [...] from your doctor or pharmacy? Never 09/24/2023 [facility] Utilities Answer Date Recorded In the past 12 months has [facility] [email or web address], [employer], oil, or water [employer] threatened to shut off services in your [...] week 09/24/2023 How often do you attend oriental orthodox or roman catholic serv ices? Patient declined 09/24/2023 Do you belong to any clubs o r organizations such as oriental orthodox groups, unions, fraternal or athletic groups, or [...] medical care, and heating? Patient declined 09/24/2023 [facility] - Occupational Stress Questionnaire Answer Date [...] any time in the past [address] [facility], were you homeless or living in a chcf (including now)? Patient declined 09/24/2023 Comments Unknown Sex and Gender Information Value Date Recorded Sex Assigned at Not on file Legal Sex Female 6:05 PM CDT Gender Identity Not on file Sexual Orientation Lesbian 11/07/2023 2: 50 PM CDT Last Filed Vital Signs Vital Sign Reading Time Taken Comments Blood Pressure 124/72 06/09/2024 2:25 PM NEURO UROLOGIST Pulse 88 06/09/2024 2:25 PM NEURO UROLOGIST Temperature 36.2 C (97.2 F) 11/13/2023 6:46 AM CDT Respiratory Rate 19 11/13/2023 2:00 PM CDT Oxygen Saturation 93% 06/09/2024 2:25 PM NEURO UROLOGIST Inhaled Oxygen Concentration - - Weight 54.3 kg (119 lb 12.8 oz) 06/09/2024 2:25 PM NEURO UROLOGIST Height 170.2 cm (5' 7 ) 06/09/2024 2:25 PM NEURO UROLOGIST Body Mass Index 18.76 06/09/2024 2:25 PM NEURO UROLOGIST Plan of Treatment Upcoming Encounters Date Type Department Care Team (Late st Contact Info) Description 12/08/2024 3:00 PM CDT Office Visit [facility], [facility] [address] [place], [place] [id number] Pebbles Nugent MD [facility]. [facility] [address] [place], [place] [id number] Health Maintenance Due Date Last Done Comments [...] 8:47 PM 09/25/2023 5:27 PM Care Teams Supervisor Cooler Service Relationship Specialty Start Date End Date Luis Veneags MD [address] [address] PCP - General INTERNAL MEDICINE 09/24/23
--- OUTSIDE RECORDS SUMMARY | 2024-10-14 00:19 | XMS_ITS | Data Portability ---
Author Organization [facility] Address [address] [place] [address] Assessment Encounter Date Assessment Date Assessment LastModified [...] in atrial flutter with rapid ventricular response, [id number] score of 2 History of intolerance to [...] Dr. Nugent the EP service over at [facility]. He would like her to go to [...] in atrial flutter with rapid ventricular response, [id number] score of 2 Status post atrial flutter [...] problems. CARDIAC TESTING ECHOCARDIOGRAM 09/26/[address] [facility] which shows the left ventricle is small [...] in atrial flutter with rapid ventricular response, [id number] score of 2 Status post atrial flutter [...] 2024 CARDIAC TESTING ECHOCARDIOGRAM 09/26/[address] [facility] which shows the left ventricle is small [...] cell count 6300, hemoglobin 13.2, platelet count [id number] LABS: 01/09/24. Glucose 107, BUN 20, creatinine [...] in atrial flutter with rapid ventricular response, [id number] score of 2 Status post atrial flutter [...] flutter. CARDIAC TESTING ECHOCARDIOGRAM 09/26/[address] [facility] which shows the left ventricle is small [...] blood pressure response to exercise Not available 07/22/2024 17:51:53 10/08/2024 10/08/2024 Labs completed o n 09/11/2024 Cholesterol 189, Trig 105, HDL 76, LDL 95 Laboratories performed on 07/14/2024 TSH 0.832, free T4 1.6 glucose 124, BUN 23, creatinine 0.88, GFR 69, sodium 139, potassium 4.3, chloride 100, bicarb 26, calcium 9.4, total protein 6.9 albumin 4.5, bilirubin 0.2, alkaline phosphatase 109, AST 25, ALT 18, white blood cell count 6300, hemoglobin 13.2, platelet count [id number] LABS: 01/09/24. Glucose 107, BUN 20, creatinine [...] cardiac evaluation prior to left total knee arthroplasty which was scheduled at [facility] on 10/14/2024, or EKG is normal, she swims for 45 minutes a day without any chest pain or shortness of breath and had a normal stress echocardiogram done on 01/02/2023 with normal LV function she has no cardiac contraindication to the procedure. History of paroxysmal atrial fibrillation with rapid ventricular response, [id number] score of 2 Status post atrial flutter ablation on 09/25/2023 Paroxysmal atrial fibrillation with atrial fibrillation ablation on 11/13/[address] Nugent and was taken off of amiodarone on 06/16/2024 by [facility] consult EP service. Aortic regurgitation, moderate by echocardiogram done on 09/26/2023 but only trace to mild on echocardiogram done on 10/01/2024 Mild pulmonary hypertension by echocardiogram done on 09/26/2023 Moderate to severe tricuspid regurgitation echocardiogram done on 09/26/2023 with moderate tricuspid regurgitation with mild pulmonary hypertension with an RVSP of 44 mm Hg on echocardiogram done on 10/01/2024 Small pericardial effusion by echocardiogram done on 09/26/2023 and resolved on echocardiogram done on 10/01/2024 History of intolerance to rate controlling drugs including diltiazem CD 120 mg daily but is currently controlling the metoprolol succinate 25 mg daily. Hypothyroidism on levothyroxine Plan I recommend she keep doing her regular exercise with her swimming. She has no cardiac contraindication to a left total knee arthroplasty. I just reminded her to stop her Eliquis 48 hours prior to the procedure and then resume it postop when okay with Orthopedic surgery. I asked her to continue on Eliquis 5 mg p.o. b.i.d other than holding it for her surgery and continue on metoprolol succinate 25 mg daily. I will have her return in 6 months' time and obtain a complete metabolic profile and a CBC prior to her follow-up visit. I did ask her since she does have an [employer] watch to monitor telemetry at least once every 48 hours and to call me if she goes in atrial fibrillation or flutter. I asked her to return sooner if she has any cardiac issues or problems. I will plan to repeat another echocardiogram to re-evaluate her aortic regurgitation tricuspid regurgitation and pulmonary hypertension in about a year's time CARDIAC TESTING ECHOCARDIOGRAM 10/01/2024 Normal left ventricular size. Mild concentric left ventricular hypertrophy. There is hyperdynamic left ventricular systolic function. LV ejection fraction is greater than 70%. Left ventricular diastolic function is indeterminate. The average global longitudinal strain rate is normal at -23.7%. Total wall motion score is 1.00. there are no regional wall motion abnormalities. Normal right ventricular size and systolic function. Trace mild aortic valve regurgitation. There is moderate tricuspid regurgitation. The estimated right ventricular systolic pressure is 44 mmHg. Estimated pulmonary artery systolic pressure is consistent with mild pulmonary hypertension. Normal pericardium without evidence of pericardial effusion. The IVC was <2.1 cm and collapsibility >50%. the RA pressure is estimated to be 3 mmHg. ECHOCARDIOGRAM 09/26/[address] [facility] which shows the left ventricle is small [...] blood pressure response to exercise Not available 10/08/2024 17:25:53 Plan of Treatment Reminders Order Date Submit Date Provider Last Modified By Organization Details Last Modified Time Details Appointments ANY 15 2024 03:00P Casey Weinberg MD Not available Not available Not available Lab CMP, serum or plasma 2024 025 [email or web address] [facility], [address], [place], [address], 10/08/2024 17:24:32 CBC w/ auto diff 2024 025 [email or web address] [facility], [address], [place], [address], 10/08/2024 17:24:32 lipid panel, serum 2024 025 [email or web address] [facility], [address], [place], [address], 08/12/2024 07:34:21 CBC 2023 025 [facility] [address], [place], [address], 07/15/2024 07:40:52 CMP, serum or plasma 2023 025 WICHITA [facility], [address], [place], [address], 07/15/2024 07:40:51 TSH + free T4, serum 2023 024 elviaz [facility], [address], [place], [address], 01/29/2024 16:36:40 CBC 2023 024 [facility] [address], [place], [address], 01/10/2024 08:31:24 BMP, serum or plasma 2023 024 [facility], [address] [place] [address], [address], [address], 01/10/2024 08:31:23 TSH, serum, reflex free T4 2023 024 [facility], [address], [place], [address], 01/04/2024 03:05:02 Referral None record ed. Procedures None record ed. Surgeries None record ed. Imaging electr ocardi ogram 2024 025 [facility] In-Office Order, Internal Use Only DO Not Attach Compendium DO Not Attach Compendium, Do Not Delete/merge, [id number] 07/23/2024 11:00:47 US, byron wood am, veronica mendoza c, enrrique te, w/ color flow 2024 025 [facility], [address], [address], [place], [address], 10/08/2024 08:00:17 electr ocardi ogram 2023 024 [facility] In-Office Order, Internal Use Only DO Not Attach Compendium DO Not Attach Compendium, Do Not Delete/merge, [id number] 01/16/2024 12:59:15 Medication Orders Eliqui s 5 mg tablet 2024 025 [email or web address], [place], [address], 10/08/2024 17:24:35 metopr olol succin ate ER 25 mg tablet ,exten ded releas e 24 hr 2024 025 [id number], [address], [place], [id number], 07/22/2024 17:52:23 amioda melodie 200 mg tablet 2023 [facility] [place] [address] [id number], [address], [place], [id number], 01/14/2024 17:30:26 Patient TargetsNo targets recorded. Patient [...] 3.74 uIU/M L 09/23 7:52 PM CDT [facility] Not Available Not Available 07/23/2024 11:03:56 09/24/19 24 09/24/2023 Magne sium [Mass /volu me] in Serum or Plasm a magnesium [mass/volume ] in serum or plasma 2.6 text: 1.8 - 2.4 mg/dL high MAGNE SIUM 2.6 (H) 1.8 - 2.4 MG/DL 09/23 7:52 PM CDT [facility] Not Available Not Available 07/23/2024 [...] - 99 MG/DL 09/23 7:52 PM CDT [facility] Not Available Not Available 07/23/2024 11:03:56 09/24/19 24 09/24/2023 Compr ehens angelita metab olic 2000 panel - Serum or Plasm a urea nitrogen [mass/volume ] in serum or plasma 20 text: 7 - 18 mg/dL high BUN 20 (H) 7 - 18 MG/DL 09/23 7:52 PM CDT [facility] Not Available Not Available 07/23/2024 11:03:56 09/24/19 24 09/24/2023 Compr ehens angelita metab olic 2000 panel - Serum or Plasm a creatinine [mass/volume ] in serum or plasma 0.86 text: 0.55 - 1.02 mg/dL CREAT ININE S/P/B 0.86 0.55 - 1.02 MG/DL 09/23 7:52 PM CDT [facility] Not Available Not Available 07/23/2024 11:03:56 09/24/19 24 09/24/2023 Compr ehens angelita metab olic 1999 panel - Serum or Plasm a sodium [moles/volum e] in serum or plasma 137 text: 136 - 145 mmol/L SODIU M S/P/B 137 136 - 145 MMOL/ L 09/23 7:52 PM CDT [facility] Not Available Not Available 07/23/2024 11:03:56 09/24/19 24 09/24/2023 Compr ehens angelita metab olic 1999 panel - Serum or Plasm a potassium [moles/volum e] in serum or plasma 4.1 text: 3.5 - 5.1 mmol/L POTAS SIUM S/P/B 4.1 3.5 - 5.1 MMOL/ L 09/23 7:52 PM CDT [facility] Not Available Not Available 07/23/2024 11:03:56 09/24/19 24 09/24/2023 Compr ehens angelita metab olic 1999 panel - Serum or Plasm a chloride [moles/volum e] in serum or plasma 107 text: 100 - 108 mmol/L CHLOR MONTY S/P/B 107 100 - 108 MMOL/ L 09/23 7:52 PM CDT [facility] Not Available Not Available 07/23/2024 11:03:56 09/24/19 24 09/24/2023 Compr ehens angelita metab olic 1999 panel - Serum or Plasm a carbon dioxide, total [moles/volum e] in serum or plasma 27.4 text: 21 - 32 mmol/L CO2 27.4 21 - 32 MMOL/ L 09/23 7:52 PM CDT [facility] Not Available Not Available 07/23/2024 11:03:56 09/24/19 24 09/24/2023 Compr ehens angelita metab olic 2000 panel - Serum or Plasm a calcium [mass/volume ] in serum or plasma 9.4 text: 8.5 - 10.1 mg/dL CALCI UM S/P/B 9.4 8.5 - 10.1 MG/DL 09/23 7:52 PM CDT [facility] Not Available Not Available 07/23/2024 11:03:56 09/24/19 24 09/24/2023 Compr ehens angelita metab olic 2000 panel - Serum or Plasm a bilirubin.to khoa [mass/volume ] in serum or plasma 0.7 text: 0.2 - 1.2 mg/dL BILIR UBIN TOTAL S/P/B 0.7 0.2 - 1.2 MG/DL 09/23 7:52 PM CDT [facility] Not Available Not Available 07/23/2024 11:03:56 09/24/19 24 09/24/2023 Compr ehens angelita metab olic 1999 panel - Serum or Plasm a protein [mass/volume ] in serum or plasma 7.9 text: 6.4 - 8.2 g/dL TOTAL PROTE IN S/P/B 7.9 6.4 - 8.2 G/DL 09/23 7:52 PM CDT [facility] Not Available Not Available 07/23/2024 11:03:56 09/24/19 24 09/24/2023 Compr ehens angelita metab olic 2000 panel - Serum or Plasm a albumin [mass/volume ] in serum or plasma 3.9 text: 3.4 - 5.0 g/dL ALBUM IN S/P/B 3.9 3.4 - 5.0 G/DL 09/23 7:52 PM CDT [facility] Not Available Not Available 07/23/2024 11:03:56 09/24/19 24 09/24/2023 Compr ehens angelita metab olic 2000 panel - Serum or Plasm a aspartate aminotransfe rase [enzymatic activity/vol ume] in serum or plasma 51 U/L low: 15U/Lh igh: 37U/L high AST 51 (H) 15 - 37 U/L 09/23 7:52 PM CDT [facility] Not Available Not Available 07/23/2024 11:03:56 09/24/19 24 09/24/2023 Compr ehens angelita metab olic 1999 panel - Serum or Plasm a alanine aminotransfe rase [enzymatic activity/vol ume] in serum or plasma 73 U/L low: 14U/Lh igh: 55U/L high ALT 73 (H) 14 - 55 U/L 09/23 7:52 PM CDT [facility] Not Available Not Available 07/23/2024 11:03:56 09/24/19 24 09/24/2023 Compr ehens angelita metab olic 1999 panel - Serum or Plasm a alkaline phosphatase [enzymatic activity/vol ume] in serum or plasma 159 U/L low: 50U/Lh igh: 136U/L high ALKAL INE PHOSP HATAS E S/P/B 159 (H) 50 - 136 U/L 09/23 7:52 PM CDT [facility] Not Available Not Available 07/23/2024 11:03:56 09/24/19 24 09/24/2023 Compr ehens angelita metab olic 1999 panel - Serum or Plasm a anion gap in serum or plasma 2.6 text: 5 - 15 mmol/L low ANION GAP 2.6 (L) 5 - 15 MMOL/ L 09/23 7:52 PM CDT [facility] Not Available Not Available 07/23/2024 11:03:56 09/24/19 24 09/24/2023 Compr ehens angelita metab olic 1999 panel - Serum or Plasm a urea nitrogen/cre atinine [mass ratio] in serum or plasma 23.3 low: 6high: 26 BUN CREAT ININE RATIO 23.3 6 - 09/23 7:52 PM CDT [facility] Not Available Not Available 07/23/2024 11:03:56 09/24/19 24 09/24/2023 Compr ehens angelita metab olic 2000 panel - Serum or Plasm a albumin/glob ulin [mass ratio] in serum or plasma 1 text: 1.0 - 2.0 ratio A/G RATIO 1.0 1.0 - 2.0 RATIO 09/23 7:52 PM CDT [facility] Not Available Not Available 07/23/2024 11:03:56 09/24/19 24 09/24/2023 Compr ehens angelita metab olic 2000 panel - Serum or Plasm a glomerular filtration rate/1.73 sq M.predicted [volume rate/area] in serum, plasma or blood by creatinine-b ased formula (CKD-epi 2020) 71 text: >90 mL/min /1.73 M2 low GFR ESTIM ATE 71 (L) >90 ML/TN N/1.7 3 M2 09/23 7:52 PM CDT [facility] Not Available Not Available 07/23/2024 [...] - 36.5 SEC 09/23 7:37 PM CDT [facility] Not Available Not Available 07/23/2024 11:03:56 09/24/19 24 09/24/2023 Proth rombi n time (PT) prothrombin time (PT) 16.2 text: 10.2 - 12.9 sec high PROTI ME 16.2 (H) 10.2 - 12.9 SEC 09/23 7:37 PM CDT [facility] Not Available Not Available 07/23/2024 11:03:56 09/24/19 24 09/24/2023 Proth rombi n time (PT) INR in platelet poor plasma by coagulation assay 1.4 INR 1.4 09/23 7:37 PM CDT [facility] Not Available Not Available 07/23/2024 11:03:56 09/24/19 24 09/24/2023 Rickie pressley time (PT) interpretati on and review of laboratory results Abnorm al Not Available Not Available 11:03:56 09/24/19 24 09/24/2023 CBC W Auto Diffe renti al panel - Blood leukocytes [#/volume] in blood by automated count 5.31 text: 4.5 - 11.0 x10'3/ uL WBC 5.31 4.5 - 11.0 x10'3 /uL 09/23 7:22 PM CDT [facility] Not Available Not Available 07/23/2024 11:03:56 09/24/19 24 09/24/2023 CBC W Auto Diffe renti al panel - Blood erythrocytes [#/volume] in blood by automated count 4.46 text: 4.20 - 5.40 x10'6/ uL RBC 4.46 4.20 - 5.40 x10'6 /uL 09/23 7:22 PM CDT [facility] Not Available Not Available 07/23/2024 11:03:56 09/24/19 24 09/24/2023 CBC W Auto Diffe renti al panel - Blood hemoglobin [mass/volume ] in blood 14.2 text: 12.0 - 16.0 g/dL HGB 14.2 12.0 - 16.0 G/DL 09/23 7:22 PM CDT [facility] Not Available Not Available 07/23/2024 11:03:56 09/24/19 24 09/24/2023 CBC W Auto Diffe renti al panel - Blood hematocrit [volume fraction] of blood 43.2 % low: 38%hig h: 48% HCT 43.2 38.0 - 48.0 % 09/23 7:22 PM CDT [facility] Not Available Not Available 07/23/2024 11:03:56 09/24/19 24 09/24/2023 CBC W Auto Diffe renti al panel - Blood MCV [entitic volume] 96.9 text: 81.0 - 99.0 fL MCV 96.9 81.0 - 99.0 FL 09/23 7:22 PM CDT [facility] Not Available Not Available 07/23/2024 11:03:56 09/24/19 24 09/24/2023 CBC W Auto Diffe renti al panel - Blood MCH [entitic mass] 31.8 pg low: 27pghi gh: 31pg high MCH 31.8 (H) 27.0 - 31.0 PG 09/23 7:22 PM CDT [facility] Not Available Not Available 07/23/2024 11:03:56 09/24/19 24 09/24/2023 CBC W Auto Diffe renti al panel - Blood MCHC [mass/volume ] 32.9 text: 32.0 - 36.0 g/dL MCHC 32.9 32.0 - 36.0 G/DL 09/23 7:22 PM CDT [facility] Not Available Not Available 07/23/2024 11:03:56 09/24/19 24 09/24/2023 CBC W Auto Diffe renti al panel - Blood erythrocyte distribution width [entitic volume] by automated count 12.7 % low: 11.5%h igh: 14.5% RDW 12.7 11.5 - 14.5 % 09/23 7:22 PM CDT [facility] Not Available Not Available 07/23/2024 11:03:56 09/24/19 24 09/24/2023 CBC W Auto Diffe renti al panel - Blood platelets [#/volume] in blood 275 text: 130 - 400 x10'3/ uL PLT 275 130 - 400 x10'3 /uL 09/23 7:22 PM CDT [facility] Not Available Not Available 07/23/2024 11:03:56 09/24/19 24 09/24/2023 CBC W Auto Diffe renti al panel - Blood platelet mean volume [entitic volume] in blood 9.4 text: 9.3 - 12.2 fL MPV 9.4 9.3 - 12.2 FL 09/23 7:22 PM CDT [facility] Not Available Not Available 07/23/2024 11:03:56 09/24/19 24 09/24/2023 CBC W Auto Diffe renti al panel - Blood differential cell count method - blood AUTOMA DARLEEN DIFFER ENTIAL DIFFE RENTI AL TYPE AUTOM ATED DIFFE RENTI AL 09/23 7:22 PM CDT [facility] Not Available Not Available 07/23/2024 11:03:56 09/24/19 24 09/24/2023 CBC W Auto Diffe renti al panel - Blood neutrophils/ 100 leukocytes in blood by automated count 72 % NEUTR OPHIL S % 72.0 % 09/23 7:22 PM CDT [facility] Not Available Not Available 07/23/2024 11:03:56 09/24/19 24 09/24/2023 CBC W Auto Diffe renti al panel - Blood lymphocytes/ 100 leukocytes in blood by automated count 16.8 % LYMPH OCYTE S % 16.8 % 09/23 7:22 PM CDT [facility] Not Available Not Available 07/23/2024 11:03:56 09/24/19 24 09/24/2023 CBC W Auto Diffe renti al panel - Blood monocytes/10 0 leukocytes in blood by automated count 9.2 % MONOC YTES % 9.2 % 09/23 7:22 PM CDT [facility] Not Available Not Available 07/23/2024 11:03:56 09/24/19 24 09/24/2023 CBC W Auto Diffe renti al panel - Blood eosinophils/ 100 leukocytes in blood by automated count 0.6 % EOSIN OPHIL S 0.6 % 09/23 7:22 PM CDT [facility] Not Available Not Available 07/23/2024 11:03:56 09/24/19 24 09/24/2023 CBC W Auto Diffe renti al panel - Blood basophils/10 0 leukocytes in blood by automated count 0.8 % BASOP HILS 0.8 % 09/23 7:22 PM CDT [facility] Not Available Not Available 07/23/2024 11:03:56 09/24/19 24 09/24/2023 CBC W Auto Diffe renti al panel - Blood immature granulocytes /100 leukocytes in blood by automated count 0.6 % IMMAT URE GRANS % 0.6 % 09/23 7:22 PM CDT [facility] Not Available Not Available 07/23/2024 11:03:56 09/24/19 24 09/24/2023 CBC W Auto Diffe renti al panel - Blood neutrophils [#/volume] in blood 3.83 text: 1.80 - 7.70 x10'3/ uL ABS. NEUTR OPHIL S 3.83 1.80 - 7.70 x10'3 /uL 09/23 7:22 PM CDT [facility] Not Available Not Available 07/23/2024 11:03:56 09/24/19 24 09/24/2023 CBC W Auto Diffe renti al panel - Blood lymphocytes [#/volume] in blood 0.89 text: 1.00 - 4.80 x10'3/ uL low ABS. LYMPH OCYTE S 0.89 (L) 1.00 - 4.80 x10'3 /uL 09/23 7:22 PM CDT [facility] Not Available Not Available 07/23/2024 11:03:56 09/24/19 24 09/24/2023 CBC W Auto Diffe renti al panel - Blood monocytes [#/volume] in blood 0.49 text: 0.24 - 0.86 x10'3/ uL ABS. MONOC YTES 0.49 0.24 - 0.86 x10'3 /uL 09/23 7:22 PM CDT [facility] Not Available Not Available 07/23/2024 11:03:56 09/24/19 24 09/24/2023 CBC W Auto Diffe renti al panel - Blood eosinophils [#/volume] in blood 0.03 text: 0.04 - 0.36 x10'3/ uL low ABS. EOSIN OPHIL S 0.03 (L) 0.04 - 0.36 x10'3 /uL 09/23 7:22 PM CDT [facility] Not Available Not Available 07/23/2024 11:03:56 09/24/19 24 09/24/2023 CBC W Auto Diffe renti al panel - Blood basophils [#/volume] in blood 0.04 text: 0.01 - 0.08 x10'3/ uL ABS. BASOP HILS 0.04 0.01 - 0.08 x10'3 /uL 09/23 7:22 PM CDT [facility] Not Available Not Available 07/23/2024 11:03:56 09/24/19 24 09/24/2023 CBC W Auto Diffe renti al panel - Blood immature granulocytes [#/volume] in blood 0.03 text: 0.00 - 0.49 x10'3/ uL ABS. IMMAT URE GRANU LOCYT ES 0.03 0.00 - 0.49 x10'3 /uL 09/23 7:22 PM CDT [facility] Not Available Not Available 07/23/2024 [...] - 99 mg/dL 09/24 8:51 PM CDT [facility] Not Available Not Available 07/23/2024 11:03:57 09/25/19 24 09/25/2023 Magne sium [Mass /volu me] in Serum or Plasm a magnesium [mass/volume ] in serum or plasma 2.5 text: 1.8 - 2.4 mg/dL high MAGNE SIUM 2.5 (H) 1.8 - 2.4 MG/DL 09/24 7:46 AM CDT [facility] Not Available Not Available 07/23/2024 [...] 70 - 99 MG/DL 09/24 7:46 AM [facility] Not Available Not Available 07/23/2024 11:03:57 09/25/19 24 09/25/2023 Compr ehens angelita metab olic 2000 panel - Serum or Plasm a urea nitrogen [mass/volume ] in serum or plasma 18 text: 7 - 18 mg/dL BUN 18 7 - 18 MG/DL 09/24 7:46 AM CDT [facility] Not Available Not Available 07/23/2024 11:03:57 09/25/19 24 09/25/2023 Compr ehens angelita metab olic 2000 panel - Serum or Plasm a creatinine [mass/volume ] in serum or plasma 0.86 text: 0.55 - 1.02 mg/dL CREAT ININE S/P/B 0.86 0.55 - 1.02 MG/DL 09/24 7:46 AM CDT [facility] Not Available Not Available 07/23/2024 11:03:57 09/25/19 24 09/25/2023 Compr ehens angelita metab olic 2000 panel - Serum or Plasm a sodium [moles/volum e] in serum or plasma 140 text: 136 - 145 mmol/L SODIU M S/P/B 140 136 - 145 MMOL/ L 09/24 7:46 AM CDT [facility] Not Available Not Available 07/23/2024 11:03:57 09/25/19 24 09/25/2023 Compr ehens angelita metab olic 2000 panel - Serum or Plasm a potassium [moles/volum e] in serum or plasma 3.9 text: 3.5 - 5.1 mmol/L POTAS SIUM S/P/B 3.9 3.5 - 5.1 MMOL/ L 09/24 7:46 AM CDT [facility] Not Available Not Available 07/23/2024 11:03:57 09/25/19 24 09/25/2023 Compr ehens angelita metab olic 2000 panel - Serum or Plasm a chloride [moles/volum e] in serum or plasma 109 text: 100 - 108 mmol/L high CHLOR MONTY S/P/B 109 (H) 100 - 108 MMOL/ L 09/24 7:46 AM CDT [facility] Not Available Not Available 07/23/2024 11:03:57 09/25/19 24 09/25/2023 Compr ehens angelita metab olic 2000 panel - Serum or Plasm a carbon dioxide, total [moles/volum e] in serum or plasma 28.1 text: 21 - 32 mmol/L CO2 28.1 21 - 32 MMOL/ L 09/24 7:46 AM CDT [facility] Not Available Not Available 07/23/2024 11:03:57 09/25/19 24 09/25/2023 Compr ehens angelita metab olic 2000 panel - Serum or Plasm a calcium [mass/volume ] in serum or plasma 9.1 text: 8.5 - 10.1 mg/dL CALCI UM S/P/B 9.1 8.5 - 10.1 MG/DL 09/24 7:46 AM CDT [facility] Not Available Not Available 07/23/2024 11:03:57 09/25/19 24 09/25/2023 Compr ehens angelita metab olic 2000 panel - Serum or Plasm a bilirubin.to khoa [mass/volume ] in serum or plasma 0.7 text: 0.2 - 1.2 mg/dL BILIR UBIN TOTAL S/P/B 0.7 0.2 - 1.2 MG/DL 09/24 7:46 AM CDT [facility] Not Available Not Available 07/23/2024 11:03:57 09/25/19 24 09/25/2023 Compr ehens angelita metab olic 2000 panel - Serum or Plasm a protein [mass/volume ] in serum or plasma 7.2 text: 6.4 - 8.2 g/dL TOTAL PROTE IN S/P/B 7.2 6.4 - 8.2 G/DL 09/24 7:46 AM CDT [facility] [facility] Not Available Not Available 07/23/2024 11:03:57 09/25/19 24 09/25/2023 Compr ehens angelita metab olic 2000 panel - Serum or Plasm a albumin [mass/volume ] in serum or plasma 3.6 text: 3.4 - 5.0 g/dL ALBUM IN S/P/B 3.6 3.4 - 5.0 G/DL 09/24 7:46 AM CDT [facility] Not Available Not Available 07/23/2024 11:03:57 09/25/19 24 09/25/2023 Compr ehens angelita metab olic 2000 panel - Serum or Plasm a aspartate aminotransfe rase [enzymatic activity/vol ume] in serum or plasma 42 U/L low: 15U/Lh igh: 37U/L high AST 42 (H) 15 - 37 U/L 09/24 7:46 AM CDT [facility] Not Available Not Available 07/23/2024 11:03:57 09/25/19 24 09/25/2023 Compr ehens angelita metab olic 2000 panel - Serum or Plasm a alanine aminotransfe rase [enzymatic activity/vol ume] in serum or plasma 62 U/L low: 14U/Lh igh: 55U/L high ALT 62 (H) 14 - 55 U/L 09/24 7:46 AM CDT [facility] Not Available Not Available 07/23/2024 11:03:57 09/25/19 24 09/25/2023 Compr ehens angelita metab olic 2000 panel - Serum or Plasm a alkaline phosphatase [enzymatic activity/vol ume] in serum or plasma 143 U/L low: 50U/Lh igh: 136U/L high ALKAL INE PHOSP HATAS E S/P/B 143 (H) 50 - 136 U/L 09/24 7:46 AM CDT [facility] Not Available Not Available 07/23/2024 11:03:57 09/25/19 24 09/25/2023 Compr ehens angelita metab olic 2000 panel - Serum or Plasm a anion gap in serum or plasma 2.9 text: 5 - 15 mmol/L low ANION GAP 2.9 (L) 5 - 15 MMOL/ L 09/24 7:46 AM CDT [facility] Not Available Not Available 07/23/2024 11:03:57 09/25/19 24 09/25/2023 Compr ehens angelita metab olic 2000 panel - Serum or Plasm a urea nitrogen/cre atinine [mass ratio] in serum or plasma 21.1 low: 6high: 26 BUN CREAT ININE RATIO 21.1 6 - 26 09/24 7:46 AM CDT [facility] Not Available Not Available 07/23/2024 11:03:57 09/25/19 24 09/25/2023 Compr ehens angelita metab olic 2000 panel - Serum or Plasm a albumin/glob ulin [mass ratio] in serum or plasma 1 text: 1.0 - 2.0 ratio A/G RATIO 1.0 1.0 - 2.0 RATIO 09/24 7:46 AM CDT [facility] Not Available Not Available 07/23/2024 11:03:57 09/25/19 24 09/25/2023 Compr ehens angelita metab olic 2000 panel - Serum or Plasm a glomerular filtration rate/1.73 sq M.predicted [volume rate/area] in serum, plasma or blood by creatinine-b ased formula (CKD-epi 2020) 71 text: >90 mL/min /1.73 M2 low GFR ESTIM ATE 71 (L) >90 ML/TN N/1.7 3 M2 09/24 7:46 AM CDT [facility] Not Available Not Available 07/23/2024 [...] 11.0 x10'3 /uL 09/24 7:23 AM CDT [facility] Not Available Not Available 07/23/2024 11:03:56 09/25/19 24 09/25/2023 CBC W Auto Diffe renti al panel - Blood erythrocytes [#/volume] in blood by automated count 4.35 text: 4.20 - 5.40 x10'6/ uL RBC 4.35 4.20 - 5.40 x10'6 /uL 09/24 7:23 AM CDT [facility] Not Available Not Available 07/23/2024 11:03:56 09/25/19 24 09/25/2023 CBC W Auto Diffe renti al panel - Blood hemoglobin [mass/volume ] in blood 14 text: 12.0 - 16.0 g/dL HGB 14.0 12.0 - 16.0 G/DL 09/24 7:23 AM CDT [facility] Not Available Not Available 07/23/2024 11:03:56 09/25/19 24 09/25/2023 CBC W Auto Diffe renti al panel - Blood hematocrit [volume fraction] of blood 42.6 % low: 38%hig h: 48% HCT 42.6 38.0 - 48.0 % 09/24 7:23 AM CDT [facility] Not Available Not Available 07/23/2024 11:03:56 09/25/19 24 09/25/2023 CBC W Auto Diffe renti al panel - Blood MCV [entitic volume] 97.9 text: 81.0 - 99.0 fL MCV 97.9 81.0 - 99.0 FL 09/24 7:23 AM CDT [facility] Not Available Not Available 07/23/2024 11:03:56 09/25/19 24 09/25/2023 CBC W Auto Diffe renti al panel - Blood MCH [entitic mass] 32.2 pg low: 27pghi gh: 31pg high MCH 32.2 (H) 27.0 - 31.0 PG 09/24 7:23 AM CDT [facility] Not Available Not Available 07/23/2024 11:03:56 09/25/19 24 09/25/2023 CBC W Auto Diffe renti al panel - Blood MCHC [mass/volume ] 32.9 text: 32.0 - 36.0 g/dL MCHC 32.9 32.0 - 36.0 G/DL 09/24 7:23 AM CDT [facility] Not Available Not Available 07/23/2024 11:03:56 09/25/19 24 09/25/2023 CBC W Auto Diffe renti al panel - Blood erythrocyte distribution width [entitic volume] by automated count 13 % low: 11.5%h igh: 14.5% RDW 13.0 11.5 - 14.5 % 09/24 7:23 AM CDT [facility] Not Available Not Available 07/23/2024 11:03:56 09/25/19 24 09/25/2023 CBC W Auto Diffe renti al panel - Blood platelets [#/volume] in blood 272 text: 130 - 400 x10'3/ uL PLT 272 130 - 400 x10'3 /uL 09/24 7:23 AM CDT [facility] Not Available Not Available 07/23/2024 11:03:56 09/25/19 24 09/25/2023 CBC W Auto Diffe renti al panel - Blood platelet mean volume [entitic volume] in blood 9.4 text: 9.3 - 12.2 fL MPV 9.4 9.3 - 12.2 FL 09/24 7:23 AM CDT [facility] Not Available Not Available 07/23/2024 11:03:56 09/25/19 24 09/25/2023 CBC W Auto Diffe renti al panel - Blood differential cell count method - blood AUTOMA DARLEEN DIFFER ENTIAL DIFFE RENTI AL TYPE AUTOM ATED DIFFE RENTI AL 09/24 7:23 AM CDT [facility] Not Available Not Available 07/23/2024 11:03:56 09/25/19 24 09/25/2023 CBC W Auto Diffe renti al panel - Blood neutrophils/ 100 leukocytes in blood by automated count 69.3 % NEUTR OPHIL S % 69.3 % 09/24 7:23 AM CDT [facility] Not Available Not Available 07/23/2024 11:03:56 09/25/19 24 09/25/2023 CBC W Auto Diffe renti al panel - Blood lymphocytes/ 100 leukocytes in blood by automated count 18 % LYMPH OCYTE S % 18.0 % 09/24 7:23 AM CDT [facility] Not Available Not Available 07/23/2024 11:03:56 09/25/19 24 09/25/2023 CBC W Auto Diffe renti al panel - Blood monocytes/10 0 leukocytes in blood by automated count 10.6 % MONOC YTES % 10.6 % 09/24 7:23 AM CDT [facility] Not Available Not Available 07/23/2024 11:03:56 09/25/19 24 09/25/2023 CBC W Auto Diffe renti al panel - Blood eosinophils/ 100 leukocytes in blood by automated count 0.8 % EOSIN OPHIL S 0.8 % 09/24 7:23 AM CDT [facility] Not Available Not Available 07/23/2024 11:03:56 09/25/19 24 09/25/2023 CBC W Auto Diffe renti al panel - Blood basophils/10 0 leukocytes in blood by automated count 1.1 % BASOP HILS 1.1 % 09/24 7:23 AM CDT [facility] Not Available Not Available 07/23/2024 11:03:56 09/25/19 24 09/25/2023 CBC W Auto Diffe renti al panel - Blood immature granulocytes /100 leukocytes in blood by automated count 0.2 % IMMAT URE GRANS % 0.2 % 09/24 7:23 AM CDT [facility] Not Available Not Available 07/23/2024 11:03:56 09/25/19 24 09/25/2023 CBC W Auto Diffe renti al panel - Blood neutrophils [#/volume] in blood 3.27 text: 1.80 - 7.70 x10'3/ uL ABS. NEUTR OPHIL S 3.27 1.80 - 7.70 x10'3 /uL 09/24 7:23 AM CDT [facility] Not Available Not Available 07/23/2024 11:03:56 09/25/19 24 09/25/2023 CBC W Auto Diffe renti al panel - Blood lymphocytes [#/volume] in blood 0.85 text: 1.00 - 4.80 x10'3/ uL low ABS. LYMPH OCYTE S 0.85 (L) 1.00 - 4.80 x10'3 /uL 09/24 7:23 AM CDT [facility] Not Available Not Available 07/23/2024 11:03:56 09/25/19 24 09/25/2023 CBC W Auto Diffe renti al panel - Blood monocytes [#/volume] in blood 0.5 text: 0.24 - 0.86 x10'3/ uL ABS. MONOC YTES 0.50 0.24 - 0.86 x10'3 /uL 09/24 7:23 AM CDT [facility] Not Available Not Available 07/23/2024 11:03:56 09/25/19 24 09/25/2023 CBC W Auto Diffe renti al panel - Blood eosinophils [#/volume] in blood 0.04 text: 0.04 - 0.36 x10'3/ uL ABS. EOSIN OPHIL S 0.04 0.04 - 0.36 x10'3 /uL 09/24 7:23 AM CDT [facility] Not Available Not Available 07/23/2024 11:03:56 09/25/19 24 09/25/2023 CBC W Auto Diffe renti al panel - Blood basophils [#/volume] in blood 0.05 text: 0.01 - 0.08 x10'3/ uL ABS. BASOP HILS 0.05 0.01 - 0.08 x10'3 /uL 09/24 7:23 AM CDT [facility] Not Available Not Available 07/23/2024 11:03:56 09/25/19 24 09/25/2023 CBC W Auto Diffe renti al panel - Blood immature granulocytes [#/volume] in blood 0.01 text: 0.00 - 0.49 x10'3/ uL ABS. IMMAT URE GRANU LOCYT ES 0.01 0.00 - 0.49 x10'3 /uL 09/24 7:23 AM CDT [facility] Not Available Not Available 07/23/2024 [...] 70 - 99 mg/dL 09/25 6:34 AM CDT [facility] Not Available Not Available 07/23/2024 11:03:57 11/13/19 24 11/13/2023 Activ ated clott ing time (ACT) of Blood by Coagu latio n assay activated clotting time (act) of blood by coagulation assay 253 text: 74 - 125 sec high ACTIV ATED CLOTT ING TIME (ACT) 253 (H) 74 - 125 SEC 11/12 9:36 AM CDT [facility] Not Available Not Available 07/23/2024 11:03:50 11/13/19 24 11/13/2023 Activ ated clott ing time (ACT) of Blood by Coagu latio n assay tech code [id number] TECH CODE 603,3 41 11/12 9:36 AM CDT [facility] Not Available Not Available 07/23/2024 11:03:50 11/13/19 24 11/13/2023 Activ ated clott ing time (ACT) of Blood by Coagu latio n assay interpretati on and review of laboratory results Abnorm al Not Available Not Available 11:03:50 11/13/19 24 11/13/2023 Gas panel - Arter ial blood service comment [id number] TECH CODE 603,3 41 11/12 9:32 AM CDT [facility] Not Available Not Available 07/23/2024 11:03:50 11/13/19 24 11/13/2023 Gas panel - Arter ial blood pH of blood 7.44 low: 7.35hi gh: 7.45 PH ARTER IAL 7.44 7.35 - 7.45 11/12 9:32 AM CDT [facility] Not Available Not Available 07/23/2024 11:03:50 11/13/19 24 11/13/2023 Gas panel - Arter ial blood carbon dioxide [partial pressure] in blood 35.3 text: 35.0 - 45.0 mm hg PCO2 35.3 35.0 - 45.0 MM HG 11/12 9:32 AM CDT [facility] Not Available Not Available 07/23/2024 11:03:50 11/13/19 24 11/13/2023 Gas panel - Arter ial blood oxygen [partial pressure] in blood 338 text: 80.0 - 100.0 mm hg high PO2 338 (H) 80.0 - 100.0 MM HG 11/12 9:32 AM T [facility] Not Available Not Available 07/23/2024 11:03:50 11/13/19 24 11/13/2023 Gas panel - Arter ial blood base excess in arterial blood by calculation 0 text: mEq/L BE/BA SE EXCES S 0.0 MEQ/L 11/12 9:32 AM CDT [facility] Not Available Not Available 07/23/2024 11:03:50 11/13/19 24 11/13/2023 Gas panel - Arter ial blood bicarbonate [moles/volum e] in arterial blood 24.1 text: 22.0 - 26.0 mEq/L BICAR B ARTER IAL 24.1 22.0 - 26.0 MEQ/L 11/12 9:32 AM CDT [facility] Not Available Not Available 07/23/2024 11:03:50 11/13/19 24 11/13/2023 Gas panel - Arter ial blood carbon dioxide, total [moles/volum e] in arterial blood 25 text: mEq/L TOTAL CO2 CAPIL SNEHAL 25 MEQ/L 11/12 9:32 AM CDT [facility] Not Available Not Available 07/23/2024 11:03:50 11/13/19 24 11/13/2023 Gas panel - Arter ial blood oxygen saturation in arterial blood 100 % low: 90%hig h: 100% O2 Satur ation 100.0 90.0 - 100.0 % 11/12 9:32 AM T [facility] Not Available Not Available 07/23/2024 11:03:50 11/13/19 24 11/13/2023 Gas panel - Arter ial blood sodium [moles/volum e] in arterial blood 142 text: 135.0 - 145.0 mmol/L SODIU M BLOOD GAS 142 135.0 - 145.0 MMOL/ L 11/12 9:32 AM T [facility] Not Available Not Available 07/23/2024 11:03:50 11/13/19 24 11/13/2023 Gas panel - Arter ial blood potassium [moles/volum e] in arterial blood 4.1 text: 3.5 - 4.5 mmol/L POTAS SIUM BLOOD GAS 4.1 3.5 - 4.5 MMOL/ L 11/12 9:32 AM T [facility] Not Available Not Available 07/23/2024 11:03:50 11/13/19 24 11/13/2023 Gas panel - Arter ial blood calcium.ioni zed [moles/volum e] in blood 1.2 text: 1.1 - 1.3 mmol/L CALCI UM BLOOD GAS 1.2 1.1 - 1.3 MMOL/ L 11/12 9:32 AM CDT [facility] Not Available Not Available 07/23/2024 11:03:50 11/13/19 24 11/13/2023 Gas panel - Arter ial blood glucose [mass/volume ] in arterial blood 95 text: 70 - 110 mg/dL GLUCO SE POC 95 70 - 110 MG/DL 11/12 9:32 AM CDT [facility] Not Available Not Available 07/23/2024 11:03:50 11/13/19 24 11/13/2023 Gas panel - Arter ial blood hematocrit [volume fraction] of blood 36 % low: 38%hig h: 48% low HEMAT OCRIT BLOOD GAS 36.0 (L) 38.0 - 48.0 % 11/12 9:32 AM CDT [facility] Not Available Not Available 07/23/2024 11:03:50 11/13/19 24 11/13/2023 Gas panel - Arter ial blood hemoglobin [mass/volume ] in blood 12.2 text: 12.0 - 16.0 g/dL HEMOG LOBIN BLOOD GAS 12.2 12.0 - 16.0 G/DL 11/12 9:32 AM CDT [facility] Not Available Not Available 07/23/2024 11:03:50 11/13/19 24 11/13/2023 Gas panel - Arter ial blood interpretati on and review of laboratory results Abnorm al Not Available Not Available 11:03:50 11/13/19 24 11/13/2023 Gas panel - Arter ial blood service comment [id number] TECH CODE 603,3 41 11/12 9:15 AM CDT [facility] Not Available Not Available 07/23/2024 11:03:50 11/13/19 24 11/13/2023 Gas panel - Arter ial blood pH of blood 7.43 low: 7.35hi gh: 7.45 PH ARTER IAL 7.43 7.35 - 7.45 11/12 9:15 AM CDT [facility] Not Available Not Available 07/23/2024 11:03:50 11/13/19 24 11/13/2023 Gas panel - Arter ial blood carbon dioxide [partial pressure] in blood 37.3 text: 35.0 - 45.0 mm hg PCO2 37.3 35.0 - 45.0 MM HG 11/12 9:15 AM T [facility] Not Available Not Available 07/23/2024 11:03:50 11/13/19 24 11/13/2023 Gas panel - Arter ial blood oxygen [partial pressure] in blood 327 text: 80.0 - 100.0 mm hg high PO2 327 (H) 80.0 - 100.0 MM HG 11/12 9:15 AM T [facility] Not Available Not Available 07/23/2024 11:03:50 11/13/19 24 11/13/2023 Gas panel - Arter ial blood base excess in arterial blood by calculation 0 text: mEq/L BE/BA SE EXCES S 0.0 MEQ/L 11/12 9:15 AM T [facility] Not Available Not Available 07/23/2024 11:03:50 11/13/19 24 11/13/2023 Gas panel - Arter ial blood bicarbonate [moles/volum e] in arterial blood 24.7 text: 22.0 - 26.0 mEq/L BICAR B ARTER IAL 24.7 22.0 - 26.0 MEQ/L 11/12 9:15 AM T [facility] Not Available Not Available 07/23/2024 11:03:50 11/13/19 24 11/13/2023 Gas panel - Arter ial blood carbon dioxide, total [moles/volum e] in arterial blood 26 text: mEq/L TOTAL CO2 CAPIL SNEHAL 26 MEQ/L 11/12 9:15 AM T [facility] Not Available Not Available 07/23/2024 11:03:50 11/13/19 24 11/13/2023 Gas panel - Arter ial blood oxygen saturation in arterial blood 100 % low: 90%hig h: 100% O2 Satur ation 100.0 90.0 - 100.0 % 11/12 9:15 AM T [facility] Not Available Not Available 07/23/2024 11:03:50 11/13/19 24 11/13/2023 Gas panel - Arter ial blood sodium [moles/volum e] in arterial blood 141 text: 135.0 - 145.0 mmol/L SODIU M BLOOD GAS 141 135.0 - 145.0 MMOL/ L 11/12 9:15 AM T [facility] Not Available Not Available 07/23/2024 11:03:50 11/13/19 24 11/13/2023 Gas panel - Arter ial blood potassium [moles/volum e] in arterial blood 4 text: 3.5 - 4.5 mmol/L POTAS SIUM BLOOD GAS 4.0 3.5 - 4.5 MMOL/ L 11/12 9:15 AM T [facility] Not Available Not Available 07/23/2024 11:03:50 11/13/19 24 11/13/2023 Gas panel - Arter ial blood calcium.ioni zed [moles/volum e] in blood 1.1 text: 1.1 - 1.3 mmol/L CALCI UM BLOOD GAS 1.1 1.1 - 1.3 MMOL/ L 11/12 9:15 AM T [facility] Not Available Not Available 07/23/2024 11:03:50 11/13/19 24 11/13/2023 Gas panel - Arter ial blood glucose [mass/volume ] in arterial blood 96 text: 70 - 110 mg/dL GLUCO SE POC 96 70 - 110 MG/DL 11/12 9:15 AM T [facility] Not Available Not Available 07/23/2024 11:03:50 11/13/19 24 11/13/2023 Gas panel - Arter ial blood hematocrit [volume fraction] of blood 36 % low: 38%hig h: 48% low HEMAT OCRIT BLOOD GAS 36.0 (L) 38.0 - 48.0 % 11/12 9:15 AM CDT [facility] Not Available Not Available 07/23/2024 11:03:50 11/13/19 24 11/13/2023 Gas panel - Arter ial blood hemoglobin [mass/volume ] in blood 12.2 text: 12.0 - 16.0 g/dL HEMOG LOBIN BLOOD GAS 12.2 12.0 - 16.0 G/DL 11/12 9:15 AM CDT [facility] Not Available Not Available 07/23/2024 [...] 74 - 125 SEC 11/12 9:18 AM T [facility] Not Available Not Available 07/23/2024 11:03:50 11/13/19 24 11/13/2023 Activ ated clott ing time (ACT) of Blood by Coagu latio n assay tech code [id number] TECH CODE 603,3 41 11/12 9:18 AM T [facility] Not Available Not Available 07/23/2024 [...] A POSIT ANGELITA 11/12 7:33 AM CDT [facility] Not Available Not Available 07/23/2024 11:03:52 11/13/19 24 11/13/2023 Blood type and Indir ect antib adam scree n panel - Blood blood group antibody screen [presence] in serum or plasma NEGATI VE ANTIB ADAM SCREE N NEGAT ANGELITA 11/12 7:33 AM CDT [facility] Not Available Not Available 07/23/2024 11:03:52 11/13/19 24 11/13/2023 Blood type and Indir ect antib adam scree n panel - Blood specimen expiration date of blood 2023,2 359 SAMPL E EXPIR ATION 11/15 ,2359 11/12 7:33 AM CDT [facility] Not Available Not Available 07/23/2024 11:03:52 11/13/19 24 11/13/2023 Proth rombi n time (PT) prothrombin time (PT) 13.1 text: 10.2 - 12.9 sec high PROTI ME 13.1 (H) 10.2 - 12.9 SEC 11/12 7:12 AM CDT [facility] Not Available Not Available 07/23/2024 11:03:52 11/13/19 24 11/13/2023 Proth rombi n time (PT) INR in platelet poor plasma by coagulation assay 1.1 INR 1.1 11/12 7:12 AM CDT [facility] Not Available Not Available 07/23/2024 [...] 11.0 x10'3 /uL 11/12 6:54 AM CDT [facility] Not Available Not Available 07/23/2024 11:03:52 11/13/19 24 11/13/2023 CBC W Auto Diffe renti al panel - Blood erythrocytes [#/volume] in blood by automated count 4.4 text: 4.20 - 5.40 x10'6/ uL RBC 4.40 4.20 - 5.40 x10'6 /uL 11/12 6:54 AM CDT [facility] Not Available Not Available 07/23/2024 11:03:52 11/13/19 24 11/13/2023 CBC W Auto Diffe renti al panel - Blood hemoglobin [mass/volume ] in blood 14 text: 12.0 - 16.0 g/dL HGB 14.0 12.0 - 16.0 G/DL 11/12 6:54 AM CDT [facility] Not Available Not Available 07/23/2024 11:03:52 11/13/19 24 11/13/2023 CBC W Auto Diffe renti al panel - Blood hematocrit [volume fraction] of blood 43 % low: 38%hig h: 48% HCT 43.0 38.0 - 48.0 % 11/12 6:54 AM CDT [facility] Not Available Not Available 07/23/2024 11:03:52 11/13/19 24 11/13/2023 CBC W Auto Diffe renti al panel - Blood MCV [entitic volume] 97.7 text: 81.0 - 99.0 fL MCV 97.7 81.0 - 99.0 FL 11/12 6:54 AM CDT [facility] Not Available Not Available 07/23/2024 11:03:52 11/13/19 24 11/13/2023 CBC W Auto Diffe renti al panel - Blood MCH [entitic mass] 31.8 pg low: 27pghi gh: 31pg high MCH 31.8 (H) 27.0 - 31.0 PG 11/12 6:54 AM CDT [facility] Not Available Not Available 07/23/2024 11:03:52 11/13/19 24 11/13/2023 CBC W Auto Diffe renti al panel - Blood MCHC [mass/volume ] 32.6 text: 32.0 - 36.0 g/dL MCHC 32.6 32.0 - 36.0 G/DL 11/12 6:54 AM CDT [facility] Not Available Not Available 07/23/2024 11:03:52 11/13/19 24 11/13/2023 CBC W Auto Diffe renti al panel - Blood erythrocyte distribution width [entitic volume] by automated count 13.1 % low: 11.5%h igh: 14.5% RDW 13.1 11.5 - 14.5 % 11/12 6:54 AM CDT [facility] Not Available Not Available 07/23/2024 11:03:52 11/13/19 24 11/13/2023 CBC W Auto Diffe renti al panel - Blood platelets [#/volume] in blood 259 text: 130 - 400 x10'3/ uL PLT 259 130 - 400 x10'3 /uL 11/12 6:54 AM CDT [facility] Not Available Not Available 07/23/2024 11:03:52 11/13/19 24 11/13/2023 CBC W Auto Diffe renti al panel - Blood platelet mean volume [entitic volume] in blood 9.3 text: 9.3 - 12.2 fL MPV 9.3 9.3 - 12.2 FL 11/12 6:54 AM CDT [facility] Not Available Not Available 07/23/2024 11:03:52 11/13/19 24 11/13/2023 CBC W Auto Diffe renti al panel - Blood differential cell count method - blood AUTOMA DARLEEN DIFFER ENTIAL DIFFE RENTI AL TYPE AUTOM ATED DIFFE RENTI AL 11/12 6:54 AM CDT [facility] Not Available Not Available 07/23/2024 11:03:52 11/13/19 24 11/13/2023 CBC W Auto Diffe renti al panel - Blood neutrophils/ 100 leukocytes in blood by automated count 55.3 % NEUTR OPHIL S % 55.3 % 11/12 6:54 AM CDT [facility] Not Available Not Available 07/23/2024 11:03:52 11/13/19 24 11/13/2023 CBC W Auto Diffe renti al panel - Blood lymphocytes/ 100 leukocytes in blood by automated count 29.5 % LYMPH OCYTE S % 29.5 % 11/12 6:54 AM CDT [facility] Not Available Not Available 07/23/2024 11:03:52 11/13/19 24 11/13/2023 CBC W Auto Diffe renti al panel - Blood monocytes/10 0 leukocytes in blood by automated count 11.4 % MONOC YTES % 11.4 % 11/12 6:54 AM CDT [facility] Not Available Not Available 07/23/2024 11:03:52 11/13/19 24 11/13/2023 CBC W Auto Diffe renti al panel - Blood eosinophils/ 100 leukocytes in blood by automated count 1.9 % EOSIN OPHIL S 1.9 % 11/12 6:54 AM CDT [facility] Not Available Not Available 07/23/2024 11:03:52 11/13/19 24 11/13/2023 CBC W Auto Diffe renti al panel - Blood basophils/10 0 leukocytes in blood by automated count 1.6 % BASOP HILS 1.6 % 11/12 6:54 AM CDT [facility] Not Available Not Available 07/23/2024 11:03:52 11/13/19 24 11/13/2023 CBC W Auto Diffe renti al panel - Blood immature granulocytes /100 leukocytes in blood by automated count 0.3 % IMMAT URE GRANS % 0.3 % 11/12 6:54 AM CDT [facility] Not Available Not Available 07/23/2024 11:03:52 11/13/19 24 11/13/2023 CBC W Auto Diffe renti al panel - Blood neutrophils [#/volume] in blood 1.7 text: 1.80 - 7.70 x10'3/ uL low ABS. NEUTR OPHIL S 1.70 (L) 1.80 - 7.70 x10'3 /uL 11/12 6:54 AM CDT [facility] Not Available Not Available 07/23/2024 11:03:52 11/13/19 24 11/13/2023 CBC W Auto Diffe renti al panel - Blood lymphocytes [#/volume] in blood 0.91 text: 1.00 - 4.80 x10'3/ uL low ABS. LYMPH OCYTE S 0.91 (L) 1.00 - 4.80 x10'3 /uL 11/12 6:54 AM CDT [facility] Not Available Not Available 07/23/2024 11:03:52 11/13/19 24 11/13/2023 CBC W Auto Diffe renti al panel - Blood monocytes [#/volume] in blood 0.35 text: 0.24 - 0.86 x10'3/ uL ABS. MONOC YTES 0.35 0.24 - 0.86 x10'3 /uL 11/12 6:54 AM CDT [facility] Not Available Not Available 07/23/2024 11:03:52 11/13/19 24 11/13/2023 CBC W Auto Diffe renti al panel - Blood eosinophils [#/volume] in blood 0.06 text: 0.04 - 0.36 x10'3/ uL ABS. EOSIN OPHIL S 0.06 0.04 - 0.36 x10'3 /uL 11/12 6:54 AM CDT [facility] Not Available Not Available 07/23/2024 11:03:52 11/13/19 24 11/13/2023 CBC W Auto Diffe renti al panel - Blood basophils [#/volume] in blood 0.05 text: 0.01 - 0.08 x10'3/ uL ABS. BASOP HILS 0.05 0.01 - 0.08 x10'3 /uL 11/12 6:54 AM CDT [facility] Not Available Not Available 07/23/2024 11:03:52 11/13/19 24 11/13/2023 CBC W Auto Diffe renti al panel - Blood immature granulocytes [#/volume] in blood 0.01 text: 0.00 - 0.49 x10'3/ uL ABS. IMMAT URE GRANU LOCYT ES 0.01 0.00 - 0.49 x10'3 /uL 11/12 6:54 AM CDT [facility] Not Available Not Available 07/23/2024 11:03:52 11/13/19 24 11/13/2023 CBC W Auto Diffe renti al panel - Blood interpretati on and review of laboratory results Abnorm al Not Available Not Available 11:03:52 11/13/19 24 11/13/2023 Basic metab olic 2000 panel - Serum or Plasm a glucose [mass/volume ] in serum or plasma 87 text: 70 - 99 mg/dL GLUCO SE 87 70 - 99 MG/DL 11/12 7:08 AM T [facility] Not Available Not Available 07/23/2024 11:03:51 11/13/19 24 11/13/2023 Basic metab olic 2000 panel - Serum or Plasm a urea nitrogen [mass/volume ] in serum or plasma 21 text: 7 - 18 mg/dL high BUN 21 (H) 7 - 18 MG/DL 11/12 7:08 AM CDT [facility] Not Available Not Available 07/23/2024 11:03:51 11/13/19 24 11/13/2023 Basic metab olic 1999 panel - Serum or Plasm a creatinine [mass/volume ] in serum or plasma 0.96 text: 0.55 - 1.02 mg/dL CREAT ININE S/P/B 0.96 0.55 - 1.02 MG/DL 11/12 7:08 AM CDT [facility] Not Available Not Available 07/23/2024 11:03:51 11/13/19 24 11/13/2023 Basic metab olic 1999 panel - Serum or Plasm a sodium [moles/volum e] in serum or plasma 142 text: 136 - 145 mmol/L SODIU M S/P/B 142 136 - 145 MMOL/ L 11/12 7:08 AM T [facility] Not Available Not Available 07/23/2024 11:03:51 11/13/19 24 11/13/2023 Basic metab olic 1999 panel - Serum or Plasm a potassium [moles/volum e] in serum or plasma 4.2 text: 3.5 - 5.1 mmol/L POTAS SIUM S/P/B 4.2 3.5 - 5.1 MMOL/ L 11/12 7:08 AM T [facility] Not Available Not Available 07/23/2024 11:03:51 11/13/19 24 11/13/2023 Basic metab olic 1999 panel - Serum or Plasm a chloride [moles/volum e] in serum or plasma 108 text: 100 - 108 mmol/L CHLOR MONTY S/P/B 108 100 - 108 MMOL/ L 11/12 7:08 AM T [facility] Not Available Not Available 07/23/2024 11:03:51 11/13/19 24 11/13/2023 Basic metab olic 2000 panel - Serum or Plasm a carbon dioxide, total [moles/volum e] in serum or plasma 30 text: 21 - 32 mmol/L CO2 30.0 21 - 32 MMOL/ L 11/12 7:08 AM T [facility] Not Available Not Available 07/23/2024 11:03:51 11/13/19 24 11/13/2023 Basic metab olic 2000 panel - Serum or Plasm a calcium [mass/volume ] in serum or plasma 9.2 text: 8.5 - 10.1 mg/dL CALCI UM S/P/B 9.2 8.5 - 10.1 MG/DL 11/12 7:08 AM CDT [facility] Not Available Not Available 07/23/2024 11:03:51 11/13/19 24 11/13/2023 Basic metab olic 2000 panel - Serum or Plasm a anion gap in serum or plasma 4 text: 5 - 15 mmol/L low ANION GAP 4.0 (L) 5 - 15 MMOL/ L 11/12 7:08 AM CDT [facility] Not Available Not Available 07/23/2024 11:03:51 11/13/19 24 11/13/2023 Basic metab olic 2000 panel - Serum or Plasm a urea nitrogen/cre atinine [mass ratio] in serum or plasma 21.9 low: 6high: 26 BUN CREAT ININE RATIO 21.9 6 - 26 11/12 7:08 AM CDT [facility] Not Available Not Available 07/23/2024 11:03:51 11/13/19 24 11/13/2023 Basic metab olic 2000 panel - Serum or Plasm a glomerular filtration rate/1.73 sq M.predicted [volume rate/area] in serum, plasma or blood by creatinine-b ased formula (CKD-epi 2020) 62 text: >90 mL/min /1.73 M2 low GFR ESTIM ATE 62 (L) >90 ML/TN N/1.7 3 M2 11/12 7:08 AM CDT [facility] Not Available Not Available 07/23/2024 11:03:51 11/13/19 24 11/13/2023 Basic metab olic 2000 panel - Serum or Plasm a interpretati on and review of laboratory results Abnorm al Not Available Not Available 11:03:51 01/09/20 24 01/10/2024 TSH REFLE X TO T4F TSH 1.610 uIU/m L 0.450- 4.500 Not Available [facility] ([facility]) [address] [place], [address], 01/10/2024 08:31:22 01/09/20 24 01/10/2024 BASIC METAB OLIC PANEL (8) glucose 107 mg/dL 70-99 above high normal Not Available [facility] ([facility]) [address] [place], [address], 01/10/2024 08:31:23 01/09/2001/10/2024 BASIC METAB OLIC PANEL (8) BUN 20 mg/dL 8-27 Not Available [facility] ([facility]) [address] [place], [address], 01/10/2024 08:31:23 01/09/20 24 01/10/2024 BASIC METAB OLIC PANEL (8) creatinine 0.97 mg/dL 0.57-1 .00 Not Available [facility] ([facility]) [address] [place], [address], 01/10/2024 08:31:23 01/09/20 24 01/10/2024 BASIC METAB OLIC PANEL (8) eGFR 62 mL/mi n/1.7 3 >59 Not Available [facility] ([facility]) [address] [place], [address], 01/10/2024 08:31:23 01/09/2001/10/2024 BASIC METAB OLIC PANEL (8) BUN/creatini ne ratio 21 12-28 Not Available [facility] ([facility]) [address] [place], [address], 01/10/2024 08:31:23 01/09/20 24 01/10/2024 BASIC METAB OLIC PANEL (8) sodium 134 mmol/ L 134-14 4 Not Available [facility] ([facility]) [address] [facility] [place], [address], 01/10/2024 08:31:23 01/09/20 24 01/10/2024 BASIC METAB OLIC PANEL (8) potassium 4.4 mmol/ L 3.5-5. 2 Not Available [facility] ([facility]) [address] [facility] [place], [address], 01/10/2024 08:31:23 01/09/20 24 01/10/2024 BASIC METAB OLIC PANEL (8) chloride 95 mmol/ L 96-106 below low normal Not Available [facility] ([facility]) [address] [facility], [place], [address], 01/10/2024 08:31:23 01/09/20 24 01/10/2024 BASIC METAB OLIC PANEL (8) carbon dioxide, total 26 mmol/ L 20-29 Not Available [facility] ([facility]) [address] [facility] [place], [address], 01/10/2024 08:31:23 01/09/2001/10/2024 BASIC METAB OLIC PANEL (8) calcium 9.2 mg/dL 8.7-10 .3 Not Available [facility] ([facility]) [address] [facility] [place], [address], 01/10/2024 08:31:23 01/09/20 24 01/10/2024 CBC, PLATE LET, NO DIFFE RENTI AL WBC 4.2 x10e3 /uL 3.4-10 .8 Not Available [facility] ([facility]) [address] [facility] [place], [address], 01/10/2024 08:31:24 01/09/20 24 01/10/2024 CBC, PLATE LET, NO DIFFE RENTI AL RBC 3.55 x10e6 /uL 3.77-5 .28 below low normal Not Available [facility] ([facility]) [address] [facility], [place], [address], 01/10/2024 08:31:24 01/09/2001/10/2024 CBC, PLATE LET, NO DIFFE RENTI AL hemoglobin 11.5 g/dL 11.1-1 5.9 Not Available [facility] ([facility]) [address] [facility], [place], [address], 01/10/2024 08:31:24 01/09/2001/10/2024 CBC, PLATE LET, NO DIFFE RENTI AL hematocrit 35.1 % 34.0-4 6.6 Not Available [facility] ([facility]) [address] [facility], [place], [address], 01/10/2024 08:31:24 01/09/2001/10/2024 CBC, PLATE LET, NO DIFFE RENTI AL MCV 99 fL 79-97 above high normal Not Available [facility] ([facility]) [address] [facility], [place], [address], 01/10/2024 08:31:24 01/09/2001/10/2024 CBC, PLATE LET, NO DIFFE RENTI AL MCH 32.4 pg 26.6-3 3.0 Not Available [facility] ([facility]) [address] [place], [address], 01/10/2024 08:31:24 01/09/2001/10/2024 CBC, PLATE LET, NO DIFFE RENTI AL MCHC 32.8 g/dL 31.5-3 5.7 Not Available [facility] ([facility]) [address] [place], [address], 01/10/2024 08:31:24 01/09/2001/10/2024 CBC, PLATE LET, NO DIFFE RENTI AL RDW 13.2 % 11.7-1 5.4 Not Available [facility] ([facility]) [address] [facility] [place], [address], 01/10/2024 08:31:24 01/09/20 24 01/10/2024 CBC, PLATE LET, NO DIFFE RENTI AL platelets 237 x10e3 /uL 150-45 0 Not Available [facility] ([facility]) [address] [facility], [place], [address], 01/10/2024 08:31:24 07/14/19 25 07/15/2024 TSH+F REE T4 TSH 0.832 uIU/m L 0.450- 4.500 Not Available [facility] ([facility]) [address] [place], [address], 07/15/2024 07:40:49 07/14/19 25 07/15/2024 TSH+F REE T4 T4,free(dire ct) 1.60 NG/dL 0.82-1 .77 Not Available [facility] ([facility]) [address] [place], [address], 07/15/2024 07:40:49 07/14/19 25 07/15/2024 CMP14 +EGFR glucose 124 mg/dL 70-99 above high normal Not Available [facility] ([facility]) [address] [place], [address], 07/15/2024 07:40:50 07/14/19 25 07/15/2024 CMP14 +EGFR BUN 23 mg/dL 8-27 Not Available [facility] ([facility]) [address] [place], [address], 07/15/2024 07:40:50 07/14/19 25 07/15/2024 CMP14 +EGFR creatinine 0.88 mg/dL 0.57-1 .00 Not Available [facility] ([facility]) [address] [place], [address], 07/15/2024 07:40:50 07/14/19 25 07/15/2024 CMP14 +EGFR eGFR 69 mL/mi n/1.7 3 >59 Not Available [facility] ([facility]) [address] [place], [address], 07/15/2024 07:40:50 07/14/19 25 07/15/2024 CMP14 +EGFR BUN/creatini ne ratio 26 12-28 Not Available [facility] ([facility]) [address] [place], [address], 07/15/2024 07:40:50 07/14/19 25 07/15/2024 CMP14 +EGFR sodium 139 mmol/ L 134-14 4 Not Available [facility] ([facility]) [address] [place], [address], 07/15/2024 07:40:50 07/14/19 25 07/15/2024 CMP14 +EGFR potassium 4.3 mmol/ L 3.5-5. 2 Not Available [facility] ([facility]) [address] [place], [address], 07/15/2024 07:40:50 07/14/19 25 07/15/2024 CMP14 +EGFR chloride 100 mmol/ L 96-106 Not Available [facility] ([facility]) [address] [place], [address], 07/15/2024 07:40:50 07/14/19 25 07/15/2024 CMP14 +EGFR carbon dioxide, total 26 mmol/ L 20-29 Not Available [facility] ([facility]) [address] [place], [address], 07/15/2024 07:40:50 07/14/19 25 07/15/2024 CMP14 +EGFR calcium 9.4 mg/dL 8.7-10 .3 Not Available [facility] ([facility]) [address] [place], [address], 07/15/2024 07:40:50 07/14/19 25 07/15/2024 CMP14 +EGFR protein, total 6.9 g/dL 6.0-8. 5 Not Available [facility] ([facility]) [address] [facility], [place], [address], 07/15/2024 07:40:50 07/14/19 25 07/15/2024 CMP14 +EGFR albumin 4.5 g/dL 3.8-4. 8 Not Available [facility] ([facility]) [address] [place], [address], 07/15/2024 07:40:50 07/14/19 25 07/15/2024 CMP14 +EGFR globulin, total 2.4 g/dL 1.5-4. 5 Not Available [facility] ([facility]) [address] [place], [address], 07/15/2024 07:40:50 07/14/19 25 07/15/2024 CMP14 +EGFR bilirubin, total 0.2 mg/dL 0.0-1. 2 Not Available [facility] ([facility]) [address] [place], [address], 07/15/2024 07:40:50 07/14/19 25 07/15/2024 CMP14 +EGFR alkaline phosphatase 109 IU/L 44-121 Not Available [facility] ([facility]) [address] [place], [address], 07/15/2024 07:40:50 07/14/19 25 07/15/2024 CMP14 +EGFR AST (SGOT) 25 IU/L 0-40 Not Available [facility] ([facility]) [address] [place], [address], 07/15/2024 07:40:50 07/14/19 25 07/15/2024 CMP14 +EGFR ALT (SGPT) 18 IU/L 0-32 Not Available [facility] ([facility]) [address] [facility], [place], [address], 07/15/2024 07:40:50 07/14/1907/15/2024 CBC, PLATE LET, NO DIFFE RENTI AL WBC 6.3 x10e3 /uL 3.4-10 .8 Not Available [facility] ([facility]) [address] [facility], [place], [address], 07/15/2024 07:40:52 07/14/1907/15/2024 CBC, PLATE LET, NO DIFFE RENTI AL RBC 3.99 x10e6 /uL 3.77-5 .28 Not Available [facility] ([facility]) [address] [facility], [place], [address], 07/15/2024 07:40:52 07/14/1907/15/2024 CBC, PLATE LET, NO DIFFE RENTI AL hemoglobin 13.2 g/dL 11.1-1 5.9 Not Available [facility] ([facility]) [address] [facility], [place], [address], 07/15/2024 07:40:52 07/14/1907/15/2024 CBC, PLATE LET, NO DIFFE RENTI AL hematocrit 38.9 % 34.0-4 6.6 Not Available [facility] ([facility]) [address] [facility], [place], [address], 07/15/2024 07:40:52 07/14/1907/15/2024 CBC, PLATE LET, NO DIFFE RENTI AL MCV 98 fL 79-97 above high normal Not Available [facility] ([facility]) [address] [facility], [place], [address], 07/15/2024 07:40:52 07/14/19 25 07/15/2024 CBC, PLATE LET, NO DIFFE RENTI AL MCH 33.1 pg 26.6-3 3.0 above high normal Not Available [facility] ([facility]) [address] [facility], [place], [address], 07/15/2024 07:40:52 07/14/19 25 07/15/2024 CBC, PLATE LET, NO DIFFE RENTI AL MCHC 33.9 g/dL 31.5-3 5.7 Not Available [facility] ([facility]) [address] [facility], [place], [address], 07/15/2024 07:40:52 07/14/19 25 07/15/2024 CBC, PLATE LET, NO DIFFE RENTI AL RDW 12.1 % 11.7-1 5.4 Not Available [facility] ([facility]) [address] [facility], [place], [address], 07/15/2024 07:40:52 07/14/19 25 07/15/2024 CBC, PLATE LET, NO DIFFE RENTI AL platelets 293 x10e3 /uL 150-45 0 Not Available [facility] ([facility]) [address] [facility], [place], [address], 07/15/2024 07:40:52 09/12/19 25 09/12/2024 LIPID PANEL cholesterol, total 189 mg/dL 100-19 9 Not Available [facility] ([facility]) [address] [facility], [place], [address], 09/12/2024 09:13:44 09/12/19 25 09/12/2024 LIPID PANEL triglyceride s 105 mg/dL 0-149 Not Available [facility] ([facility]) [address] [facility], [place], [address], 09/12/2024 09:13:44 09/12/19 25 09/12/2024 LIPID PANEL HDL cholesterol 76 mg/dL >39 Not Available [facility] ([facility]) [address] [facility], [place], [address], 09/12/2024 09:13:44 09/12/19 25 09/12/2024 LIPID PANEL VLDL cholesterol josr 18 mg/dL 5-40 Not Available [facility] ([facility]) [address] [facility], [place], [address], 09/12/2024 09:13:44 09/12/19 25 09/12/2024 LIPID PANEL LDL chol calc ([facility]) 95 mg/dL 0-99 Not Available [facility] ([facility]) [address] [facility], [place], [address], 09/12/2024 09:13:44 09/25/19 24 elect rocar diogr am No observ ation record ed. [email or web address] In-Office Order Internal Use Only DO Not Attach Compendium DO Not Attach Compendium, Do Not Delete/merge, [id number] 09/25/2023 08:47:36 01/14/20 24 01/14/2024 elect rocar diogr am No observ ation record ed. OTIS In-Office Order Internal Use Only DO Not Attach Compendium DO Not Attach Compendium, Do Not Delete/merge, [id number] 01/14/2024 17:58:03 01/15/20 24 01/14/2024 elect rocar diogr am No observ ation record ed. BARCODE In-Office Order Internal Use Only DO Not Attach Compendium DO Not Attach Compendium, Do Not Delete/merge, [id number] 01/15/2024 15:17:45 07/22/19 25 07/23/2024 elect rocar diogr am No observ ation record ed. OTIS In-Office Order Internal Use Only DO Not Attach Compendium DO Not Attach Compendium, Do Not Delete/merge, [id number] 07/23/2024 07:25:34 07/22/19 elect rocar diogr am No observ ation record ed. [email or web address] Not Available 07/23 07:29:40 10/08/19 25 10/01/2024 US, echoc ardio gram, trans thora cic, compl ete, w/ color flow No observ ation record ed. [facility] [address], [place], [address], 10/08/2024 09:33:28 Result Notes None recorded. Problems Name Problem SNOMED Code Status Onset Date Resolution Date Notes Provider Name and Address Organization Details Recorded Time Paroxysmal atrial fibrillatio n 222369555 Active 2023 Saad Weinberg MD Attn: Corrina desir,[address] [place], [address], [place] [facility] 4 18:09:07 Paroxysmal atrial flutter 457776628 Active 2023 Saad Weinberg MD Attn: Corrina desir,[address] [place], [address] [facility] 4 18:09:08 Hypothyroid ism 83323676 Active 2023 Saad Weinberg MD Attn: Corrina desir,[address] [place], [address] [facility] 4 18:09:09 Atrial fibrillatio n with rapid ventricular response 4603908344397 09 Active 2023 Saad Weinberg MD Attn: Corrina desir,[address] [place], [address], [place] [facility] 4 18:21:53 Aortic valve regurgitati on 13003247 Active 2023 Saad Weinberg MD Attn: Corrina desir,[address] [place], [address], [place] [facility] 4 17:17:50 Pulmonary hypertensio n 05028153 Active 2023 Saad Weinberg MD Attn: Corrina desir,[address] [place], [address], [place] [facility] 4 17:17:52 Tricuspid valve regurgitati on 087605914 Active 2023 Saad Weinberg MD Attn: Corrina desir,[address] [place], [address], [place] [facility] 4 17:17:53 Long-term current use of anticoagula nt 309061669 Active 2023 Saad Weinberg MD Attn: Beckatoni desir,[address] [facility], [place], [address], [place] [facility] 4 17:36:38 Long-term current use of amiodarone 9493072896747 06 Active 2023 Saad Weinberg MD Attn: Corrina karlee,[address] [facility], [place], [address], [place] [facility] 4 17:37:03 Pericardial effusion 352695445 Active 2024 Saad Weinberg MD Attn: Corrina karlee,[address] [facility], [place], [address], [place] [facility] 5 17:51:31 Hyperlipide vin screening Active 2024 Saad Weinberg MD Attn: Beckatoni desir,[address] [facility], [place], [address], [place] [facility] 5 17:52:06 Problem Notes None recorded. Procedures Surgical History None recorded. Imaging Results Imaging Date Name Status LastModified by Organization Details LastModified Time 09/25/2023 electrocardiogram completed [email or web address] In-Offi ce Order Internal Use Only DO Not Attach Compendium DO Not Attach Compendium, Do Not Delete/merge, [id number] 09/25/2023 08:47:36 01/14/2024 electrocardiogram completed OTIS In-Offi ce Order Internal Use Only DO Not Attach Compendium DO Not Attach Compendium, Do Not Delete/merge, [id number] 01/14/2024 17:58:03 01/14/2024 electrocardiogram completed BARCODE In-Offi ce Order Internal Use Only DO Not Attach Compendium DO Not Attach Compendium, Do Not Delete/merge, [id number] 01/15/2024 15:17:45 07/23/2024 electrocardiogram completed OTIS In-Offi ce Order Internal Use Only DO Not Attach Compendium DO Not Attach Compendium, Do Not Delete/merge, [id number] 07/23/2024 07:25:34 07/22/2024 electrocardiogram completed [email or web address] Informa tion not available 07/23/2024 07:29:40 10/01/2024 US, echocardiogram, transthoracic, complete, w/ color flow completed [facility] [address], [place], [address], 10/08/2024 09:33:28 Procedure Notes None recorded. Medical Equipment None [...] No t Available Eliquis 5 mg tablet Take 1 tablet twice a day by oral route for 90 days. 2024 active Not Available Not Available Not Avai lable Vitals Date Recorded Body height Body mass index (BMI) Body weight Heart rate Respiratory rate Oxygen saturation Oxygen saturation in Arterial blood by Pulse oximetry Systolic blood pressure Diastolic blood pressure Provider Name and Address Organization Details Last Updated DateTime 4 170.18 cm 17.6 kg/m2 08490.7 g 136 /min 18 /min 98 % 98 % 130 mm[Hg] 64 mm[Hg] Gaby raza MA [facility] 4 17:13:25 Date Recorded Body height Body mass index (BMI) Body weight Heart rate Oxygen saturation Oxygen saturation in Arterial blood by Pulse oximetry Systolic blood pressure Diastolic blood pressure Provider Name and Address Organization Details Last Updated DateTime 4 170.18 cm 17.6 kg/m2 46960.0 6 g 72 /min 98 % 98 % 110 mm[Hg] 68 mm[Hg] Treasure [place] MA [facility] 4 16:28:09 Date Recorded Body height Body mass index (BMI) Body weight Respiratory rate Heart rate Oxygen saturation Oxygen saturation in Arterial blood by Pulse oximetry Systolic blood pressure Diastolic blood pressure Provider Name and Address Organization Details Last Updated DateTime 4 170.18 cm 18.5 kg/m2 71722.9 g 18 /min 75 /min 99 % 99 % 122 mm[Hg] 76 mm[Hg] Sridhar Banda MA [facility] 4 16:46:20 Date Recorded Body height Provider Name an d Address Organization Details Last Updated DateTime 07/22/2024 170.18 cm Treasure [place] MA [facility] 025 17:06:11 Date Recorded Body mass index (BMI) Body weight Heart rate Oxygen saturation Oxygen saturation in Arterial blood by Pulse oximetry Systolic blood pressure Diastolic blood pressure Provider Name and Address Organization Details Last Updated DateTime 5 18.5 kg/m2 37508.9 g 83 /min 98 % 98 % 122 mm[Hg] 78 mm[Hg] Ed Jenkins MA [facility] 17:18:52 Date Recorded Body height Body mass index (BMI) Body weight Heart rate Oxygen saturation Oxygen saturation in Arterial blood by Pulse oximetry Systolic blood pressure Diastolic blood pressure Provider Name and Address Organization Details Last Updated DateTime 170.18 cm 17.9 kg/m2 64177.6 9 g 75 /min 97 % 97 % 118 mm[Hg] 70 mm[Hg] Ed Jenkins MA [facility] 16:21:35 Social History Question Answer Notes LastModified by [employer] Details LastModified Time Tobacco Smoking Status Never Smoker Gaby Gama MA null, [facility] 09/24/2023 17:14:16 What Is Your Level Of Caffeine Consumption? None Information not available 10/11/2023 What Was The Date Of Your Most Recent Tobacco Screening? 07/22/2024 Information not available 07/22/2024 Sex: Unknown Functional Status Question Answer Note LastModified by [employer] Details LastModified Time Do you use any illicit or recreational drugs? No Information not available 10/11/2023 Do you or have you ever used any other forms of tobacco or nicotine? No Information not available 10/11/2023 What is your level of alcohol consumption? None Information not available 10/11/2023 Mental Status None recorded. Family History Nothing Reported. Medical History No medical history recorded. Gynecological HistoryNo gynecological history recorded. Obstetrics History GPAL:G 0 P 0 0 0 0 Immunizations Vaccine Type Date Status Note Provider Nam e and Address Organization Details Recorded Time Influenza, split virus, trivalent, preservative 2 completed Not Available [facility] 10/08/2024 15:57:54 Influenza, high-dose, trivalent, PF 5 completed Not Available [facility] 10/08/2024 15:57:54 Pneumococcal conjugate PCV 13 5 completed Not Available [facility] 10/08/2024 15:57:54 pneumococcal polysaccharide PPV23 6 completed Not Available [facility] 10/08/2024 15:57:54 zoster live 6 completed Not Available [facility] 10/08/2024 15:57:54 Influenza, high-dose, trivalent, PF 6 completed Not Available [facility] 10/08/2024 15:57:54 Influenza, high-dose, trivalent, PF 7 completed Not Available [facility] 10/08/2024 15:57:54 Influenza, adjuvanted, trivalent, PF 8 completed Not Available [facility] 10/08/2024 15:57:54 Influenza, high-dose, trivalent, PF 9 completed Not Available [facility] 10/08/2024 15:57:54 zoster recombinant 0 completed Not Available [facility] 10/08/2024 15:57:54 Influenza, adjuvanted, quadrivalent, PF 0 completed Not Available [facility] 10/08/2024 15:57:54 zoster recombinant 0 completed Not Available [facility] 10/08/2024 15:57:54 COVID-19, mRNA, LNP-S, PF, 100 mcg/0.5mL dose or 50 mcg/0.25mL dose 1 completed Not Available [facility] 10/08/2024 15:57:54 COVID-19, mRNA, LNP-S, PF, 100 mcg/0.5mL dose or 50 mcg/0.25mL dose 1 completed Not Available [facility] 10/08/2024 15:57:54 Influenza, high-dose, quadrivalent, PF 1 completed Not Available [facility] 10/08/2024 15:57:54 COVID-19, mRNA, LNP-S, PF, 100 mcg/0.5mL dose or 50 mcg/0.25mL dose 1 completed Not Available [facility] 10/08/2024 15:57:54 COVID-19, mRNA, LNP-S, PF, 100 mcg/0.5mL dose or 50 mcg/0.25mL dose 2 completed Not Available [facility] 10/08/2024 15:57:54 Influenza, high-dose, quadrivalent, PF 2 completed Not Available [facility] 10/08/2024 15:57:54 COVID-19, mRNA, LNP-S, bivalent, PF, 50 mcg/0.5 mL or 25mcg/0.25 mL dose 2 completed Not Available [facility] 10/08/2024 15:57:54 COVID-19, mRNA, LNP-S, bivalent, PF, 50 mcg/0.5 mL or 25mcg/0.25 mL dose 3 completed Not Available [facility] 10/08/2024 15:57:54 RSV, bivalent, protein subunit RSVpreF, diluent reconstituted, 0.5 mL, PF 3 completed Not Available [facility] 10/08/2024 15:57:54 COVID-19, mRNA, LNP-S, PF, 50 mcg/0.5 mL 3 completed Not Available [facility] 10/08/2024 15:57:54 Influenza, adjuvanted, quadrivalent, PF 3 completed Not Available [facility] 10/08/2024 15:57:54 COVID-19, mRNA, LNP-S, PF, 50 mcg/0.5 mL 4 completed Not Available [facility] 10/08/2024 15:57:54 Influenza, high-dose, trivalent, PF 4 completed Not Available [facility] 10/08/2024 15:57:54 Tdap 5 completed Not Available [facility] 10/08/2024 15:57:54 Past Encounters Encounter ID Performer Location Encounter Start Date Encounter Closed Date Diagnosis/Indication Diagnosis SNOMED-CT Code Diagnosis ICD10 Code Diagnosis Note [id number] Saad Weinberg MD [facility] [place] [facility] [facility] [address] [facility] [place] [address] 09/24/2023 16:19:41 09/25/2023 11:27:16 Paroxysmal atrial fibrillation 460105969 I48.0 Paroxysmal atrial flutter 833844808 I48.92 Hypothyroidism 18842874 E03.9 Atrial fib rillation with rapid ventricular response 2915077626 88319 I48.[id number] [facility] [place] [address] [place] [address] 10/11/2023 16:19:25 10/15/2023 09:30:33 Paroxysmal atrial fibrillation 826809046 I48.0 Paroxysmal atrial flutter 547887173 I48.92 Hypothyroidism 15389852 E03.9 Long-term current use of anticoagulant 875279140 Z79.01 Aortic syd ve regurgitation 76597462 I35.1 Pulmonary hypertension 07276880 I27.20 Tricuspid valve regurgitation 864711842 I07.1 [id number] [facility] [place] [address] [place] [address] 01/14/2024 16:22:01 01/16/2024 12:59:14 Aortic valve regurgitation 47055405 I35.1 Paroxysmal atrial fibrillation 885777414 I48.0 Paroxysmal atrial flutter 411699561 I48.92 Tricuspid valve regurgitation 209181290 I07.1 Long-term current use of anticoagulant 716794568 Z79.01 Long-term current use of amiodarone 6224977114 40680 Z79.602 [id number] [facility] [place] [address] [place] [address] 07/22/2024 16:39:06 07/23/2024 11:00:47 Aortic valve regurgitation 50666069 I35.1 Long-term current use of anticoagulant 914525351 Z79.01 Paroxysmal atrial fibrillation 012738528 I48.0 Paroxysmal atrial flutter 241040572 I48.92 Tricuspid valve regurgitation 920353671 I07.1 Pericardial effusion 373 076365 I31.39 Hyperlipid emia screening 686793301 Z13.[id number] [facility] [place] [facility] [address] [place] [address] 10/08/2024 15:56:13 10/09/2024 16:05:49 Repeated prescription 847020540 Z76.0 Paroxysmal atrial fibrillation 437363307 I48.0 Long-term current use of anticoagulant 601686075 Z79.01 Paroxysmal atrial flutter 380098951 I48.92 Tricuspid valve regurgitation 548989023 I07.1 Aortic syd ve regurgitation 14665234 I35.1 Health Concerns Section Related Observation LastModified by Organization Detai ls LastModified Time None Recorded Concern Status LastModified by Organization Details LastModified Time None Recorded Advance Directives Directive None Recorded Payers Encounter Date Sequence Insurance Name Policy Number Policy Fontana Covered Member ID Fontana Member ID Guarantor Name 09/24/2023 1 [employer] (MEDICARE REPLACEMENT /ADVANTAGE - PPO) [id number] 1 Fide Chambersfield [id number] Fide Chambersfield 10/11/2023 1 [employer] (MEDICARE REPLACEMENT /ADVANTAGE - PPO) [id number] 1 Fide Nory [id number] Fide Cueto 01/14/2024 1 [employer] (MEDICARE REPLACEMENT /ADVANTAGE - PPO) [id number] 1 Fabyhuan ChambersNory [id number] Fide Chambersfield 07/22/2024 1 [employer] (MEDICARE REPLACEMENT /ADVANTAGE - PPO) [id number] 1 Fide Nory [id number] Fide Cueto 10/08/2024 1 [employer] (MEDICARE REPLACEMENT /ADVANTAGE - PPO) [id number] Fide Nory [id number] Charlesabnerhuan Nory Notes Date Note Type Note Provider Name [...] edema. Saad Weinberg MD Attn: [address]ing[address] [place], [address], [place] [facility] 09/24/2023 18:22:07 10/11/2023 text/html Ms. Cueto i s a 73 year old returns for follow-up visit . After being sent to [facility] at time of her last [...] She did have an echocardiogram done at [facility] on 09/26/2023 which shows the left ventricle [...] edema. Saad Weinberg MD Attn: [address] [place], [address], [facility] 10/11/2023 17:19:10 01/14/2024 text/html Ms. Nory renee [...] edema. Saad Weinberg MD Attn: [address]ing[address] [place], [address], [facility] 01/14/2024 17:45:26 07/22/2024 text/html Ms. Nory gleason [...] edema. Saad Weinberg MD Attn: [address]ing[address] [place], [address], [facility] 07/22/2024 17:53:09 10/08/2024 text/html Ms. Nory gleason s a 73 year old returns for follow-up visit. She did undergo an echocardiogram on 10/01/2024 which showed a normal left ventricular size. Mild concentric left ventricular hypertrophy. There is hyperdynamic left ventricular systolic function. LV ejection fraction is greater than 70%. Left ventricular diastolic function is indeterminate. The average global longitudinal strain rate is normal at -23.7%. Total wall motion score is 1.00. there are no regional wall motion abnormalities. Normal right ventricular size and systolic function. Trace mild aortic valve regurgitation. There is moderate tricuspid regurgitation. The estimated right ventricular systolic pressure is 44 mmHg. Estimated pulmonary artery systolic pressure is consistent with mild pulmonary hypertension. Normal pericardium without evidence of pericardial effusion. The IVC was <2.1 cm and collapsibility >50%. the RA pressure is estimated to be 3 mmHg.09/26/2023. Her shortness of breath symptoms are improved since she has been in sinus rhythm although when she had a cold last week she did have some shortness of breath transiently. She complains of some fatigue but admits she does not get enough sleep. She is scheduled for a left total knee arthroplasty on Sunday10/14/2024 at [facility].She has not had any palpitations consistent with the atrial fibrillation or flutter. She continues on Eliquis 5 mg p.o. b.i.d. without any significant bleeding. She denies any falls or any neurologic complaints. She continues to swim for 45 minutes daily without any chest pain or shortness of breath. She is compliant with her medications. She denies any dizziness, syncope, orthopnea, paroxysmal nocturnal dyspnea or lower extremity edema. Saad Weinberg MD Attn: [address]ing[address] [place], [address], [place] [facility] 10/08/2024 17:26:01 OBGyn Episode No OBEpisode recorded.
--- OUTSIDE RECORDS SUMMARY | 2024-10-14 00:19 | XMS_ITS | Encounter Summary ---
Author Organization [facility] Facility Care Team Providers Care Account Services Manager Name Role Phone Dorian Hill MD Primary Care Provider + Aldair Buchanan MD Primary Care Provider [phone] Luis Venegas MD Primary Care Provider [phone] Encounter Details Date Type Department Care Team (Latest Contact Info) Description 03/05/2018 Orders Only [facility] CLINCONV ProviderEulogio MD [address] [place] [address] Social History Tobacco Use Types Packs/Day Years Used Date Smoking Tobacco: Never Smokeless Tobacco: Never Alcohol Use Standard Drinks/Week Comments Yes 7 (1 standard drink = 0.6 oz pur e alcohol) Comments No Sex and Gender Information Value Date Recorded Sex Assigned at Not on file Legal Sex Female 8:36 PM 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
--- OUTSIDE RECORDS SUMMARY | 2024-10-14 00:19 | XMS_ITS | Encounter Summary ---
Author Organization [facility] Address [address] [place] [address] Care Team Providers Care Cloth Finishing Range Back Tender Name Role Phone Luis Venegas MD Primary Care Provider [phone] Encounter Details Date Type Department Care Team (Late st Contact Info) Description 09/27/2023 [employer] Message Enc [place] [facility] [address] Hilda Dowling PA-C after surgery [...] from your doctor or pharmacy? Never 09/24/2023 [facility] Utilities Answer Date Recorded In the past 12 months has [facility] [employer], [employer], or water [employer] threatened to shut off services in your [...] week 09/24/2023 How often do you attend quaker or denominational serv ices? Patient declined 09/24/2023 Do you belong to any clubs o r organizations such as quaker groups, unions, fraternal or athletic groups, or [...] medical care, and heating? Patient declined 09/24/2023 [facility] - Occupational Stress Questionnaire Answer Date [...] any time in the past 12 m [facility], were you homeless or living in a assisted (including now)? Patient declined 09/24/2023 Comments Unknown [...] CDT Office Visit [facility] THREE [facility], [facility] [address] [place] [address] Pebbles Nugent MD Three [facility]. [facility] [address] [place], [place] [id number] documented as of this encounter Visit Diagnoses Not on filedocumented in this encounter Care Teams Cloth Finishing Range Back Tender Relationship Specialty Start Date End Date Luis Venegas MD [address] [address] PCP - General INTERNAL MEDICINE 09/24/23 documented as of this encounter
--- OUTSIDE RECORDS SUMMARY | 2024-10-14 00:19 | XMS_ITS | Encounter Summary ---
Author Organization [facility] Address [address] [place] [address] Care Team Providers Care Nailer Hand Name Role Phone Luis Venegas MD Primary Care Provider [phone] Reason for Referral * Imaging (Routine) - Closed Specialty Diagnoses / Procedures Referred By Contac t Referred To Contact RADIOLOGY Diagnoses Atrial fibrillation ([facility] HHS/HCC) Procedures XA A-FIB ABLATION Pebbles Nugent MD [address] [address] Phone: tel: fax: Referral ID Status Reason Start Date Expiration Date Visits Re quested Visits Authorized [id number] Closed 10/05/2023 10/04/2024 1 1 * Imaging (Routine) - Closed Specialty Diagnoses / Procedures Referred By Contac t Referred To Contact RADIOLOGY Diagnoses Atrial fibrillation ([facility] HHS/HCC) Procedures USE TRANSESOPHAGEAL ECHO Pebbles Nugent MD [address] [address] Phone: tel: fax: Referral ID Status Reason Start Date Expiration Date Visits Re quested Visits Authorized [id number] Closed 10/05/2023 10/04/2024 1 1 Encounter Details Date Type Department Care Team (Late st Contact Info) Description 10/03/2023 [employer] Message Enc [place] [facility] [address] [place] [address] Pebbles Nugent MD Three [facility]. [address] [place] [address] Afib Ablation Social History Tobacco Use Types [...] from your doctor or pharmacy? Never 09/24/2023 [facility] Utilities Answer Date Recorded In the past 12 months has e [employer], gas, oil, or water [employer] threatened to shut off services in your [...] week 09/24/2023 How often do you attend presybeterian or latter day serv ices? Patient declined 09/24/2023 Do you belong to any clubs o r organizations such as presybeterian groups, unions, fraternal or athletic groups, or [...] medical care, and heating? Patient declined 09/24/2023 [facility] - [...] any time in the past 12 m [facility], were you homeless or living in a fpc (including now)? Patient declined 09/24/2023 Comments Unknown [...] 7:30 am. Instruction letter sentto patient thru [facility] * Kalyani Spencer - 10/03/2023 11:14 AM CDT [employer] message sent to patient about scheduling afib ablation for Th11/08/23 at 7:30 am with Sherlyn. documented in this encounter Plan of Treatment Upcoming Encounters Date Type Department Care Team (Late st Contact Info) Description 12/08/2024 3:00 PM CDT Office Visit [facility] THREE [facility], [address] [place] [address] Pebbles Nugent MD Three [facility]. [address] [place], [place] [id number] Scheduled Orders Name Type Priority Associated Diagnoses Orde r Schedule USE TRANSESOPHAGEAL ECHO ECHO Routine Atrial fibrillation Expected: 11/13/2023 (Approximate), Expires: 10/04/2024 documented as of this encounter Results * XA A-FIB ABLATION (11/13/2023 10:00 AM CDT) Anatomical Region Laterality Modality Cardiac Black Powder Glazing Operator Narrative 11/13/2023 2:37 PM CDT [facility] CARDI[facility] CATHETERIZATION/EP LAB [phone] Atrial Fibrillation Ablation Patient's Name: Fide Cueto Date of : 1950 Medical Record: #[id number] Account: #[id number] Physician: Pebbles Nugent MD Date: 11/13/2023 Procedure: [...] Interpreted: 11/13/23 Transcribed: 11/13/23 Pebbles Nugent MD HAND BRUSH FILLER Final Result * TYPE & SCREEN (11/13/2023 6:20 AM CDT) ABO/RH A POSITIVE 11/13/2023 7:[address] [facility] ANTIBODY SCREEN NEGATIVE 11/13/2023 7:[address] [facility] SAMPLE EXPIRATION 11/16/2023,2 359 11/13/2023 7:[address] [facility] 11/13/2023 6:20 AM CDT us Pebbles Nugent MD BLOOD BANK TEST ORDERABLES Final Result Performing Organization Address City/[facility]/ZIP Co de Phone Number [facility] [address] [place] [address], [place] [phone] * (ABNORMAL) PROTIME/INR, VENOUS (11/13/2023 6:20 AM CDT) Pathologist [facility] PROTIME 13.1(H) 10.2 - 12.9 SEC 11/13/2023 7:[address] [facility] INR 1.1 11/13/2023 7:[address] [facility] Comment: Recommended INR Therapeutic Goals: 2.0-3.0 Routine Therapy 2.5-3.5 Mechanical Prosthetic Valves (High Risk) 11/13/2023 6:20 AM CDT us Pebbles Nugent MD LABORATORY Final Result [facility] [address] [place] [address], [place] [phone] * (ABNORMAL) CBC W/DIFF AUTOMATED (11/13/2023 6:20 AM CDT) WBC 3.08(L) 4.5 - 11.0 x10'3/uL 11/13/2023 6:[address] [facility] RBC 4.40 4.20 - 5.40 x10'6/uL 11/13/2023 6:[address] [facility] HGB 14.0 12.0 - 16.0 G/DL 11/13/2023 6:[address] [facility] HCT 43.0 38.0 - 48.0 % 11/13/2023 6:[address] [facility] MCV 97.7 81.0 - 99.0 FL 11/13/2023 6:[address] [facility] MCH 31.8(H) 27.0 - 31.0 PG 11/13/2023 6:[address] [facility] MCHC 32.6 32.0 - 36.0 G/DL 11/13/2023 6:[address] [facility] RDW 13.1 11.5 - 14.5 % 11/13/2023 6:[address] [facility] PLT 259 130 - 400 x10'3/uL 11/13/2023 6:[address] [facility] MPV 9.3 9.3 - 12.2 FL 11/13/2023 6:[address] [facility] DIFFERENTIAL TYPE AUTOMATED DIFFERENTIAL 11/13/2023 6:[address] [facility] NEUTROPHILS % 55.3 % 11/13/2023 6:[address] [facility] LYMPHOCYTES % 29.5 % 11/13/2023 6:[address] [facility] MONOCYTES % 11.4 % 11/13/2023 6:[address] [facility] EOSINOPHILS 1.9 % 11/13/2023 6:[address] [facility] BASOPHILS 1.6 % 11/13/2023 6:[address] [facility] IMMATURE GRANS % 0.3 % 11/13/19 6:[address] [facility] ABS. NEUTROPHILS 1.70(L) 1.80 - 7.70 x10'3/uL 11/13/2023 6:[address] [facility] ABS. LYMPHOCYTES 0.91(L) 1.00 - 4.80 x10'3/uL 11/13/2023 6:[address] [facility] ABS. MONOCYTES 0.35 0.24 - 0.86 x10'3/uL 11/13/2023 6:[address] [facility] ABS. EOSINOPHILS 0.06 0.04 - 0.36 x10'3/uL 11/13/2023 6:[address] [facility] ABS. BASOPHILS 0.05 0.01 - 0.08 x10'3/uL 11/13/2023 6:[address] [facility] ABS. IMMATURE GRANULOCYTES 0.01 0.00 - 0.49 x10'3/uL 11/13/2023 6:[address] [facility] 11/13/2023 6:20 AM CDT Pebbles Nugent MD LABORATORY Final Result [facility] [address] [place] [address], * (ABNORMAL) BASIC METABOLIC PANEL (11/13/2023 6:20 AM CDT) Pathologist [facility] GLUCOSE 87 70 - 99 MG/DL 11/13/2023 7:[address] [facility] BUN 21(H) 7 - 18 MG/DL 11/13/2023 7:[address] [facility] CREATININE S/P/B 0.96 0.55 - 1.02 MG/DL 11/13/2023 7:[address] [facility] SODIUM S/P/B 142 136 - 145 MMOL/L 11/13/2023 7:[address] [facility] POTASSIUM S/P/B 4.2 3.5 - 5.1 MMOL/L 11/13/2023 7:[address] [facility] CHLORIDE S/P/B 108 100 - 108 MMOL/L 11/13/2023 7:[address] [facility] CO2 30.0 21 - 32 MMOL/L 11/13/2023 7:[address] [facility] CALCIUM S/P/B 9.2 8.5 - 10.1 MG/DL 11/13/2023 7:[address] [facility] ANION GAP 4.0(L) 5 - 15 MMOL/L 11/13/2023 7:[address] [facility] BUN CREATININE RATIO 21.9 6 - 26 11/13/2023 7:[address] [facility] GFR ESTIMATE 62(L) >90 ML/MIN/1.7 3 M2 11/13/2023 7:[address] [facility] Comment: NOTE: eGFR is not calculated for patients <18 years of age. This is an estimated GFR calculation using the new CKD EPI creatinine equation without race and so does not require a correction factor for race. This estimated GFR should not be used for calculating drug doses. 11/13/2023 6:20 AM CDT Pebbles Nugent MD LABORATORY Final Result [facility] [address] [place] [address], documented in this encounter Visit Diagnoses Diagnosis Atrial fibrillation (CMS/HCC HHS/HCC)- Primary Atrial fibrillation Atrial fibrillation (CMS/HCC HHS/HCC) Atrial fibrillation documented in this encounter Care Teams Nailer Hand Relationship Specialty Start Date End Date Luis Venegas MD [address] [address] PCP - General INTERNAL MEDICINE 09/24/23 documented as of this encounter
--- OUTSIDE RECORDS SUMMARY | 2024-10-14 00:20 | XMS_ITS | Encounter Summary ---
Author Organization [facility] Address [address] [place] [address] Phone Care Team Providers Care Procurement Clerk Name Role Phone Luis Venegas MD Primary Care Provider [phone] Encounter Details Date Type Department Care Team [...] on file Legal Sex Female 8:36 PM BILINGUAL EXECUTIVE ASSISTANT Gender Identity Female 01/22/2024 8:14 PM CDT [...] on filedocumented in this encounter Care Teams Procurement Clerk Relationship Specialty Start Date End Date Luis Venegas MD PCP - General Internal Medicine 11/13/22 documented as of this encounter
--- OUTSIDE RECORDS SUMMARY | 2024-10-14 00:20 | XMS_ITS | Referral Summary ---
Author Organization [facility] Address [address] [place] [address] Care Team Providers Care Whitewater Rafting Guide Name Role Phone Luis Venegas MD Primary Care Provider [phone] Encounters Date Type Department Care Team Description 10/07/2024 Orders Only [facility] [address] [place] [phone] Luis Venegas MD 09/26/2024 Orders Only [facility] [address] [phone] Luis Venegas MD 09/25/2024 Orders Only [facility] [address] [place] [phone] Luis Venegas MD 09/23/2024 Orders Only [facility] [address] [place] [phone] Luis Venegas MD 08/03/2024 Results Follow-Up [facility] [address] [phone] Luis Venegas MD Dexa Axial Skeleton Bone Density 1 or 2 Site 08/01/2024 2:28 PM LAST CODE STRIPER - 08/01/2024 11:59 PM LAST CODE STRIPER Hospital Encounter [facility] Radiology at the [address] [address] Age-related osteoporosis without current pathological fracture Discharge [...] Recent thyroid labs reviewed Age-related osteoporosis wit aidaut current pathological fracture 11/15/2023 Assessment & Plan (11/15/2023 10:19 AM CDT): Refill Boniva and check DEXA Paroxysmal atrial fibrillation 09/20/2023 Assessment & Plan (11/15/2023 10:19 AM CDT): Status post ablation so far doing well remains on anticoagulation and amiodarone at this time recent thyroid labs reviewed Screen for colon cancer 12/21/2017 Overview (12/21/2017): Added automatically from request for surgery [id number] Immunizations Immunization Administration Dates Next Due COVID-19 [...] on file Legal Sex Female 8:36 PM LAST CODE STRIPER Gender Identity Female 01/22/2024 8:14 PM CDT Sexual Orientation Choose not to disclose 2023 8:14 PM CDT Last Filed Vital Signs Vital Sign Reading Time Taken Comments Blood Pressure 122/74 05/23/2024 11:09 AM LAST CODE STRIPER Pulse 80 05/23/2024 10:45 AM LAST CODE STRIPER Temperature 36.4 C (97.6 F) 03/01/2018 2:19 PM CDT Respiratory Rate 16 12/31/2017 11:40 AM CDT Oxygen Saturation 98% 09/20/2023 3:05 PM CDT Inhaled Oxygen Concentration - - Weight 53.5 kg (118 lb) 05/23/2024 10:45 AM LAST CODE STRIPER Height 170.2 cm (5' 7 ) 05/23/2024 10:45 AM LAST CODE STRIPER Body Mass Index 18.48 05/23/2024 10:45 AM LAST CODE STRIPER Plan of Treatment Not on file Procedures Procedure Name Priority Date/Time Associated Diagnosis Comments CARDIOLOGY DOCUMENT SCAN 10/07/2024 8:13 PM CDT SCAN - LABS 09/26/2024 6:54 AM CDT SCAN - LABS 09/25/2024 8:41 AM CDT SCAN - LABS 09/23/2024 5:00 PM CDT DEXA AXIAL SKELETON BONE DENSITY 1 OR MORE SITES Schedule Routine, Read Routine (OP Routine) 08/01/2024 2:53 PM LAST CODE STRIPER Age-related osteoporosis without current pathological fracture SCREENING MAMMOGRAM BILATERAL W HAYES Schedule Routine, Read Routine (OP Routine) 03/03/2024 2:06 PM CDT Screening mammogram, encounter for COLONOSCOPY 12/31/2017 11:09 AM CDT from Last 3 Months or Most Recently Relevant to Health Maintenance Results * Cardiology Document Scan (10/07/2024 8:13 PM CDT) Anatomical Region Laterality Modality Other us Luis Venegas MD CV CARDIAC SERVICES PROCEDURE S Final Result * SCAN - LABS (09/26/2024 6:54 AM CDT) us Luis Venegas MD Final Result * SCAN - LABS (09/25/2024 8:41 AM CDT) us Luis Venegas MD Final Result * SCAN - LABS (09/23/2024 5:00 PM CDT) us Luis Venegas MD Final Result * Dexa Axial Skeleton Bone Density 1 or 2 Site (08/01/2024 2:53 PM LAST CODE STRIPER) Anatomical Region Laterality Modality Body N/A Digital Radiogra phy 08/01/2024 3:00 PM LAST CODE STRIPER Impressions 08/01/2024 4:14 PM LAST CODE STRIPER 1. The bone mineral density of the [...] Javier Vera M.D. Narrative 08/01/2024 4:14 PM LAST CODE STRIPER BONE DENSITOMETRY OF THE SPINE AND HIP [...] compared to prior imaging studies performed at [facility] on 01/21/2021, 03/07/2022 and 03/02/2023. The breasts [...] compared to prior imaging studies performed at [facility] on 01/21/2021, 03/07/2022 and 03/02/2023. The breasts [...] Female Attending MD: Diana Rodriguez MD,PHD Room: [place] [address] Note Status: Finalized Procedure Date No Time: [...] Thescope was passed under direct vision. The [id number] introduced through the anus and advanced to the the terminal ileum. The colonoscopy was performed without difficulty. The patient tolerated the procedure well.The quality of the bowel preparation was good. The qualityof the bowel preparation was evaluated using the BBPS([place] Bowel Preparation Scale) with scores of: Right [...] Relevant to Health Maintenance Insurance [employer] MEDICARE [facility] MEDICARE ADVANTAGE [facility] MEDICARE Address: [address] [address] [place] [address] [facility] MEDICARE Advance Directives For more information, please contact: [phone] Documents on File Type Date Recorded Patient Baby Registry Sales Consultant Expl anation ADVANCE DIRECTIVE 03/01/2018 12:00 AM ZULEYMA R OF CRITICAL CARE PHYSICIAN FINANCIAL/MEDICAL * Full Code (Latest Code Status on File) Date Activated Date Inactivated Comments 12/31/2017 10:48 AM 12/31/2017 2:01 PM Care Teams Whitewater Rafting Guide Relationship Specialty Start Date End Date Luis Venegas MD PCP - General Internal Medicine 11/13/22
--- OUTSIDE RECORDS SUMMARY | 2024-10-14 00:20 | XMS_ITS | Clinical Summary ---
Author Organization [facility] Address [address] [place] [address] Care Team Providers Care Junior Java Developer Name Role Phone Luis Venegas MD Primary Care Provider [phone] Allergies Active Allergy Reactions Criticality Noted Date [...] (12/21/2017): Added automatically from request for surgery [id number] Encounters Date Type Department Care Team Description 10/07/[address] [facility] [address] [facility] [address] [phone] Luis Venegas MD 09/26/2024 Orders Only [facility] [address] [phone] Luis Venegas MD 09/25/2024 Orders Only [facility] [address] [phone] Luis Venegas MD 09/23/2024 Orders Only [facility] [address] [phone] Luis Venegas MD 08/03/2024 Results Follow-Up [facility] [address] [place] [phone] Luis Venegas MD Dexa Axial Skeleton Bone Density 1 or 2 Site 08/01/2024 2:28 PM CREDIT PROFESSIONAL - 08/01/2024 11:59 PM CREDIT PROFESSIONAL Hospital Encounter [facility] Radiology at the [address] [address] Age-related osteoporosis without current pathological fracture Discharge [...] 03/23/2020,01/18/2020 Surgical History Surgery Date Site/Laterality Comments NV RPR 1ST FEM HRNA ANY AGE REDUCIBLE [...] on file Legal Sex Female 8:36 PM CREDIT PROFESSIONAL Gender Identity Female 01/22/2024 8:14 PM CDT Sexual Orientation Choose not to disclose 2023 8:14 PM CDT Obstetrics History Last Filed Vital Signs Vital Sign Reading Time Taken Comments Blood Pressure 122/74 05/23/2024 11:09 AM CREDIT PROFESSIONAL Pulse 80 05/23/2024 10:45 AM CREDIT PROFESSIONAL Temperature 36.4 C (97.6 F) 03/01/2018 2:19 PM CDT Respiratory Rate 16 12/31/2017 11:40 AM CDT Oxygen Saturation 98% 09/20/2023 3:05 PM CDT Inhaled Oxygen Concentration - - Weight 53.5 kg (118 lb) 05/23/2024 10:45 AM CREDIT PROFESSIONAL Height 170.2 cm (5' 7 ) 05/23/2024 10:45 AM CREDIT PROFESSIONAL Body Mass Index 18.48 05/23/2024 10:45 AM CREDIT PROFESSIONAL Plan of Treatment Health Maintenance Due Date Last Done Comments Hepatitis C Screening 1950 DTaP/Tdap/Td Vaccine (1 - Tdap) 1961 Hepatitis B Screening 02/27/1968 Covid-19 Vaccine (2023-2 5 season) 2024 03/01/2023, 09/16/2022, 04/23/2022, Additional [...] Discontinued 12/31/2017 Colon Cancer Screening-DNA Stool Discontinued 08/06/20 18 Colon Cancer Screening-FIT Discontinued 12/31/2017 Colon [...] Read Routine (OP Routine) 08/01/2024 2:53 PM CREDIT PROFESSIONAL Age-related osteoporosis without current pathological fracture SCREENING [...] 1 or 2 Site (08/01/2024 2:53 PM CREDIT PROFESSIONAL) Anatomical Region Laterality Modality Body N/A Digital Radiogra phy 08/01/2024 3:00 PM CREDIT PROFESSIONAL Impressions 08/01/2024 4:14 PM CREDIT PROFESSIONAL 1. The bone mineral density of the [...] Javier Vera M.D. Narrative 08/01/2024 4:14 PM CREDIT PROFESSIONAL BONE DENSITOMETRY OF THE SPINE AND HIP [...] Hip (Left) 0.702 -2.0 -0.2 Procedure Note CumbyJavier MD - 08/01/2024 BONE DENSITOMETRY OF THE [...] compared to prior imaging studies performed at [facility] on 01/21/2021, 03/07/2022 and 03/02/2023. The breasts [...] compared to prior imaging studies performed at [facility] on 01/21/2021, 03/07/2022 and 03/02/2023. The breasts are extremely dense, which lowers the sensitivity of mammography. There is no suspicious abnormality in either breast. Impression: There is no mammographic evidence of malignancy. Annual screening mammography is recommended. Consider breast MRI for supplemental screening given the patient's extremely dense breasttissue. OVERALL FINAL ASSESSMENT: BI-RADS CATEGORY 1: Negative. Self Screening Mammogram IMG MAMMO PROCEDURES Fi nal Result * COLONOSCOPY (12/31/2017 11:09 AM CDT) Anatomical Region Laterality Modality Other Narrative Procedure Note Diana Rodriguez MD PhD - 12/31/2017 11:09 AM CDT ENDOSCOPY LAB Patient Name: Fide Cueto Procedure Date: 12/31/2017 11:09 AM Date of : 1950 Admit Type: Outpatient Age: 67 Gender: Female Attending MD: Diana Rodriguez MD,PHD Room: [place] [address] Note Status: Finalized Procedure Date No Time: [...] Thescope was passed under direct vision. The [id number] introduced through the anus and advanced to the the terminal ileum. The colonoscopy was performed without difficulty. The patient tolerated the procedure well.The quality of the bowel preparation was good. The qualityof the bowel preparation was evaluated using the BBPS([place] Bowel Preparation Scale) with scores of: Right [...] performed the entire procedure. Electronically signed by Daina Rodriguez MD. Diana Rodriguez MD, PHD 12/31/2017 11:31:53 AM Number of Addenda: 0 Note Initiated On: 12/31/2017 11:09 AM Diana Rodriguez MD PhD ENDOSCOPY PROCEDURES Johanny l Result from Last 3 Months or Most Recently Relevant to Health Maintenance Insurance [facility] MEDICARE [facility] MEDICARE ADVANTAGE [facility] Address: [address] [address] [place] [address] AET MEDICARE AET MEDICARE Advance Directives For more information, please contact: [phone] Documents on File Type Date Recorded Patient French Pastry Cook Expl anation ADVANCE DIRECTIVE 03/01/2018 12:00 AM ZULEYMA R OF GOVERNMENT TEACHER FINANCIAL/MEDICAL * Full Code (Latest Code Status on File) Date Activated Date Inactivated Comments 12/31/2017 10:48 AM 12/31/2017 2:01 PM Care Teams Junior Java Developer Relationship Specialty Start Date End Date Luis Venegas MD PCP - General Internal Medicine 11/13/22
--- OUTSIDE RECORDS SUMMARY | 2024-10-14 00:20 | XMS_ITS | Encounter Summary ---
Author Organization [facility] Healthcare Address [address] [place] [address] Care Team Providers Care Track Helper Name Role Phone Dorian Hill MD Primary Care Provider + Aldair Buchanan MD Primary Care Provider [phone] Luis Venegas MD Primary Care Provider [phone] Encounter Details Date Type Department Care Team (Late st Contact Info) Description 01/21/2020 Telephone [facility] [address] [phone] Viki Dinero, RT Social History Tobacco Use Types Packs/Day Years Used Date Smoking Tobacco: Never Smokeless Tobacco: Never Alcohol Use Standard Drinks/Week Comments Yes 7 (1 standard drink = 0.6 oz pur e alcohol) Comments No Sex and Gender Information Value Date Recorded Sex Assigned at Not on file Legal Sex Female 8:36 PM SURVEY WORKER Gender Identity Female 01/22/2024 8:14 PM CDT Sexual Orientation Choose not to disclose 2023 8:14 PM CDT documented as of this encounter Plan of Treatment Not on file documented as of this encounter Visit Diagnoses Not on filedocumented in this encounter Care Teams Track Helper Relationship Specialty Start Date End Date Dorian Hill MD [address] [address] PCP - General 01/03/17 12/29/21 Aldair Buchanan MD [facility] [place] [address] PCP - General Family Medicine 12/30/21 11/12/22 Luis Venegas MD [facility] [place] [address] PCP - General Internal Medicine 11/13/22 documented as of this encounter
--- OUTSIDE RECORDS SUMMARY | 2024-10-14 00:20 | XMS_ITS | Data Portability ---
Author Organization [place] [facility], Main Office Address [address] [place] [address] Care Team Providers Care Berry Grower Name Role Phone SOHAIL SHIN Primary Care Provider [phone] SOHAIL SHIN Referring Provider Assessment Encounter Date [...] with more than half of this in hikz-sn-gxmx conversation Not available 08/18/2022 12:13:43 06/13/2023 06/13/2023 [...] treatment patient more than half of this kozw-uz-uszo conversation Not available 06/13/2023 16:38:17 09/12/2023 09/12/2023 [...] DO Not Attach Compendium, Do Not Delete/merge, [id number] 4 14:56:02 injection/a spiration joint/bursa (PROC) - in office procedure, administere d by provider 2023 024 In-Office Order, Internal Use Only DO Not Attach Compendium DO Not Attach Compendium, Do Not Delete/merge, [id number] 4 15:53:30 injection/a spiration joint/bursa (PROC) - in office procedure, administere d by provider 2022 023 [email or web address] In-Office Order, Internal Use Only DO Not Attach Compendium DO Not Attach Compendium, Do Not Delete/merge, [id number] 3 12:10:37 Surgeries None recorded. Imaging XR, knee 2023 024 [email or web address] [facility] [place], [facility], [place], [address], 4 14:42:37 Medication Orders bupivacaine HCl 0.5 % (5 mg/mL) injection solution 2023 024 [facility]68117, [address] [facility], [place], [place], [id number], 4 15:48:29 Kenalog 10 mg/mL suspension for injection 2023 024 [facility] #96842, [address] [place], [id number], 4 15:48:29 Kenalog 10 mg/mL suspension for injection [address] [facility]65069, [address] [place], [place], [id number], 4 16:34:32 ropivacaine (PF) 5 mg/mL (0.5 %) injection solution [address] [facility]76715, [address] [place], [place], [id number], 4 16:34:32 Kenalog 10 mg/mL suspension for injection [address] [facility]49805, [address] [place], [place], [id number], 3 13:34:52 ropivacaine (PF) 5 mg/mL (0.5 %) injection solution [address] [facility]83651, [address] [place], [place], [id number], 3 13:34:52 Patient TargetsNo targets recorded. Patient InstructionsNo instructions recorded. Reason for Referral None Reported. Results Created Date Observation Date Name Description Value Unit Range Abnormal Flag Note LastModifiedBy Organization Detail LastModifiedTime 03/09/20 22 03/07/2022 MAMMO , scree cecilia, bilat eral No observ ation record ed. [id number] [facility] [place] [address], [place], [address], 07/26/2022 22:08:42 04/10/20 22 04/10/2022 elect teresa bernal am ne ECG, 12 leads min No observ ation record ed. [id number] Not Available 07/26/2022 22:08:42 04/24/20 22 XR, knee No observ ation record ed. [id number] [facility] [place] [address], [place], [address], 07/26/2022 22:08:42 06/09/19 23 06/08/2022 DEXA No observ ation record ed. [id number] [facility] (Imaging) [address], [place], [address], 07/26/2022 22:08:42 06/13/19 24 XR, knee No observ ation record ed. [facility] [address], [place], [address], 06/13/2023 16:36:18 02/20/20 24 02/20/2024 MRI, lumba r spine , w/wo contr ast No observ ation record ed. [email or web address] [facility] [address] [facility] [address], [place], [address], 02/20/2024 13:52:56 Result Notes None recorded. Problems Name Problem SNOMED Code Status Onset Date Resolution Date Notes Provider Name and Address Organization Details Recorded Time Hypothyroi dism 67301689 Active 2019 Not Available [facility] 3 22:07:18 Pain of left knee joint 8086473699864 07 Active 2021 Not Available [facility] 3 22:07:18 Osteoporos is 85688998 Active 2022 Aldair Buchanan MD [address] [place] [address], [place], [address] , [facility] 3 08:45:04 Problem Notes None recorded. Procedures Surgical History Date Name Laterality Status Provider Name and Address Organization Details Recorded Time Carpal tunnel completed Not Available [facility] 07/26/2022 22:06:27 Imaging Results Imaging Date Name Status LastModified by Organiz ation Details LastModified Time 06/08/2022 DEXA completed [id number] [facility] (Im[facility]) [address], [place], [address], 07/26/2022 22:08:42 04/10/2022 electrocardiog yady, routine ECG, 12 leads min completed [id number] Information not available 07/26/2022 22:08:42 04/24/2022 XR, knee completed [id number] 30 026 [facility] [place] [address], [place], [address], 07/26/2022 22:08:42 03/07/2022 MAMMO, screening, bilateral completed [id number] 026 [facility] [address], [place], [address], 07/26/2022 22:08:42 06/13/2023 XR, knee completed [facility] [address], [place], [address], 06/13/2023 16:36:18 02/20/2024 MRI, lumbar spine, w/wo contrast completed [address] [facility] [address] [facility] [address], [place], [address], 02/20/2024 13:52:56 Procedure Notes None recorded. Medical [...] 20 mg by injection route. 2023 active [facility] [place]: [phone] Not Available Not Available Not Available metoprolol tartrate 50 mg tablet active Not Available Not Available No t Available diltiazem 30 mg tablet Take 1 tablet 3 times a day by oral route. active Not Available Not Available No t Available diltiazem 60 mg tablet active Not Available Not Available Not Available neomycin 3.5 mg/g-polymy tsefania B 10,000 unit/g-dexa meth 0.1 % eye [...] % 97 % 86 /min 96.8 [degF] 42668.9 4 g 156 mm[Hg] 80 mm[Hg] Not Available [facility] 22:06:35 Date Recorded Body mass index (BMI) Body height Body weight Provider Name and Address Organization Details Last Updated DateTime 04/24/2022 19.3 kg/m2 165.1 cm 44191.71 g Not Available Pending sale to [facility] 07/26/2022 22:06:36 Date Recorded Body height Provider Name an d Address Organization Details Last Updated DateTime 08/18/2022 165.1 cm ALYSSA Atkins [employer] [facility] 08/18/2022 11:09:47 Date Recorded Body height Body mass index (BMI) Body weight Provider Name and Address Organization Details Last Updated DateTime 06/13/2023 165.1 cm 19.6 kg/m2 83823.9 g ALYSSA Atkins [employer] 06/13/2023 15:30:00 Date Recorded Body height Provider Name an d Address Organization Details Last Updated DateTime 09/12/2023 165.1 cm Zoila Mckinney [employer] [facility] 09/12/2023 14:53:04 Social History Question Answer Notes LastModified by Organizat ion Details LastModified Time Tobacco Smoking Status Never Smoker Not Available [facility] 07/26/2022 22:06:06 What Is Your Level Of Caffeine Consumption? Occasional [id number] Information not available 07/26/2022 In The 14 Days Before Symptom Onset, Have You Had Close Contact With A Laboratory-confirm ed COVID-19 While That Case Was Ill? No [id number].[id number] Information not available 07/26/2022 In The 14 Days Before Symptom Onset, Have You Had Close Contact With A Person Who Is Under Investigation For COVID-19 While That Person Was Ill? No MIGRATION.[id number] 0730 Information not available 07/26/2022 What Type Of Diet Are You Following? REGULAR MIGRATION.199026 1374 Information not available 07/26/2022 Has Tobacco Cessation Counseling Been Provided? No MIGRATION.900512 8152 Information not available 07/26/2022 Do You Have Any Dietary Restrictions? No MIGRATION.[id number] 8667 Information not available 07/26/2022 Sex: Unknown Functional Status Question Answer Note LastModified by Organizat ion Details LastModified Time Do you use any illicit or recreational drugs? No [id number].[id number] 26 Information not available 07/26/2022 Do you or have you ever used any other forms of tobacco or nicotine? No MIGRATION.[id number] 26 Information not available 07/26/2022 What is your level of alcohol consumption? None [id number].[id number] 26 Information not available 07/26/2022 What is your exercise level? Moderate [id number].[id number] 26 Information not available 07/26/2022 Mental Status None recorded. Family History Relationship Description Onset Age of this Age Resolved Age Notes LastModified by Organization Details LastModified Time Father Hypertensive disorder [id number] Not available 07/26/2022 22:06:28 Father Congestive heart failure [id number] Not available 07/26/2022 22:06:28 Mother Malignant neoplasm of ovary [id number] Not available 07/26/2022 22:06:28 Medical History Condition Response BLINDNESS N RHEUMATIC FEVER N KIDNEY STONES N BLADDER PROBLEMS N MRSA N OTHER # 1 N POLIO N LUNG DISEASE/DISORDER N RADIATION / CHEMOTHERAPY N COPD N Other # 2 N BLOOD DISEASES N SURGERY N EAR OR HEARING PROBLEMS N MUMPS N FEMALE PROBLEMS / INFECTIONS N BOWEL PROBLEMS N DEPRESSION (INCLUDING POST ) N STROKE/TIA [...] GLAUCOMA N FOOT PROBLEM N DIVERTICULITIS N SLEEP APNEA N CHICKENPOX N ALLERGIES/HAYFEVER N INFECTIOUS DISEASE N PROSTATE N HEART ARRHYTHMIA N INSOMNIA N HIGH CHOLESTEROL / HYPERLIPIDEMIA N EYE PROBLEMS N HYPERTHYROIDISM N EATING DISORDER N NEUROLOGICAL PROBLEMS N EDEMA N CHRONIC PAIN SYNDROME N HYPOTHYROIDISM N CONSTIPATION N CAROTID BLOCKAGE N BACK / NECK PROBLEMS N HAVE YOU BEEN HOSPITALIZED OR SEEN IN [facility] IN THE PAST YEAR ? N [...] DISORDER N ALZHEIMER'S DISEASE N PAIN N DEMENTIA N HERPES N SEIZURES/EPILEPSY N HEADACHES/MIGRAINES N VASCULAR DISEASE N PACEMAKER N DIZZINESS N HEART DISEASE/HEART PROBLEMS N KIDNEY DISEASE N SCARLET FEVER N MULTIPLE SCLEROSIS N DEVELOPMENTAL OR BEHAVIORAL DISORDERS N MENTAL DISORDER/ILLNESS N CANCER: SPECIFY N CARDIAC ARRHYTHMIA N PNEUMONIA N ATRIAL FIBRILLATION N Gall [...] 50 mcg/0.25mL dose 08/06/2020 completed Not Available [facility] 3 22:08:34 Past Encounters Encounter ID Performer Location Encounter Start Date Encounter Closed Date Diagnosis/Indication Diagnosis SNOMED-CT Code Diagnosis ICD10 Code Diagnosis Note [id number] Aldair Buchanan MD [facility]ar ansari [address] [place] [address] 08/19/2020 00:00:00 08/20/2020 05:48:10 [id number] Aldair Buchanan MD [facility] [address] 02/21/2021 00:00:00 02/21/2021 22:08:46 [id number] Aldair Buchanan MD [facility] [place] [address] 03/08/2022 00:00:00 05/24/2022 13:29:58 [id number] [facility] [address] [place] [address] [place] [address] 04/07/2022 00:00:00 04/10/2022 08:26:25 [id number] Balta Handley MD [facility] [address] [place] [address] 04/24/2022 00:00:00 04/24/2022 16:51:10 [id number] Balta Handley MD [facility] [place] [address] [place] [address] 08/18/2022 11:06:50 08/18/2022 12:19:04 Pain of left knee joint 8499500708 56532 M25.763 [id number] Balta Handley MD [facility] [place] [address] [place] [address] 06/13/2023 15:05:29 06/18/2023 14:42:37 Pain of left knee joint 5199653689 67377 M25.821 [id number] Fer Uribe MD [facility] [place] [address] [place] [address] 09/12/2023 14:49:27 09/12/2023 15:29:00 Pain of left knee joint 0640201082 53826 M25.562 Health Concerns Section Related Observation LastModified by Organization Detai ls LastModified Time None Recorded Concern Status LastModified by Organization Details LastModified Time None Recorded Advance Directives Directive None Recorded Payers Encounter Date Sequence Insurance Name Policy Number Policy Fontana Covered Member ID Fontana Member ID Guarantor Name 08/18/2022 1 [employer] (MEDICARE REPLACEMENT /ADVANTAGE - PPO) [id number] 1 Wilmetteelizabeth Golden [id number] Wilmetteelizabeth Golden 06/13/2023 1 [employer] (MEDICARE REPLACEMENT /ADVANTAGE - PPO) [id number] 1 Wilmetteelizabeth Golden [id number] [facility] 09/12/2023 1 [employer] (MEDICARE REPLACEMENT /ADVANTAGE - PPO) [id number] 1 [facility] [id number] [facility] OBGyn Episode No OBEpisode recorded.
[2024-10-14] MEDS: LACTATED RINGERS 1,000 ML 30 ML IV CONT ×2 (06:30→11:23)
[2024-10-14] MEDS: VANCOMYCIN 750 MG/NS 250 ML 750 MG/250 ML BAG 250 MG IVPB ×2 (06:40→18:31)
[2024-10-14] MEDS: ACETAMINOPHEN 500 MG TABLET 1000 MG PO (06:45)
[2024-10-14] MEDS: TRANEXAMIC ACID 1,000MG/ISO100 1,000 MG/100 ML BAG 200 MG IVPB (07:00)
--- NOTE | 2024-10-14 07:06 | WPDHPUPDATE1 ---
History and Physical Update Update Date/Time: 10/14/24 07:06 History and Physical has been reviewed, including an updated exam of the patient. There are NO changes in the patient's condition. Risks, benefits, and alternatives have been discussed and questions answered. Patient agrees to proceed with procedure.
--- NOTE | 2024-10-14 07:21 | P.PNAN_ITS ---
Anes - Initial Pre Proc Eval Procedure: Operation Date: 10/14/24 07:30 Proposed Procedures p Left Total Knee Arthroplasty - Balta Handley MD Date/Time: 10/14/24 07:21 Surgeon: Balta Handley MD Pre Op Diagnosis: OA left knee Patient Data Age: 74 Gender: F Height: 1.65 m Weight: 53.4 kg Last Vital Signs Temp 97.2 F L 09/23/24 14:39 Pulse 73 09/23/24 14:39 Resp 16 09/23/24 14:39 BP 125/67 09/23/24 14:39 Pulse Ox 99 09/23/24 14:39 O2 Del Method Room Air 09/23/24 14:39 Allergies Allergy/AdvReac Type Severity Reaction Status Date / Time diltiazem AdvReac Intermediate Difficulty Verified 09/23/24 14:18 Breathing Home Medications ?Medication ?Instructions ?Recorded ?Confirmed ?Type apixaban 5 mg tablet (Eliquis) 5 mg PO Q12H 12/26/23 09/23/24 History ibandronate 150 mg tablet 150 mg PO MONTHLY 12/26/23 09/23/24 History levothyroxine 100 mcg tablet 100 mcg PO QAM 12/26/23 09/23/24 History metoprolol succinate 25 mg 25 mg PO HS 07/30/24 09/23/24 History tablet,extended release 24 hr Juice Plus 1 cap PO BID 09/23/24 09/23/24 History acetaminophen 650 mg 1,300 mg PO Q12H PRN pain 09/23/24 09/23/24 History tablet,extended release (8 Hour Pain Reliever) ascorbic acid (vitamin C) 1,000 mg 1 g PO BID 09/23/24 09/23/24 History capsule calcium carbonate 600 mg PO DAILY 09/23/24 09/23/24 History cholecalciferol (vitamin D3) 50 2,000 unit PO BID 09/23/24 09/23/24 History mcg (2,000 unit) capsule ferrous sulfate 325 mg (65 mg 325 mg PO DAILY 09/23/24 09/23/24 History iron) tablet (Feosol) glucosamine HCl 1,500 mg tablet 1,500 mg PO BID 09/23/24 09/23/24 History lactobacillus combination no.4 3 3,000 mmu cells PO DAILY 09/23/24 09/23/24 History billion cell capsule (Probiotic) magnesium oxide 400 mg PO BID 09/23/24 09/23/24 History omega-3 acid ethyl esters 1 cap PO BID 09/23/24 09/23/24 History turmeric 500 mg PO BID 09/23/24 09/23/24 History vitamin E 268 mg (400 unit) capsule 268 mg PO DAILY 09/23/24 09/23/24 History Laboratory Tests 10/14/24 06:32 Blood Type Pending Antibody Screen Pending Patient hx anesthesia problems: post op nausea/vomiting Family hx anesthesia problems: none Results Review: All pre-operative results and documents have been reviewed as part of the pre- operative evaluation. [facility] Past Medical History Medical History Hypertension Surgical History Surgical History H/O prior ablation treatment Family History Family History Father No problems noted. Mother No problems noted. Sibling No problems noted. Social History Social History (Updated 07/30/24 @ 13:49 by Natalie Manning CMA) Smoking status: Never smoker Second hand tobacco smoke exposure: Yes Alcohol intake: current Drinks per week: 7 Alcohol use details: Occasional Substance use: never Substance use type: does not use Current Housing: Decline to Answer Concerned About Future Housing: Decline to Answer Difficulty Paying Gas/Electric Bills: Decline to Answer Difficulty Paying for Meds: Decline to Answer Currently Unemployed: Decline to Answer Education: Decline to Answer Difficulty w/ Childcare or Family Care: Decline to Answer Living arrangements: with family Additional living arrangements comments: [place] 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 Informed Consent: The patient's anesthetic plan and its attendant risks and benefits were discussed with the patient/family/POA. Questions were solicited and answers provided to the satisfaction of the patient/family/POA.
[2024-10-14] MEDS: ceFAZolin 2 GM/D5W 50 ML 2 GM/50 ML BAG IVPB (07:30)
[2024-10-14] MEDS: SODIUM CHLORIDE 0.9% IV 37.7 ML, MORPHINE SULFATE INJ (*CRX) 2 MG, ROPivacaine HCL 1% 2... INFILTRATE (08:09)
[2024-10-14] MEDS: ceFAZolin SODIUM 1 GM VIAL 3 GM (08:10)
[2024-10-14] MEDS: GENTAMICIN BONE CEMENT REFOBACIN 1 EACH TOPICAL (10:18)
[2024-10-14] MEDS: KETOROLAC 15 MG/ML VIAL (*BKC) IV PUSH (10:35)
[2024-10-14] MEDS: TRANEXAMIC ACID 1,000 MG/10 ML AMPUL 1000 MG IV PUSH (10:39)
[2024-10-14] MEDS: ceFAZolin SODIUM 1 GM VIAL IV PUSH (10:39)
--- NOTE | 2024-10-14 11:23 | W.PM.PROC2 ---
Procedure Note - Detailed Date of Procedure 10/14/24 Pre-op Diagnosis OA left knee Post-op Diagnosis Same Procedure Performed Left total knee replacement Surgeon Balta Handley MD Inventory Control Assistant [facility] Anesthesia General Description of Procedure Patient was brought to the operating room and general anesthesia was administered left knee prepped draped usual fashion. She received 2 g of Ancef weight based vancomycin 1 g vanc TXA preoperatively. Limb was exsanguinated tourniquet elevated to 250 mmHg. A 7 in longitudinal incision was made in the vastus medialis splitting approach utilized. The muscle was split at the level of the superior pole the patella. Partial excision of infrapatellar fat pad was performed. The quadriceps synovectomy carried out suprapatellar fat pad excised. The patella had some hypertrophic spurring superiorly and osteophytes removed. There was no deformittyt. Higher grade cartilage loss along the medial facet. Normal cartilage laterally. I felt it was suitable for non resurfacing. A conservative lateral facetectomy was performed. A guide eliazar was inserted on femoral canal after aspiration of canal contents using the 5 degree valgus cutting bushing 9 mm of bone removed the distal femur. This removed 9 laterally. Medially it removed only about 5 or 6 mm due to wear medially. Next the tibial plateau was cut. A smalll amount of posteromedial defect remained after this cut. The PCL was recessed and meniscal remnants excised. In flexion we are too tight still medially and laterally. Therefore an additional 2 mm of bone removed from the tibial plateau at this time. With this done and the cut made at 1 degree of varus and perpendicular to the axis of the tibia and sagittal plane we had a tight 8 mm space at 90? medially a tight 12 mm laterally. The femoral sizing guide was applied at 5? of external rotation which matched Whitesides line. Femoral sizing guide was applied to the distal femur. The 65 was going to notch so we cut with the 67.5 which was a little bit too wide. The tibia was sized to a 67 which fit line to line anteromedial to posterolateral. Seventy-one was not going to give us proper rotation. This was punched. On trialing we were still far too tight medially well, especially in extension. The medial and posteromedial tibial osteophyte was carefully removed at this time feeling of capsule off the bone to expose the osteophyte. Posterior femoral osteophyte was removed. With this we trialed again with the 10 insert and we were too tight laterally and degrees. We needed to downsize the femur and we applied a slight degree of flexion the distal femoral cut and internally rotated the 65 cutting block by removing the lateral posterior referencing pin and translated, block 1 mm anteriorly on the lateral side and pinning it in this position. HP and chamfer cuts were revisited. On read trialing, the soft tissue tension at 90? laterally with the 10 insert was much better allowing 3 or 4 mm of anterior drawer. The popliteus tendon tended to catch on a posterolateral femoral osteophytes as we would extend the knee from a flexed position on we carefully his knee to the lateral posterolateral margin of the lateral femoral condyle which eliminated this catching. We had release the posterior capsule from just inferior already and on trialing now with the 10 insert AP stability was appropriate with the medial side 90? opening 2 mm of lateral side 1 mm gravity flexion to 140? with no anterior table machine operator full flexion and a barely positive bounce extension with the extensor mechanism approximated with towel clips, with no play medially and 3 mm of opening laterally. Therefore, an additional mm of bone was removed from the distal surface of the medial femoral condyle. This was transitioned across the the center of the distal femur changing the distal femoral valgus alignment to 4? confirmed with the 4 degree wing and intramedullary eliazar. On read trialing the knee came out to full extension with negative bounce even with the extensor mechanism approximated with towel clips with 1 mm of medial opening in 3mm lateral opening and excellent stability in all positions gravity flexion 140 and central patellar tracking. Lug holes for the femoral component were drilled. We put the tourniquet down earlier at 90 minutes at this point the limb was exsanguinated and tourniquet re elevated. The bony surfaces were thoroughly irrigated and dried. Using 2 batches of methylmethacrylate 1 with gentamicin powder the cement was immediately applied to the 67 vanguard tibial tray and then the size 65 left CR femoral component. Cement applied the tibial plateau pressurized tibial component fully seated cement applied the femur and the femoral component fully seated the knee brought into extension with 11 mm 5 and 1 insert for pressurization. Tourniquet was released total tourniquet time 105 minutes. After cement hardening excess cement was sought for and removed and hemostasis was achieved. We trialed with the 10 insert and I was range of motion 0-140 degrees central patellar tracking and the same stability findings mentioned above. The real 10 insert was placed a locking pin range of motion stability patellar tracking reconfirmed. Local anesthetic cocktail was injected into the periarticular soft tissues. Arthrotomy closed with 2. Vicryl and 1. Unidirectional barbed Stratafix suture. The split closed with 1. Vicryl. Skin closed with 2 subcutaneous Vicryl 3-0 subcuticular Monocryl and glue EBL was 250 cc. Two additional g of Ancef 1 g of TXA given time wound closure. There were no complications she was transferred postop recovery room in stable condition. [facility] Billing Surgery - Charge Forward: Surgery Billing (Left total knee replacement)
--- NOTE | 2024-10-14 11:33 | PM.OP ---
Procedure Note - Brief Procedure Note - Brief Date of procedure: 10/14/24 OA left knee Procedure performed: Left total knee arthroplasty Surgeon: POLO Marshall Description of procedure: [age] year old female went left total knee arthroplasty on 10/14. I was involved in the procedure including positioning the patient on the OR table in 1st assisting through the time of surgery. Total time spent was 3-1/2 hours
--- NOTE | 2024-10-14 13:10 | ADMGEN ---
This patient, Fide Cueto, was admitted to -. Patient/family oriented to hospital policies and general routines including ID bracelet, bed and alarms, visiting hours, pain management, procedures, bathroom and other care routines, personal items, smoking policy, room service/diet, and visiting hours. Information on how to activate the Rapid Response Team has been discussed. Patient/Family are encouraged to report perceived risks to care and to ask questions if they do not understand what they are told or what they should do.
[2024-10-14] MEDS: SODIUM CHLORIDE 0.9% IV 1,000 ML 125 ML IV CONT (13:51)
[2024-10-14] MEDS: ACETAMINOPHEN 325 MG TABLET 650 MG PO ×3 (13:51→20:54)
[2024-10-14] MEDS: ceFAZolin 1 GM/NS 50 ML 1 GM/50 ML BAG IVPB ×2 (15:00→23:55)
--- NOTE | 2024-10-14 15:19 | PM.IMCN ---
Assessment and Plan Assessment and plan (1) Left knee DJD: Qualifiers: Osteoarthritis type: primary Qualified Code(s): M17.12 - Unilateral primary osteoarthritis, left knee Code(s): M17.12 - Unilateral primary osteoarthritis, left knee Status: Acute Assessment and Plan: - ambulate with assistance and up to chair - use IS - neurovasc checks - see order for intervals - SCDs - analgesics and antiemetics p.r.n. - monitor labs in AM - CBC and BMP - bowel regimen: docusate/senna, polyethylene glycol - PT/OT eval and treat - restart Eliquis on 10/15 (2) Hypothyroidism: Qualifiers: Hypothyroidism type: unspecified Qualified Code(s): E03.9 - Hypothyroidism, unspecified Code(s): E03.9 - Hypothyroidism, unspecified Status: Acute Assessment and Plan: - continue home levothyroxine 100 mcg daily (3) Atrial fibrillation and flutter: Code(s): I48.91 - Unspecified atrial fibrillation; I48.92 - Unspecified atrial flutter Status: Acute Assessment and Plan: - continue metoprolol ER 25 mg hs - Eliquis to be resumed on 10/15 (4) Hypertension: Qualifiers: Hypertension type: primary hypertension Qualified Code(s): I10 - Essential (primary) hypertension Code(s): I10 - Essential (primary) hypertension Status: Acute Assessment and Plan: - chronic, currently 116/58 - continue home medications: Metoprolol - monitor Plan Diet: Regular GI Prophylaxis: Famotidine DVT Prophylaxis: SCDs, Eliquis IV fluids: NS 125 mL/hour x8 hours Lines/Tubes: Peripheral IV Code Status: Full code HPI Date of Consult Consult date: 10/14/24 Requesting Physician: Balta Handley MD Primary Care Provider: Luis Venegas, Consult Narrative Reason for consult: Medical Management Narrative: 74 y/o F with PMH of HTN, osteoarthritis, atrial fibrillation/flutter, and hypothyroidism presents here for a total left knee replacement. The patient presents here today for a left total knee arthroplasty. Prior to surgery she reportedly had pain to her left knee for the past few years. She has previously failed conservative treatment including cortisone injection and she is not currently a candidate for anti-inflammatories as she is on Eliquis due to atrial flutter history. Last cortisone injection was in March of 2024, she reports no relief with this injection. Pain now interfering with her everyday activities. These factors led the patient to proceed with surgical management. Postop she is reporting no complaints. She denies any recent changes to her home history or home medications. Preop VS: 97.2, HR 73, RR 16, 125/67, and 99% on RA. Preop workup: No leukocytosis, hemoglobin 11.3, sodium 136, creatinine 0.71 and GFR >60, A1c 5.4%. Review of Systems Review of Systems: All systems reviewed & are unremarkable except as noted in HPI and below PMFSH Past Medical History Medical History (Updated 10/14/24 @ 15:42 by Evelina Phillips APRN) Hypothyroidism Postmenopausal Osteoarthritis Atrial fibrillation and flutter Hypertension Surgical History Surgical History History of cataract extraction with lens replacement History of inguinal hernia repair H/O prior ablation treatment Family History Family History Father No problems noted. Mother No problems noted. Sibling No problems noted. Social History Social History Smoking status: Never smoker Second hand tobacco smoke exposure: Yes Alcohol intake: current Drinks per week: 7 Alcohol use details: Occasional Substance use: never Substance use type: does not use Do You Feel Safe in your Home?: Yes Lack of Transportation: No Lack of Food: Never True Current Housing: Decline to Answer Concerned About Future Housing: Decline to Answer Difficulty Paying Gas/Electric Bills: Decline to Answer Difficulty Paying for Meds: Decline to Answer Currently Unemployed: Decline to Answer Education: Decline to Answer Difficulty w/ Childcare or Family Care: Decline to Answer Living arrangements: with family Additional living arrangements comments: [facility] 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 Gender identity (if verbalized by the patient): Female Spiritual care concerns: No Meds Home Medications and Allergies Home Medications ?Medication ?Instructions ?Recorded ?Confirmed ?Type apixaban 5 mg tablet (Eliquis) 5 mg PO Q12H 12/26/23 10/14/24 History ibandronate 150 mg tablet 150 mg PO MONTHLY 12/26/23 09/23/24 History levothyroxine 100 mcg tablet 100 mcg PO QAM 12/26/23 10/14/24 History metoprolol succinate 25 mg 25 mg PO HS 07/30/24 10/14/24 History tablet,extended release 24 hr Juice Plus 1 cap PO BID 09/23/24 10/14/24 History acetaminophen 650 mg 1,300 mg PO Q12H PRN pain 09/23/24 09/23/24 History tablet,extended release (8 Hour Pain Reliever) ascorbic acid (vitamin C) 1,000 mg 1 g PO BID 09/23/24 10/14/24 History capsule calcium carbonate 600 mg PO DAILY 09/23/24 10/14/24 History cholecalciferol (vitamin D3) 50 2,000 unit PO BID 09/23/24 10/14/24 History mcg (2,000 unit) capsule ferrous sulfate 325 mg (65 mg 325 mg PO DAILY 09/23/24 10/14/24 History iron) tablet (Feosol) glucosamine HCl 1,500 mg tablet 1,500 mg PO BID 09/23/24 10/14/24 History lactobacillus combination no.4 3 3,000 mmu cells PO DAILY 09/23/24 10/14/24 History billion cell capsule (Probiotic) magnesium oxide 400 mg PO BID 09/23/24 10/14/24 History omega-3 acid ethyl esters 1 cap PO BID 09/23/24 10/14/24 History turmeric 500 mg PO BID 09/23/24 10/14/24 History vitamin E 268 mg (400 unit) capsule 268 mg PO DAILY 09/23/24 10/14/24 History Allergies Allergy/AdvReac Type Severity Reaction Status Date / Time diltiazem AdvReac Intermediate Difficulty Verified 10/14/24 07:36 Breathing Vital Signs Vital Signs - 24 hr 10/14/24 06:15 10/14/24 11:23 10/14/24 11:35 Temperature 97.5 F L 98.7 F Pulse Rate 67 82 80 Respiratory Rate 16 18 18 Blood Pressure 132/70 111/53 L 133/72 Pulse Oximetry 99 98 99 Oxygen Delivery Room Air Simple Face Mask Simple Face Mask Oxygen Flow Rate 8 8 10/14/24 11:50 10/14/24 12:05 10/14/24 12:20 Temperature Pulse Rate 82 80 80 Respiratory Rate 16 17 15 Blood Pressure 134/62 131/64 130/66 Pulse Oximetry 100 100 100 Oxygen Delivery Room Air Room Air Room Air Oxygen Flow Rate 10/14/24 12:45 10/14/24 13:50 10/14/24 14:05 Temperature 97.6 F 98.0 F Pulse Rate 82 79 Respiratory Rate 16 16 Blood Pressure 124/64 125/63 Pulse Oximetry 98 98 Oxygen Delivery Room Air Oxygen Flow Rate 10/14/24 14:35 Temperature 97.9 F Pulse Rate 76 Respiratory Rate 16 Blood Pressure 116/58 L Pulse Oximetry 97 Oxygen Delivery Oxygen Flow Rate Exam Const: General: comfortable and no acute distress Other: , female, nontoxic appearance HENMT: Face/Nose/Sinus: Normal nares present Mouth: Yes moist mucous membranes Resp: Effort & Inspection: normal respiratory effort Auscultation: clear to auscultation bilaterally Cardio: Rate: regular rate Rhythm: regular rhythm Skin: General skin exam: normal color and no rashes or lesions noted Other: Postoperative wound to left knee, dressing CDI. Neuro: Speech: normal speech Sensory Exam: normal sensation Other: A&O x4 Extrem: General: normal exam except as noted Psych: Mental Status: mental status grossly normal Affect: normal affect Other: Good insight and judgment, pleasant Quality VTE Prophylaxis VTE prophylaxis: mechanical ordered and pharmacologic ordered Hospitalist MIPS Advance Care Plan I have confirmed that the patient's Advanced Care Plan is present, code status is documented, or surrogate decision maker is listed in patient medical record.: Yes Medication Reconciliation I have utilized all available resources to obtain, update and review the patients current medications (includes all prescriptions, OTC, herbals, cannabis, and nutritional supplements).: Yes
[2024-10-14] MEDS: KETOROLAC 15 MG/ML VIAL (*BKC) 7.5 MG IV PUSH ×2 (17:06→23:55)
[2024-10-14] MEDS: CHOLECALCIFEROL 1,000 UNITS TABLET 2000 UNITS PO (17:08)
[2024-10-14] MEDS: ASCORBIC ACID 500 MG TABLET 1000 MG PO (17:08)
[2024-10-14] MEDS: oxyCODONE HCL (*CRX) 5 MG TAB IR PO ×3 (17:09→23:55)
[2024-10-14] MEDS: SENNA/DOCUSATE SODIUM TABLET 2 TAB PO (17:09)
[2024-10-14] MEDS: METOPROLOL SUCCINATE EXT REL 25 MG TABCR PO (20:52)
[2024-10-14] MEDS: FAMOTIDINE 20 MG TABLET PO (20:53)
[2024-10-15] VITALS: PULSE 75
[2024-10-15 03:31] VITALS: BP 126/58; PULSE 75; RESP 18; TEMP 36.4; O2SAT 98
[2024-10-15 04:00] VITALS: PULSE 77
[2024-10-15] MEDS: oxyCODONE HCL (*CRX) 5 MG TAB IR PO ×2 (04:16→09:07)
[2024-10-15 06:21] LABS: Basophils Percent Auto 0.3 % (0.2-1.2); Eosinophils Percent Auto 0.1 % (0-4.4); Hematocrit 27.1 % (37.0-47.0); Hemoglobin 8.9 g/dL (12.0-15.0); Immature Granulocyte Absolute 0.03 K/mm3 (0.00-0.031); Immature Granulocyte Percent A 0.4 % (0-0.5); Lymphocytes Absolute Auto 0.65 K/mm3 (0.9-3.2); Lymphocytes Percent Auto 8.8 % (18.3-44.2); Mean Corpuscular HGB Conc 32.8 g/dl (32-36); Mean Corpuscular Hemoglobin 31.9 pg (26-34); Mean Corpuscular Volume 97.1 fl (80-100); Mean Platelet Volume 8.7 fl (7.4-10.4); Monocytes Absolute Auto 0.8 K/mm3 (0.1-0.6); Monocytes Percent Auto 10.5 % (2.6-8.5); Neutrophils Absolute Auto 5.9 K/mm3 (1.3-6.7); Neutrophils Percent Auto 79.9 % (45.5-73.1); Platelet Count Result 233 k/mm3 (150-375); Red Blood Count 2.79 M/mm3 (4.2-5.4); Red Cell Distribution Width 12.7 % (11.5-14.5); White Blood Count 7.4 K/mm3 (4.5-10.0)
[2024-10-15] MEDS: LEVOTHYROXINE SODIUM 100 MCG TABLET PO (06:23)
[2024-10-15] MEDS: ceFAZolin 1 GM/NS 50 ML 1 GM/50 ML BAG IVPB (06:23)
[2024-10-15] MEDS: VANCOMYCIN 750 MG/NS 250 ML 750 MG/250 ML BAG 250 MG IVPB (06:23)
[2024-10-15 06:40] LABS: Anion Gap 7 mmol/L (4-12); Blood Urea Nitrogen 19 mg/dL (7-17); Calcium 8.2 mg/dL (8.4-10.2); Carbon Dioxide 25 mmol/L (22-30); Chloride 101 mmol/L (98-107); Estimated CRCL calculation 58 ml/min; Estimated Glomerular Filt Rate > 60; Glucose 108 mg/dL (65-110); Potassium 3.9 mmol/L (3.4-5.0); Sodium 133 mmol/L (137-145)
--- NOTE | 2024-10-15 07:25 | P.PNOP_ITS ---
Subjective Subjective Date/Time Seen: 10/15/24 07:25 Interval history: Postop day 1 patient is alert. She is afebrile vital signs are stable. Morning labs are noted. Hemoglobin 8.9. Patient tolerating this well. Patient is having no symptoms from the mild anemia. Dressing is dry and intact. Neurovascularly she is intact. Pain overall is very well controlled. She has had no episodes RVR overnight. She was up walking and exercising yesterday with physical therapy. Will plan have the patient work with therapy this morning and once IV antibiotics have been completed she continues to be doing well she will be discharged home later this morning. Objective Data Vital Signs Vital Signs: Vital Signs - 24 hr 10/14/24 11:23 10/14/24 11:35 10/14/24 11:50 Temperature 98.7 F Pulse Rate 82 80 82 Respiratory Rate 18 18 16 Blood Pressure 111/53 L 133/72 134/62 Pulse Oximetry 98 99 100 Oxygen Delivery Simple Face Mask Simple Face Mask Room Air Oxygen Flow Rate 8 8 10/14/24 12:05 10/14/24 12:20 10/14/24 12:45 Temperature Pulse Rate 80 80 Respiratory Rate 17 15 Blood Pressure 131/64 130/66 Pulse Oximetry 100 100 Oxygen Delivery Room Air Room Air Room Air Oxygen Flow Rate 10/14/24 13:50 10/14/24 14:05 10/14/24 14:35 Temperature 97.6 F 98.0 F 97.9 F Pulse Rate 82 79 76 Respiratory Rate 16 16 16 Blood Pressure 124/64 125/63 116/58 L Pulse Oximetry 98 98 97 Oxygen Delivery Oxygen Flow Rate 10/14/24 14:55 10/14/24 15:35 10/14/24 15:42 Temperature 97.4 F L Pulse Rate 74 Respiratory Rate 16 Blood Pressure 124/60 Pulse Oximetry 98 Oxygen Delivery Room Air Room Air Oxygen Flow Rate 10/14/24 16:00 10/14/24 20:00 10/14/24 20:13 Temperature 97.3 F L Pulse Rate 78 77 72 Respiratory Rate 18 Blood Pressure 126/63 Pulse Oximetry 98 Oxygen Delivery Oxygen Flow Rate 10/14/24 23:43 10/15/24 00:00 10/15/24 03:31 Temperature 97.6 F 97.5 F L Pulse Rate 78 75 75 Respiratory Rate 18 18 Blood Pressure 114/70 126/58 L Pulse Oximetry 99 98 Oxygen Delivery Oxygen Flow Rate 10/15/24 04:00 Temperature Pulse Rate 77 Respiratory Rate Blood Pressure Pulse Oximetry Oxygen Delivery Oxygen Flow Rate Intake/Output Intake/Output: Intake & Output 10/12/24 10/13/24 10/14/24 10/15/24 23:59 23:59 23:59 23:59 Intake Total 670 50 Balance 670 50 Meds/Results Medications: Active Medications Generic Name Dose Route Start Last Admin Trade Name Freq PRN Reason Stop Dose Admin Acetaminophen 650 mg 10/14/24 14:00 10/15/24 05:51 Acetaminophen 325 Mg Tablet PO Not Given Q4H EDGARD Apixaban 2.5 mg 10/15/24 09:00 Apixaban 2.5 Mg Tablet PO 10/26/24 21:01 Q12HR [facility] Ascorbic Acid 1,000 mg 10/14/24 17:00 10/14/24 17:08 Ascorbic Acid 500 Mg Tablet PO 1,000 mg BID EDGARD Administration Cefdinir 300 mg 10/15/24 09:00 Cefdinir 300 Mg Capsule PO Q12HR EDGARD Celecoxib 100 mg 10/15/24 08:00 Celecoxib 100 Mg Capsule PO DAILY@0800 EDGARD Diphenhydramine HCl 25 mg 10/14/24 12:26 Diphenhydramine Hcl Inj 50 Mg/Ml Vial IV PUSH Q6H PRN Itching Famotidine 20 mg 10/14/24 21:00 10/14/24 20:53 Famotidine 20 Mg Tablet PO 20 mg Q12HR EDGARD Administration Cefazolin Sodium 1 gm in 50 mls @ 100 mls/hr 10/14/24 15:00 10/15/24 06:23 Ancef 1 Gm/Ns 50 Ml IVPB 10/15/24 07:29 100 mls/hr Q8H EDGARD Administration Vancomycin HCl 750 mg in 250 mls @ 250 mls/hr 10/14/24 19:00 10/15/24 06:23 Vancomycin 750 Mg/Ns 250 Ml 15.7895 mg/kg (750 mg) 10/15/24 07:59 250 mls/hr IVPB Administration Q12H EDGARD Levothyroxine Sodium 100 mcg 10/15/24 06:30 10/15/24 06:23 Levothyroxine Sodium 100 Mcg Tablet PO 100 mcg DAILY@0630 EDGARD Administration Metoprolol Succinate 25 mg 10/14/24 21:00 10/14/24 20:52 Metoprolol Succinate Ext Rel 25 Mg Tabcr PO 25 mg HS EDGARD Administration Miscellaneous Information 1 each 10/14/24 00:01 Nonformulary Drug (Ibandronate 150 Mg Tablet) Monthly. Hold While Hospitalized? XX 11/13/24 00:00 CLARIFY EDGARD Morphine Sulfate 2 mg 10/14/24 12:26 Morphine Sulfate (*Crx) 2 Mg/Ml Inj IV PUSH Q2H PRN Breakthrough Pain Rated 4-6 or NPO Naloxone HCl 0.1 mg 10/14/24 12:26 Naloxone Hcl 0.4 Mg/Ml Vial IV PUSH Q2M PRN Opiate Reversal Non-Formulary Medication 150 mg 11/13/24 09:00 Ibandronate PO 12/13/24 08:59 MONTHLY [facility] Ondansetron HCl 4 mg 10/14/24 12:26 Ondansetron Inj 4 Mg/2 Ml Vial IV PUSH Q4H PRN Nausea And Vomiting Oxycodone HCl 5 mg 10/14/24 12:26 10/15/24 04:16 Oxycodone Hcl (*Crx) 5 Mg Tab Ir PO 5 mg Q4H EDGARD Administration Oxycodone HCl 5 mg 10/14/24 12:26 Oxycodone Hcl (*Crx) 5 Mg Tab Ir PO Q4H PRN Pain Rated 7-10 Polyethylene Glycol 17 gm 10/15/24 09:00 Polyethylene Glycol 3350 17 Gm Powd.Pack PO QAM EDGARD Senna/Docusate Sodium 2 tab 10/14/24 17:00 10/14/24 17:09 Senna/Docusate Sodium Tablet PO 2 tab BID EDGARD Administration Vitamin D 2,000 units 10/14/24 17:00 10/14/24 17:08 Cholecalciferol 1,000 Units Tablet PO 2,000 units BID EDGARD Administration Radiology Results: ITS Impressions Knee X-Ray 10/14/24 11:27 IMPRESSION: 1. Left total knee arthroplasty, negative for postoperative purposes. Labs Labs: Laboratory Results - last 24 hr 10/15/24 05:50 WBC 7.4 RBC 2.79 L Hgb 8.9 L Hct 27.1 L MCV 97.1 MCH 31.9 MCHC 32.8 RDW 12.7 Plt Count 233 MPV 8.7 Immature Gran % (Auto) 0.4 Neut % (Auto) 79.9 H Lymph % (Auto) 8.8 L [place] % (Auto) 10.5 H Eos % (Auto) 0.1 Baso % (Auto) 0.3 Lymph # (Auto) 0.65 L [place] # (Auto) 0.8 H Eos # (Auto) 0.0 Baso # (Auto) 0.0 Abs Immat Gran (auto) 0.03 Absolute Neuts (auto) 5.9 Absolute Nucleated RBC 0.000 Nucleated RBC % 0.0 Sodium 133 L Potassium 3.9 Chloride 101 Carbon Dioxide 25 Anion Gap 7 BUN 19 H Creatinine 0.66 L Estim Creat Clear Calc 58 Estimated GFR > 60 Glucose 108 Calcium 8.2 L
[2024-10-15 08:00] VITALS: PULSE 75
[2024-10-15] MEDS: APIXABAN 2.5 MG TABLET PO (09:06)
[2024-10-15] MEDS: CHOLECALCIFEROL 1,000 UNITS TABLET 2000 UNITS PO (09:06)
[2024-10-15] MEDS: ASCORBIC ACID 500 MG TABLET 1000 MG PO (09:07)
[2024-10-15] MEDS: FAMOTIDINE 20 MG TABLET PO (09:07)
[2024-10-15] MEDS: CELECOXIB 100 MG CAPSULE PO (09:07)
[2024-10-15] MEDS: SENNA/DOCUSATE SODIUM TABLET 2 TAB PO (09:07)
[2024-10-15] MEDS: CEFDINIR 300 MG CAPSULE PO (09:07)
[2024-10-15] MEDS: ACETAMINOPHEN 325 MG TABLET 650 MG PO (09:07)
== END 2024-10-15 10:50 | disposition home or self-care (01) ==
LOC: ANHSURGERY 06:02 → ANH3MEDSUR 13:45
PROVIDERS: Physician Assistant Surgical; PCP Internal Medicine; Visit Provider Orthopaedic Surgery
PROC: (CPT 27447; principal; 2024-10-14 07:30)
DX: M17.12 Unilateral primary osteoarthritis, left knee (principal); M25.762 Osteophyte, left knee; I10 Essential (primary) hypertension; I48.92 Unspecified atrial flutter; I48.91 Unspecified atrial fibrillation; Z79.01 Long term (current) use of anticoagulants; Z79.83 Long term (current) use of bisphosphonates; Z98.890 Other specified postprocedural states
CPT/HCPCS: 27447; 36415; 73560; 80048; 85025; 86850; 86900; 86901; 97110; 97116; 97161; 97165; 97530; 97535; A9270; C1713; C1776; J0171; J0690; J1100; J1885; J2003; J2270; J2405; J2704; J2795; J3010; J3370; J7030; J7120

== ENCOUNTER 2024-11-14 13:00 | Outpatient (RCR) | payer MEDICARE, SELFPAY ==
--- NOTE | 2024-10-17 14:38 | OPREHPOC ---
Outpatient Therapy Plan of Care This is a Multidisciplinary Plan of Care that may contain components documented by all disciplines (PT, OT, and ST.) PT Problem 1 PT Problem #1 Knowledge Deficit PT Goal 1 Goal / Goal Update [place] with HEP Target Visit 4 PT Problem 2 PT Problem #2 Impaired Gait PT Goal 1 Goal / Goal Update Ambulate independent of AD with even stride length bilaterally Target Visit 8 PT Problem 3 PT Problem #3 Impaired Range of Motion PT Goal 1 Goal / Goal Update 1. Achieve terminal knee extension ROM to normalize gait pattern 2. Achieve 125 degrees of left knee flexion ROM Target Visit 8 PT Problem 4 PT Problem #4 Impaired Strength PT Goal 1 Goal / Goal Update Achieve gross left knee strength of 5/5 to ensure stability with functional activity
--- NOTE | 2024-10-17 14:39 | PTOPEVAL1 ---
Assessment and note entered by Cameron Barakat, PT Evaluation Information Assessment Status Evaluation Diagnosis S/P Left TKA ICD-10 Condition Codes (PT) Pain in left knee M25.562 Onset 10/14/24 Subjective Information Reports that she has been alternating Tylenol with Hydrocodone. She is walking with a single point cane in the right UE. She has some steps that she has to do an dis struggling a bit. She had history of pain in knee with injections and back pain. Reported Pain Level Pain Score 0: Self Report Assessment PT Clinical Summary Patient presents with knee swelling, loss of ROM, loss of gait pattern and decreased functional mobility following total knee arthroplasty. Signs and symptoms typical of post operative condition and patient will benefit from skilled therapy to address deficits and improve gross functional mobility. Plan of Care Interventions Gait Training,Manual Therapy,Neuro Re-education, Therapeutic Activities,Therapeutic Exercise PT Services Indicated Yes Treatment Frequency and 2x/week for 8 visits Duration These treatments will address the objective and functional deficits as defined above. The patient will be advanced safely and appropriately in order for the patient to progress towards his/her prior level of function. Additional exercises will be introduced and as well as a comprehensive home exercise program upon discharge, if needed, ?to ensure carryover of functional gains achieved in the clinic. This treatment plan has been reviewed and agreement upon by the patient.
--- NOTE | 2024-11-14 14:17 | OPREHPOC ---
Outpatient Therapy Plan of Care This is a Multidisciplinary Plan of Care that may contain components documented by all disciplines (PT, OT, and ST.) PT Problem 1 PT Problem #1 Knowledge Deficit PT Goal 1 Goal / Goal Update [place] with HEP Target Visit 4 Progress Met PT Problem 2 PT Problem #2 Impaired Gait PT Goal 1 Goal / Goal Update Ambulate independent of AD with even stride length bilaterally Target Visit 8 Progress Met PT Problem 3 PT Problem #3 Impaired Range of Motion PT Goal 1 Goal / Goal Update 1. Achieve terminal knee extension ROM to normalize gait pattern 2. Achieve 125 degrees of left knee flexion ROM 11/14/24: Achieved 120 degrees flexion Target Visit 8 Progress Partially Met PT Problem 4 PT Problem #4 Impaired Strength PT Goal 1 Goal / Goal Update Achieve gross left knee strength of 5/5 to ensure stability with functional activity Met Progress Met
--- NOTE | 2024-11-14 14:17 | PTOPDC ---
Assessment and note entered by Cameron Barakat, PT Evaluation Information Assessment Status Discharge Diagnosis S/P Left TKA ICD-10 Condition Codes (PT) Pain in left knee M25.562 Onset 10/14/24 Subjective Information Reports that she feels she is doing very well at this point. States that she is still having some knee irritation and has been more cognizant of reducing her walking distance and impact activity. She has continued to work on her flexion every day and has been more active in the pool. Reported Pain Level Pain Score 2: Self Report Pain Score 3: Self Report Assessment PT Clinical Summary Patient has achieve full ROM this session. She continues to have some knee edema which she has been more aware of to reduce impact activity and reduce. 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 Plan of Care PT Services Indicated Yes
== END 2024-11-14 14:33 | disposition home or self-care (01) ==
LOC: ANHGOSHPT 13:00
PROVIDERS: PCP Internal Medicine; Visit Provider Orthopaedic Surgery
DX: Z47.1 Aftercare following joint replacement surgery (principal); M17.12 Unilateral primary osteoarthritis, left knee; Z96.652 Presence of left artificial knee joint
CPT/HCPCS: 97014; 97110; 97140; 97161; 97530; G0283